=== PATIENT | male | born 1955 | race Caucasian/White ===

== ENCOUNTER 2017-06-27 02:57 | Inpatient (IN) | payer MEDICARE, OTHER ==
[2017-06-27] MEDS ORDERED: ALBUTEROL NEBULIZED 2.5 MG/3 ML INHALATION STA (03:16)
[2017-06-27] MEDS ORDERED: SODIUM CHLORIDE 0.9% 500 ML IV STA (03:16)
[2017-06-27] MEDS ORDERED: IPRATROPIUM 0.5 MG/2.5 ML NEBU INHALATION STA (03:16)
[2017-06-27] MEDS ORDERED: SODIUM CHLORIDE 0.9% 1,000 ML IV STA ×2 (03:16)
[2017-06-27] MEDS ORDERED: ACETAMINOPHEN IV (For NPO) 1,000 MG in EMPTY BAG 1 BAG IVPB STA (03:16)
[2017-06-27] MEDS ORDERED: KETOROLAC 30 MG/ML 1 ML VIAL IVP STA (03:16)
[2017-06-27] MEDS ORDERED: LEVOFLOXACIN 750MG-D5W PMX 750 MG in DEXTROSE/WATER 1 150ML.BAG IVPB STA (03:16)
[2017-06-27] MEDS ORDERED: LORazepam 2 MG/ML INJ IV STA (03:22)
[2017-06-27] MEDS ORDERED: PNEUMONIA PROTOCOL UTILIZED 1 EACH MISC PO PRN (03:24)
--- NOTE | 2017-06-27 03:24 | ED ---
General Adult HPI - General Chief complaint: Shortness of Breath Stated complaint: SANTANA Time Seen by Provider: 06/27/17 03:15 Source: EMS, RN notes reviewed, old records reviewed Mode of arrival: EMS Limitations: no limitations - History of Present Illness Initial comments: This is a 62 -year-old male to the ER for evaluation of fever shortness of breath. Patient's poor strain secondary to medical condition, CPAP. Patient brought in by caregiver for evaluation regarding to low pulse ox elevated fever significant shortness of breath. Patient got to the bathroom and staff noticed patient to be not acting appropriately. He did notice fever with difficulty breathing. History otherwise obtained from chart - Related Data Allergies Allergy/AdvReac Type Severity Reaction Status Date / Time No Known Allergies Allergy Verified 06/27/17 03:31 Review of Systems ROS Statement: Those systems with pertinent positive or pertinent negative responses have been documented in the HPI. ROS Other: All systems not noted in ROS Statement are negative. Past Medical History Past Medical History: Hypertension, Seizure Disorder Additional Past Medical History / Comment(s): Cerebral palsy History of Any Multi-Drug Resistant Organisms: None Reported Past Psychological History: No Psychological Hx Reported Smoking Status: Never smoker Past Alcohol Use History: None Reported Past Drug Use History: None Reported General Exam Limitations: no limitations General appearance: alert, in no apparent distress Head exam: Present: atraumatic, normocephalic, normal inspection Eye exam: Present: normal appearance, PERRL, EOMI. Absent: scleral icterus, conjunctival injection, periorbital swelling ENT exam: Present: normal exam, mucous membranes moist Neck exam: Present: normal inspection. Absent: tenderness, meningismus, lymphadenopathy Respiratory exam: Present: wheezes, accessory muscle use, decreased breath sounds, prolonged expiratory. Absent: normal lung sounds bilaterally, respiratory distress, rales, rhonchi, stridor Cardiovascular Exam: Present: normal rhythm, tachycardia, normal heart sounds. Absent: systolic murmur, diastolic murmur, rubs, gallop, clicks GI/Abdominal exam: Present: soft, normal bowel sounds. Absent: distended, tenderness, guarding, rebound, rigid Extremities exam: Present: normal inspection, full ROM, normal capillary refill. Absent: tenderness, pedal edema, joint swelling, calf tenderness Back exam: Present: normal inspection Neurological exam: Present: alert, oriented X3, CN II-XII intact Psychiatric exam: Present: normal affect, normal mood Skin exam: Present: warm, dry, intact, normal color. Absent: rash Course Vital Signs 06/27/17 06/27/17 03:00 03:42 Temperature 102.6 F H Pulse Rate 56 L 142 H Respiratory 28 H Rate Blood Pressure 118/72 O2 Sat by Pulse 98 Oximetry - Reevaluation(s) Reevaluation #1: 06/27/17 03:23 Patient on nonrebreather remaining hypoxic, will try BiPAP Reevaluation #2: 06/27/17 04:22 Patient actually improving EKG Findings - EKG Comments: EKG Findings:: EKG shows sinus tachycardia rate 149, ID [id number], QRS 98, QTC 500 Medical Decision Making - Medical Decision Making 62 male the ER for evaluation. Patient's presenting for evaluation regards to difficulty breathing low oxygen fever. Positive pneumonia on exam bilateral. Patient started on IV antibiotics and placed on BiPAP secondary to low O2 - Lab Data Result diagrams: 06/27/17 03:24 Lab Results 06/27/17 06/27/17 06/27/17 Range/Units 03:24 03:24 03:24 WBC 9.8 (3.8-10.6) k/uL RBC 4.01 L (4.30-5.90) m/uL Hgb 12.5 L (13.0-17.5) gm/dL Hct 36.7 L (39.0-53.0) % MCV 91.6 (80.0-100.0) fL MCH 31.2 (25.0-35.0) pg MCHC 34.0 (31.0-37.0) g/dL RDW 12.9 (11.5-15.5) % Plt Count 187 (150-450) k/uL Neutrophils % 89 % Lymphocytes % 6 % Monocytes % 4 % Eosinophils % 1 % Basophils % 0 % Neutrophils # 8.7 H (1.3-7.7) k/uL Lymphocytes # 0.6 L (1.0-4.8) k/uL Monocytes # 0.4 (0-1.0) k/uL Eosinophils # 0.1 (0-0.7) k/uL Basophils # 0.0 (0-0.2) k/uL PT (9.0-12.0) sec INR (<1.2) APTT (22.0-30.0) sec NT-Pro-B Natriuret Pep 89 pg/mL Influenza Type A RNA Not Detected (Not Detectd) Influenza Type B (PCR) Not Detected (Not Detectd) 06/27/17 Range/Units 03:24 WBC (3.8-10.6) k/uL RBC (4.30-5.90) m/uL Hgb (13.0-17.5) gm/dL Hct (39.0-53.0) % MCV (80.0-100.0) fL MCH (25.0-35.0) pg MCHC (31.0-37.0) g/dL RDW (11.5-15.5) % Plt Count (150-450) k/uL Neutrophils % % Lymphocytes % % Monocytes % % Eosinophils % % Basophils % % Neutrophils # (1.3-7.7) k/uL Lymphocytes # (1.0-4.8) k/uL Monocytes # (0-1.0) k/uL Eosinophils # (0-0.7) k/uL Basophils # (0-0.2) k/uL PT 13.6 H (9.0-12.0) sec INR 1.5 H (<1.2) APTT 28.8 (22.0-30.0) sec NT-Pro-B Natriuret Pep pg/mL Influenza Type A RNA (Not Detectd) Influenza Type B (PCR) (Not Detectd) - Radiology Data Radiology results: report reviewed (Chest x-ray positive for bilateral pneumonia ), image reviewed Critical Care Time Critical Care Time: Yes Total Critical Care Time: 31 Disposition Clinical Impression: Community acquired pneumonia, Hypoxia, Acute respiratory failure Disposition: ADMITTED IP TO THIS [facility] Condition: Serious Referrals: Willy Woodson MD [Primary Care Provider] - 1-2 days
[2017-06-27 03:40] LABS: Basophils % (A) 0 %; Eosinophils # (A) 0.1 k/uL (0-0.7); Eosinophils % (A) 1 %; HCT 36.7 % (39.0-53.0); HGB 12.5 gm/dL (13.0-17.5); Lymphocytes # (A) 0.6 k/uL (1.0-4.8); Lymphocytes % (A) 6 %; MCH 31.2 pg (25.0-35.0); MCV 91.6 fL (80.0-100.0); Mean Platelet Volume 7.1; Monocytes # (A) 0.4 k/uL (0-1.0); Monocytes % (A) 4 %; Neutrophils # (A) 8.7 k/uL (1.3-7.7); Neutrophils % (A) 89 %; Platelet Count 187 k/uL (150-450); RBC 4.01 m/uL (4.30-5.90); RDW 12.9 % (11.5-15.5); WBC 9.8 k/uL (3.8-10.6)
[2017-06-27 03:48] LABS: INR 1.5 (<1.2); Partial Thromboplastin Time 28.8 sec (22.0-30.0); Prothrombin Time 13.6 sec (9.0-12.0)
--- NOTE | 2017-06-27 04:07 | XR ---
ADDENDUM - Added by Arcenio Morse MD on 06/27/2017 4:07 AM (-07:00) The last words of the impression should state: Suspicious for pneumonia, not suspicious nymph for pneumonia. EXAM: XR Chest, 1 View CLINICAL HISTORY: ITS.REASON XR Reason: sob TECHNIQUE: Frontal view of the chest. COMPARISON: None. FINDINGS: Lungs: Patchy opacities in both perihilar regions, left greater than right, as well as the left lung base. Pleural space: Unremarkable. No pneumothorax. Heart: Mild cardiomegaly. Mediastinum: See above. Bones/joints: Severe degenerative changes of both shoulder joints. Upper abdomen: Asymmetric elevation the right hemidiaphragm. IMPRESSION: Patchy opacities in both lungs, left greater than right, may represent edema although are suspicious nymph for pneumonia.
[2017-06-27 04:36] LABS: Creatine Kinase MB 1.3 ng/mL (0.0-2.4); Troponin I 0.013 ng/mL (0.000-0.034)
[2017-06-27 04:39] LABS: ALT 23 U/L (21-72); AST 22 U/L (17-59); Albumin 2.9 g/dL (3.5-5.0); Alkaline Phosphatase 66 U/L (38-126); Anion Gap 10 mmol/L; Blood Urea Nitrogen 19 mg/dL (9-20); Calcium 7.8 mg/dL (8.4-10.2); Carbon Dioxide 22 mmol/L (22-30); Chloride 100 mmol/L (98-107); Glucose 143 mg/dL (74-99); Magnesium 1.3 mg/dL (1.6-2.3); Potassium 3.4 mmol/L (3.5-5.1); Sodium 132 mmol/L (137-145); Total Bilirubin 0.8 mg/dL (0.2-1.3); Total Protein 5.3 g/dL (6.3-8.2)
[2017-06-27] MEDS ORDERED: CLINDAMYCIN 600 MG in DEXTROSE 5% IN WATER 50 ML IVPB SCH ×2 (08:00)
[2017-06-27] MEDS: MAGNESIUM SULFATE-D5W PMX 1 GM in DEXTROSE/WATER 1 100ML.BAG IVPB SCH ×4 (09:42→14:39)
[2017-06-27] MEDS: SODIUM CHLORIDE 0.9% 1,000 ML IV SCH ×3 (09:48→20:48)
[2017-06-27] MEDS: ENOXAPARIN 40 MG/0.4 ML SYRINGE SQ SCH (09:49)
[2017-06-27] MEDS: POTASSIUM CHLORIDE ER 20 MEQ TAB.ER PO SCH ×3 (09:50→14:40)
[2017-06-27] MEDS: busPIRone HCl 10 MG TAB PO SCH ×2 (10:23→20:48)
[2017-06-27] MEDS: ARIPiprazole 5 MG TAB PO SCH (10:24)
--- NOTE | 2017-06-27 11:04 | HP ---
HISTORY AND PHYSICAL CHIEF COMPLAINT: Shortness of breath and fever. HISTORY OF PRESENT ILLNESS: This is a 62-year-old gentleman who was brought into the emergency room from the [facility]. The patient got up to get to the bathroom in the night, noted that he was short of breath and had fever. They brought him to the emergency room. In the ER, the patient apparently had a temperature of 102.6 with pulse rate of 56, respirations 28. He was noted to have a pulse ox of about 84% and was placed on a non-rebreather, with 98%. He subsequently was placed on BiPAP. He was admitted to the hospital. His heart rate has gone up to 142. Chest x-ray suggested pneumonia. The patient this morning at the time of my evaluation is afebrile with a temperature 95.9 axillary, pulse 109, respirations 24, blood pressure 101/69 and pulse ox of 98% on 100% BiPAP of 10/5. The patient is alert as usual. He does have a history of mental retardation, previous seizure disorder, head injury. The patient is handicapped and lives in a nursing facility. The patient has otherwise history of hypertension and degenerative arthritis. The patient has not had any seizures recently. He is on medications for behavioral issues and seen by Psychiatry. PAST MEDICAL HISTORY: As mentioned about, history of mental retardation and seizure disorder associated. The patient also has a history of previous injuries. He has had a history of hypertension. No history of any diabetes, lung disease, liver disease, kidney disease. No history of any ulcers, TB, hepatitis. No history of reported rheumatic fever. No history of any myocardial infarction or CVA. Does have significant degenerative arthritis, especially affecting the right knee and the shoulder joints. The patient is basically wheelchair to bed status. REVIEW OF SYSTEMS: NEURO: Denies any headaches or dizziness. PSYCH: Cooperative. CARDIAC: Denies chest pain. RESPIRATORY: Denies shortness of breath. Does have a cough. GI: No reported nausea, vomiting. : No reported symptoms of dysuria or hematuria. EXTREMITIES: Chronic pain in knee joint and shoulder. CONSTITUTIONAL: He had a temperature at the time of admission. PAST SURGICAL HISTORY: Left shoulder and neck surgery. PERSONAL HISTORY: Non-smoker. Alcohol none. ALLERGIES: NONE KNOWN. MEDICATIONS: 1. Abilify 5 mg daily. 2. Tofranil 10 mg at bedtime. 3. Tylenol PM at bedtime. 4. Multivitamin daily. 5. Lamictal 150 mg at bedtime. 6. Lisinopril 10 mg daily. 7. Buspirone 30 mg b.i.d. SOCIAL HISTORY: The patient has never been . FAMILY MEDICAL HISTORY: Father ; he had a history of lung carcinoma, renal carcinoma, COPD and coronary artery disease. Mother is , too. Patient had a sister who had sudden at the age of 50. No other siblings. The patient's guardian, I believe, is a niece, and public guardian. PHYSICAL EXAMINATION: Pleasant 62-year-old at present on the BiPAP, which is switched over to nasal cannula at 5 L with oxygen saturation 93%. VITALS: Temperature 95.9, pulse 109, respirations 24, blood pressure 101/69. HEENT: Normocephalic. Nostrils are clear. Oral cavity is moist. Dentition fair. Ears reveal no drainage. NECK: Decreased range of motion. No JVD. No carotid bruits. CHEST EXAMINATION: Difficult to assess. Patient does not take good deep breaths for assessment. CARDIAC: Normal S1, S2 with no gallops, murmurs. ABDOMEN: Soft. No palpable masses. Bowel sounds normal. No organomegaly. No abdominal bruits. Extremities reveal no edema. The patient has decreased range of motion of the right knee and the left shoulder. Skin is intact. Neurologically patient at baseline is able to communicate with difficulty in understanding speech. Does move his upper and lower extremities spontaneously. Plantars are equivocal. LABORATORY ASSESSMENT: White count normal at 9.8, hemoglobin 12.5. INR is 1.5, potassium 3.4, sodium 132. BUN and creatinine are normal. Glucose 143. Creatinine is 0.5, glucose 143, random magnesium 1.3. Albumin 2.9. Influenza negative. Troponin 0.013. BNP is 89. Chest x-ray shows fluffy infiltrates with opacities in both lungs, left greater than right; may represent edema, although suspicious for pneumonia. ASSESSMENT: 1. Pneumonia. 2. Acute respiratory failure. 3. Hypoxia. 4. History of mental retardation. 5. Hypertension, on medical therapy. 6. Hyponatremia. 7. Hypokalemia. 8. Hypomagnesemia. PLAN: The patient at present will be continued on oxygen therapy. He may require BiPAP intermittently. The patient will be placed on updrafts, oxygen, antibiotics. Will discontinue the clindamycin. Continue the Levaquin. The patient's prognosis remains guarded. Condition discussed with the patient. PATY / ABELINO: [id number] /
[2017-06-27] MEDS: IPRATROPIUM-ALBUTEROL 3 ML NEB INHALATION SCH ×3 (11:15→19:56)
[2017-06-27 18:39] LABS: Appearance,Urine Clear (Clear); Bilirubin,Urine Negative (Negative); Blood,Urine Negative (Negative); Color,Urine Yellow; Glucose,Urine (UA) 1+ (Negative); Ketones,Urine Negative (Negative); Leukocyte Esterase,Urine Negative (Negative); Nitrite,Urine Negative (Negative); PH, Urine 5.5 (5.0-8.0); Protein,Urine Trace (Negative); Specific Gravity,Urine 1.019 (1.001-1.035); Urobilinogen,Urine <2.0 mg/dL (<2.0)
[2017-06-27] MEDS: lamoTRIgine 100 MG TAB PO SCH (20:48)
[2017-06-28] MEDS ORDERED: ONDANSETRON 4 MG/2 ML VIAL IVP PRN (01:28)
--- NOTE | 2017-06-28 01:53 | XR ---
EXAMINATION TYPE: XR abdomen 1V DATE OF EXAM: 06/28/2017 COMPARISON: NONE HISTORY: Vomiting TECHNIQUE: 2 views FINDINGS: There is gaseous distention of loops of large and small bowel. There is gas down to the rec char. I do not see evidence of a mechanical bowel obstruction. There is no sign of free air. There are no pathologic calcifications over the kidneys. IMPRESSION: Intestinal gas pattern consistent with ileus. No sign of free air.
[2017-06-28] MEDS: LEVOFLOXACIN 750MG-D5W PMX 750 MG in DEXTROSE/WATER 1 150ML.BAG IVPB SCH (05:49)
[2017-06-28] MEDS: IPRATROPIUM-ALBUTEROL 3 ML NEB INHALATION SCH ×4 (06:45→19:39)
--- NOTE | 2017-06-28 07:34 | XR ---
EXAMINATION TYPE: XR chest 1V DATE OF EXAM: 06/28/2017 CLINICAL HISTORY: Difficulty breathing and pneumonia progress study. TECHNIQUE: Single AP portable upright view of the chest is obtained. COMPARISON: Chest x-ray from one day earlier and older study October 12, 2011 FINDINGS: The osseous structures are demineralized. Advanced degenerative change in both shoulders i s redemonstrated. There is persistent mild cardiomegaly. There is chronic parenchymal changes with pe rsistent right medial basilar opacity and left mid to lower lung opacities. No large pleural effusion or pneumothorax is seen bilaterally. IMPRESSION: Overall stable findings, cardiomegaly with left greater than right bilateral lower lung infiltrates and/or atelectasis. No significant change from one day earlier.
[2017-06-28] MEDS: busPIRone HCl 10 MG TAB PO SCH ×2 (08:40→20:43)
[2017-06-28] MEDS: ENOXAPARIN 40 MG/0.4 ML SYRINGE SQ SCH (08:40)
[2017-06-28] MEDS: ARIPiprazole 5 MG TAB PO SCH (08:41)
[2017-06-28] MEDS: IMIPRAMINE 10 MG TAB PO SCH (08:41)
[2017-06-28] MEDS: LISINOPRIL 10 MG TAB PO SCH (08:41)
[2017-06-28] MEDS: SODIUM CHLORIDE 0.9% 1,000 ML IV SCH ×2 (10:47→20:41)
[2017-06-28 10:53] LABS: Anion Gap 7 mmol/L; Blood Urea Nitrogen 10 mg/dL (9-20); Carbon Dioxide 27 mmol/L (22-30); Chloride 106 mmol/L (98-107); Glucose 111 mg/dL (74-99); Magnesium 2.1 mg/dL (1.6-2.3); Potassium 3.5 mmol/L (3.5-5.1); Sodium 140 mmol/L (137-145)
--- NOTE | 2017-06-28 11:59 | P.PN ---
Subjective Progress Note Date: 06/28/17 Principal diagnosis: Pneumonia with acute respiratory failure This 62-year-old gentleman was admitted to the hospital with shortness of breath fever and hypoxia. The patient initially needed BiPAP. Now is on 5 L of oxygen maintaining adequate oxygenation. Patient has no complaints. His handicapped mentally and physically. But is able to communicate. The patient has had no further fever and influenza was negative. Vitals have remained stable. No reported nausea vomiting does have some cough denies chest pain shortness of breath. Wants to go home. REVIEW OF SYSTEMS: Neuro: Denies any headaches dizziness. Psych: Behavior stable Cardiac: Denies chest Respiratory: Has some cough. GI: Denies abdominal pain no reported nausea vomiting diarrhea :, Incontinence Extremities: Chronic knee pain Skin: Intact. Constitutional: No fever, chills. Objective - Vital Signs Vital signs: Vital Signs Temp 98.1 F 06/28/17 11:24 Pulse 103 H 06/28/17 11:24 Resp 20 06/28/17 11:24 BP 128/72 06/28/17 11:24 Pulse Ox 95 06/28/17 11:24 Intake & Output 06/27/17 06/28/17 06/28/17 17:59 06:59 18:59 Intake Total 0 Output Total Balance 0 Weight Intake: IV Sodium Chloride 0.9% 1, 000 ml @ 100 mls/hr IV . Q10H [facility] Rx#:[id number] Oral 0 Output: Stool Urine/Stool Mix Other: Voiding Method # Voids PHYSICAL EXAMINATION: Cooperative, at present in no acute distress. HEENT: Neck decreased range of motion no JVD Chest: Improved airflow occasional rhonchi, Cardiac:Normal S1-S,no gallop no murmur Abdomen[ Soft[bowel sounds present Extremities:[No vee][no tenderness] Neurologically:Alert oriented to person] - Labs CBC & Chem 7: 06/27/17 03:24 06/28/17 10:27 Labs: Abnormal Lab Results - Last 24 Hours (Table) 06/27/17 06/28/17 Range/Units 16:00 10:27 Creatinine 0.40 L (0.66-1.25) mg/dL Glucose 111 H (74-99) mg/dL Calcium 8.0 L (8.4-10.2) mg/dL Urine Protein Trace H (Negative) Urine Glucose (UA) 1+ H (Negative) Microbiology - Last 24 Hours (Table) 06/27/17 03:24 Blood Culture - Preliminary Blood No Growth after 24 hours Assessment and Plan Assessment: ASSESSMENT: 1. Acute respiratory failure improved. 2. Bilateral pneumonia. 3. Essential Hypertension. 4. Mentally handicapped. 5. Physically handicapped. PLAN: We will continue present antibiotics oxygen support repeat chest x-ray in the morning check blood work today. Patient had potassium and magnesium replacement yesterday.
[2017-06-28 12:27] LABS: Glucose,Whole Blood 107 mg/dL (75-99)
[2017-06-28] MEDS: POTASSIUM CHLORIDE ER 20 MEQ TAB.ER PO SCH ×2 (12:33→14:08)
[2017-06-28 17:18] LABS: Glucose,Whole Blood 94 mg/dL (75-99)
[2017-06-28] MEDS: lamoTRIgine 100 MG TAB PO SCH (20:43)
[2017-06-29] MEDS: LEVOFLOXACIN 750MG-D5W PMX 750 MG in DEXTROSE/WATER 1 150ML.BAG IVPB SCH (03:39)
[2017-06-29] MEDS: SODIUM CHLORIDE 0.9% 1,000 ML IV SCH (03:39)
[2017-06-29 07:00] LABS: HCT 36.1 % (39.0-53.0); HGB 12.9 gm/dL (13.0-17.5); MCHC 35.7 g/dL (31.0-37.0); MCV 89.6 fL (80.0-100.0); Mean Platelet Volume 7.2; Platelet Count 209 k/uL (150-450); RBC 4.03 m/uL (4.30-5.90); RDW 13.1 % (11.5-15.5)
[2017-06-29] MEDS: IPRATROPIUM-ALBUTEROL 3 ML NEB INHALATION SCH ×4 (07:12→20:00)
[2017-06-29] MEDS: LISINOPRIL 10 MG TAB PO SCH (08:27)
[2017-06-29] MEDS: busPIRone HCl 10 MG TAB PO SCH (08:27)
[2017-06-29] MEDS: ENOXAPARIN 40 MG/0.4 ML SYRINGE SQ SCH (08:27)
[2017-06-29] MEDS: ARIPiprazole 5 MG TAB PO SCH (08:28)
[2017-06-29] MEDS: IMIPRAMINE 10 MG TAB PO SCH (08:28)
[2017-06-29] MEDS: methylPREDNISolone SOD SUCCI 40 MG/ML 1 ML VIAL IV SCH (09:15)
--- NOTE | 2017-06-29 15:32 | XR ---
EXAMINATION TYPE: XR chest 2V DATE OF EXAM: 06/29/2017 COMPARISON: 06/28/2017 TECHNIQUE: PA and lateral views submitted. HISTORY: Shortness of breath FINDINGS: Chronic rib deformities are seen and there is arthropathy of the shoulders and postsurgical change le ft humerus. No pneumothorax. Coarsened interstitium is seen with subsegmental areas of atelectasis or infiltrate. Dilated bowel loops are seen in the abdomen. Degenerative change of the spine. Stable ca rdiomegaly. IMPRESSION: 1. A dilated bowel loops in the abdomen correlate clinically. Ileus or obstruction. 2. subsegmental areas of atelectasis or early infiltrate bilaterally. Could not exclude mild central venous congestion or pneumonitis.
--- NOTE | 2017-06-29 22:09 | PN ---
PROGRESS NOTE CHIEF COMPLAINT: Re-evaluation. HISTORY OF PRESENT ILLNESS: This gentleman was admitted to the hospital with shortness of breath, cough, congestion, noted to have evidence of pneumonia. The patient has been afebrile post hospitalization. The patient had an episode of nausea and vomiting yesterday. The patient's abdominal x-ray revealed ileus but no obstruction. The patient started being given clear liquids yesterday, tolerating well. Will advance the diet today. Repeat chest x-ray done today suggests a dilated loop of bowel in the abdomen; correlate clinically for ileus or obstruction, and the patient had subsegmental areas of atelectasis or early infiltrates bilaterally. The patient basically on examination today is wheezing some. REVIEW OF SYSTEMS: NEURO: Denies any headaches, dizziness. PSYCH: Cooperative. CARDIAC: Denies chest pain, shortness of breath. Has a cough. GI: No nausea, vomiting. Has had bowel movements. : No symptoms. Has some incontinence. EXTREMITIES: Has chronic pain in right knee. CONSTITUTIONAL: No fever or chills. PHYSICAL EXAMINATION: Pleasant gentleman with underlying history of mental retardation, at present in no distress. Vital signs revealed temperature 98.3, pulse 108, respirations 18, blood pressure 126/70, pulse ox 95% on 3 L. HEENT: Normocephalic. NECK: No JVD. Chest has bilateral expiratory wheeze. CARDIAC: Distant heart sounds S1, S2 with no gallop. Systolic murmur 2/6, left sternal border. ABDOMEN: Soft. Bowel sounds present. Extremities reveal no edema. Neurologically awake, alert, oriented to person. Moves upper and lower extremities with some restrictions, which are chronic. The patient does have a history of mental retardation. LABORATORY ASSESSMENT: CBC which shows normal white count and platelet count. Hemoglobin is 12.9. ASSESSMENT: 1. Pneumonitis. 2. Hypertension. 3. Mental retardation. 4. Acute respiratory failure, improving. PLAN: Continue present medical regimen. Patient will receive updrafts. Will add a small dose of steroids for the next 48 hours to see if they will help clear his wheezing. The patient's condition discussed with the patient. Prognosis is guarded. MMODL / IJN: [id number] /
[2017-06-30] MEDS: lamoTRIgine 100 MG TAB PO SCH
[2017-06-30] MEDS: methylPREDNISolone SOD SUCCI 40 MG/ML 1 ML VIAL IV SCH (00:09)
[2017-06-30] MEDS: SODIUM CHLORIDE 0.9% 1,000 ML IV SCH ×3 (00:13→22:36)
[2017-06-30 00:35] LABS: Basophils % (A) 0 %; Eosinophils % (A) 0 %; HCT 39.2 % (39.0-53.0); HGB 13.1 gm/dL (13.0-17.5); Lymphocytes # (A) 0.6 k/uL (1.0-4.8); Lymphocytes % (A) 5 %; MCH 30.3 pg (25.0-35.0); MCHC 33.5 g/dL (31.0-37.0); MCV 90.4 fL (80.0-100.0); Mean Platelet Volume 7.3; Monocytes # (A) 0.6 k/uL (0-1.0); Monocytes % (A) 5 %; Neutrophils # (A) 10.2 k/uL (1.3-7.7); Neutrophils % (A) 88 %; Platelet Count 249 k/uL (150-450); RBC 4.33 m/uL (4.30-5.90); RDW 13.1 % (11.5-15.5); WBC 11.6 k/uL (3.8-10.6)
[2017-06-30] MEDS: PANTOPRAZOLE 40 MG/10 ML VIAL IVP SCH ×3 (02:12→22:31)
[2017-06-30] MEDS ORDERED: LEVOFLOXACIN 750 MG TAB PO SCH (05:00)
[2017-06-30] MEDS: IPRATROPIUM-ALBUTEROL 3 ML NEB INHALATION SCH ×4 (08:16→21:07)
[2017-06-30 08:39] LABS: Basophils % (A) 0 %; Eosinophils % (A) 0 %; HCT 37.4 % (39.0-53.0); HGB 12.8 gm/dL (13.0-17.5); Lymphocytes # (A) 1.2 k/uL (1.0-4.8); Lymphocytes % (A) 9 %; MCH 31.4 pg (25.0-35.0); MCHC 34.3 g/dL (31.0-37.0); MCV 91.4 fL (80.0-100.0); Mean Platelet Volume 7.2; Monocytes # (A) 0.9 k/uL (0-1.0); Monocytes % (A) 7 %; Neutrophils # (A) 10.6 k/uL (1.3-7.7); Neutrophils % (A) 82 %; Platelet Count 262 k/uL (150-450); RBC 4.09 m/uL (4.30-5.90); RDW 13.2 % (11.5-15.5)
[2017-06-30] MEDS: ARIPiprazole 5 MG TAB PO SCH (10:26)
[2017-06-30] MEDS: busPIRone HCl 10 MG TAB PO SCH ×3 (10:26→22:31)
[2017-06-30] MEDS: IMIPRAMINE 10 MG TAB PO SCH (10:27)
[2017-06-30] MEDS: LISINOPRIL 10 MG TAB PO SCH (10:27)
[2017-06-30] MEDS: LEVOFLOXACIN 750MG-D5W PMX 750 MG in DEXTROSE/WATER 1 150ML.BAG IVPB SCH (10:30)
--- NOTE | 2017-06-30 10:54 | P.CONS ---
History of Present Illness - Reason for Consult Consult date: 06/30/17 Hematemesis Requesting physician: Willy Woodson - History of Present Illness 62-year-old male admitted with shortness of breath fever secondary to pneumonia. Consult requested for hematemesis. Patient has a history of cerebral palsy history obtained from medical records and nursing staff. According to the nurse here 500 mL of blood-tinged emesis last night and an additional hematemesis the night before. No reports of hematochezia or melena. Admission hemoglobin 12.5 presently 12.8. MCV 91 white count 13. INR 1.5. BUN 10. Creatinine 0.4. Home medications reviewed no antiplatelets NSAIDs or anticoagulants. Unsure patient's had a history of EGD colonoscopy or GI bleed. Review of Systems Constitutional: Denies fever, chills, sweats, weight gain, or loss. History of mental retardation. Cerebral palsy. HEENT: Negative for migraines, blurred vision or loss, earaches, drainage, tinnitus, oral mucosal lesions, dysphagia, or odynophagia. Cardiac: Hypertension. Negative for chest pain, arrhythmias, or palpitation. Respiratory: Negative for shortness of breath, hemoptysis, cough, or sputum production. Gastrointestinal: See HPI for pertinent findings. Genitourinary: Negative for hematuria, urgency, frequency, polyuria, dysuria, or penile discharge. Musculoskeletal: Seizure disorder. Negative for muscle aches, swelling, arthritis, and arthralgias. Neurologic: Negative for stroke or TIA. Endocrine: Negative for thyroid problems. Skin: Negative for rash or itching. Psychiatric: Negative history for depression and anxiety ROS unobtainable: due to mental status Past Medical History Past Medical History: Hypertension, Seizure Disorder Additional Past Medical History / Comment(s): Cerebral palsy History of Any Multi-Drug Resistant Organisms: None Reported Past Psychological History: No Psychological Hx Reported Smoking Status: Unknown if ever smoked Past Alcohol Use History: None Reported Past Drug Use History: None Reported Medications and Allergies Home Medications Medication Instructions Recorded Confirmed Type ARIPiprazole [Abilify] 5 mg PO HS@2100 06/27/17 06/27/17 History Acetaminophen/Diphenhydramine 1 tab PO HS 06/27/17 06/27/17 History [Tylenol PM 500-25mg] Imipramine [Tofranil] 10 mg PO HS 06/27/17 06/27/17 History Lisinopril [Zestril] 10 mg PO DAILY@0800 06/27/17 06/27/17 History Multivitamin,Therapeutic [Thera] 1 tab PO DAILY 06/27/17 06/27/17 History busPIRone HCL 30 mg PO BID 06/27/17 06/27/17 History lamoTRIgine [LaMICtal] 150 mg PO BID 06/27/17 06/27/17 History metroNIDAZOLE 0.75% CREAM 1 applicate TOPICAL DAILY 06/27/17 06/27/17 History [Metrocream] Allergies Allergy/AdvReac Type Severity Reaction Status Date / Time No Known Allergies Allergy Verified 06/27/17 11:10 Physical Exam Vitals: Vital Signs Temp Pulse Pulse Resp BP Pulse Ox 06/30/17 08:29 98 06/30/17 08:18 94 94 L 06/30/17 08:00 14 06/30/17 07:00 98.6 F 88 14 111/61 93 L 06/30/17 03:58 99.5 F 101 H 19 103/55 92 L 06/29/17 23:44 99.0 F 82 22 109/75 96 06/29/17 20:13 100 06/29/17 20:00 99.1 F 100 86 20 122/78 94 L 06/29/17 16:00 16 06/29/17 15:00 97.6 F 106 H 16 138/84 94 L 06/29/17 13:57 100 06/29/17 13:43 100 Intake and Output 06/29/17 06/30/17 06/30/17 22:59 06:59 14:59 Intake Total 240 650 Balance 240 650 Intake: Intake, IV Titration 650 Amount Sodium Chloride 0.9% 1, 650 000 ml @ 100 mls/hr IV . Q10H [facility] Rx#:[id number] Oral 240 Other: Voiding Method Urinal Urinal Diaper Diaper Incontinent Incontinent # Voids 2 1 # Emeses 1 Weight 72 kg General appearance: The patient is alert, in no acute distress. HET: Head is normocephalic and atraumatic. Pupils are equal and reactive. Oropharynx is clear without lesions. Neck: Supple without lymphadenopathy. Trachea midline. Heart: S1 S2. Regular rate and rhythm. Lungs: No crackles or wheezes are heard. Abdomen: Soft, nontender, nondistended with bowel sounds. No peritoneal signs. No palpable organomegaly or masses. Extremities: Normal skin color and turgor. No cyanosis, rash, ulceration, clubbing, or edema. Radial and pedal pulses are 2/4 bilaterally. Neurological: No focal deficits. Strength and sensation are grossly intact. Results CBC & Chem 7: 06/30/17 07:20 06/28/17 10:27 Labs: Abnormal Lab Results - Last 24 Hours (Table) 06/30/17 06/30/17 Range/Units 00:14 07:20 WBC 11.6 H 13.0 H (3.8-10.6) k/uL RBC 4.09 L (4.30-5.90) m/uL Hgb 12.8 L (13.0-17.5) gm/dL Hct 37.4 L (39.0-53.0) % Neutrophils # 10.2 H 10.6 H (1.3-7.7) k/uL Lymphocytes # 0.6 L (1.0-4.8) k/uL Microbiology - Last 24 Hours (Table) 06/27/17 03:24 Blood Culture - Preliminary Blood No Growth after 72 hours Assessment and Plan (1) GI bleed Narrative/Plan: 62-year-old male admitted with shortness of breath pneumonia with hematemesis 2 with mild component of acute blood loss anemia possible peptic ulcer disease possible Diana-Powell tear. Current Visit: Yes Status: Acute Code(s): K92.2 - GASTROINTESTINAL HEMORRHAGE, UNSPECIFIED SNOMED Code(s): 43845413 (2) Anemia Current Visit: Yes Status: Acute Code(s): D64.9 - ANEMIA, UNSPECIFIED SNOMED Code(s): 890004652 (3) Cerebral palsy Current Visit: Yes Status: Chronic Code(s): G80.9 - CEREBRAL PALSY, UNSPECIFIED SNOMED Code(s): 654622976 Plan: 1. Continue Protonix 40 mg IV twice daily. 2. CBC monitoring. 3. Nothing by mouth except medications. 4. Will proceed with EGD evaluation. Thank you for this kind referral and the opportunity to participate in the care of your patient. This consultation was discussed with Dr. Marshall. The impression and plan of care have been directed as dictated.
--- NOTE | 2017-06-30 18:20 | P.PN ---
Subjective Progress Note Date: 06/30/17 Principal diagnosis: Pneumonia with acute respiratory failure History present illness: This 62-year-old gentleman was admitted to the hospital with a fever and some cough and chest x-ray suggestive of some infiltrates. The patient was hypoxic requiring oxygenation with BiPAP. He also was started on IV antibiotics. Blood cultures are negative so far. The patient had an episode of vomiting 2 days ago. Abdominal x-ray suggested ileus. The patient however has had bowel movements and adequate normal bowel sounds. He last night however had an episode of vomiting and had blood in it. His reported as fresh blood in small quantity. CBC was stable. Vital signs were stable. Episode of vomiting 3 days ago was reported is fecal material. As been no evidence of any bowel obstruction. Patient does have metastatic As well as degenerative arthritis affecting the neck shoulder and right knee. He does take her naproxen on a regular basis. He has significant wheezing yesterday and was placed on IV steroids which she had received 2 doses REVIEW OF SYSTEMS: Neuro: Denies any headaches . Psych: History of anxiety depression Cardiac: Denies chest pain . Respiratory: Denies shortness of breath, does have cough cough. GI: Denies abdominal pain. No diarrhea or constipation, no bowel movement yet. : Denies dysuria hematuria incontinent. Extremities: Denies pain. No edema. Skin: Intact. Constitutional: No fever, chills. Objective - Vital Signs Vital signs: Vital Signs Temp 97.8 F 06/30/17 14:28 Pulse 109 H 06/30/17 14:28 Resp 16 06/30/17 15:23 BP 109/69 06/30/17 14:28 Pulse Ox 91 L 06/30/17 14:28 Intake & Output 06/29/17 06/30/17 06/30/17 18:59 06:59 18:59 Intake Total 620 890 900 Output Total 700 Balance -80 890 900 Weight 72 kg Intake: Intake, IV Titration 650 900 Amount Levofloxacin 750Mg-D5w 100 Pmx 750 mg In Dextrose/ Water 1 150ml.bag @ 100 mls/hr IVPB Q24H [facility] Rx#: [id number] Sodium Chloride 0.9% 1, 650 800 000 ml @ 100 mls/hr IV . Q10H [facility] Rx#:[id number] Oral 620 240 Output: Urine 700 Other: Voiding Method Urinal Urinal Urinal Diaper Diaper Diaper Incontinent Incontinent Incontinent # Voids 2 2 1 # Emeses 1 PHYSICAL EXAMINATION: Cooperative, at present in no acute distress. HEENT: Neck decreased range of motion with tilted head to the right Chest: Bilateral expiratory wheezing improved compared to yesterday Cardiac: Normal S1-S2 no gallops no murmur . Abdomen: Soft bowel sounds present. Extremities: No edema no tenderness Neurologically: Awake, alert, oriented to person with abnormal chronic stable movements. - Labs CBC & Chem 7: 06/30/17 07:20 06/28/17 10:27 Labs: Abnormal Lab Results - Last 24 Hours (Table) 06/30/17 06/30/17 Range/Units 00:14 07:20 WBC 11.6 H 13.0 H (3.8-10.6) k/uL RBC 4.09 L (4.30-5.90) m/uL Hgb 12.8 L (13.0-17.5) gm/dL Hct 37.4 L (39.0-53.0) % Neutrophils # 10.2 H 10.6 H (1.3-7.7) k/uL Lymphocytes # 0.6 L (1.0-4.8) k/uL Microbiology - Last 24 Hours (Table) 06/27/17 03:24 Blood Culture - Preliminary Blood No Growth after 72 hours Assessment and Plan Assessment: ASSESSMENT: 1. Acute respiratory failure improved. 2. Bilateral pneumonia. 3. Essential Hypertension. 4. Mentally handicapped. 5. Physically handicapped. 6. Upper GI bleed/episode of hematemesis PLAN: We will continue present antibiotics oxygen support check blood work today. Consult GI for possible EGD. Discontinue Lovenox and steroids and nonsteroidals condition discussed with the patient, not sure how well he understands that.
[2017-06-30] MEDS ORDERED: ACETAMINOPHEN IV (For NPO) 1,000 MG in EMPTY BAG 1 BAG IVPB PRN (21:28)
[2017-07-01] MEDS: lamoTRIgine 100 MG TAB PO SCH ×2 (00:54→20:11)
[2017-07-01] MEDS: IPRATROPIUM-ALBUTEROL 3 ML NEB INHALATION SCH ×4 (07:27→19:27)
[2017-07-01] MEDS: SODIUM CHLORIDE 0.9% 1,000 ML IV SCH ×3 (07:36→23:01)
[2017-07-01] MEDS: LACTATED RINGERS 1,000 ML IV SCH ×2 (07:36→20:11)
[2017-07-01] MEDS: LEVOFLOXACIN 750MG-D5W PMX 750 MG in DEXTROSE/WATER 1 150ML.BAG IVPB SCH (10:20)
[2017-07-01] MEDS ORDERED: PROPOFOL 10 MG/ML 20 ML VIAL IV ONE (12:05)
[2017-07-01] MEDS ORDERED: SODIUM CHLORIDE 0.9% 1,000 ML IV ONE (12:10)
--- NOTE | 2017-07-01 12:17 | P.PCN ---
Date of Procedure: 07/01/17 Procedure(s) Performed: BRIEF HISTORY: Patient is a 62-year-old, pleasant, white male with history of seizure disorder/mental retardation was admitted hospital with shortness of breath and fever and while in the hospital had 2 episodes of hematemesis. His and scheduled for an upper endoscopy to evaluate further PROCEDURE PERFORMED: Esophagogastroduodenoscopy with biopsy. PREOPERATIVE DIAGNOSIS: Upper GI Bleed. IV sedation per anesthesia. PROCEDURE: After informed consent was obtained, the patient was brought into the endoscopy unit. IV sedation was administered by Anesthesia under continuous monitoring. Initially the Olympus GIF-140 video endoscope was inserted into the mouth. Esophagus intubated without any difficulty. It was gradually advanced into the stomach and duodenum and carefully examined. The bulb and the second part of the duodenum appeared normal. The scope at this time was withdrawn to the stomach, adequately insufflated with air, and upon careful examination, mucosa of the antrum, body, cardia and the fundus appeared normal. The scope was then withdrawn into the esophagus. Moderate size hiatal hernia noted. The GE junction was located at 35 cm from the incisors. There were loss there was long segment Lopez's esophagus extending from 30-35 cm from the incisors and proximal to this there were multiple superficial erosions or exudate identified consistent with severe LA grade C reflux esophagitis. The rest of esophagus appeared normal and the patient tolerated the procedure well. IMPRESSION: 1. Severe reflux esophagitis with multiple superficial erosions and exudates noted in the distal esophagus with no active bleeding. 2. Long segment Lopez's esophagus. 3. Moderate size hiatal hernia RECOMMENDATIONS: The findings of this examination were discussed with the patient. He will be continued on Protonix 40 mg twice daily. Antireflux measures. Diet will be advanced as tolerated.
[2017-07-01] MEDS: LISINOPRIL 10 MG TAB PO SCH (13:29)
[2017-07-01] MEDS: busPIRone HCl 10 MG TAB PO SCH ×2 (13:29→20:12)
[2017-07-01] MEDS: IMIPRAMINE 10 MG TAB PO SCH (13:30)
[2017-07-01] MEDS: PANTOPRAZOLE 40 MG/10 ML VIAL IVP SCH ×2 (13:30→20:12)
[2017-07-01] MEDS: ARIPiprazole 5 MG TAB PO SCH (13:33)
--- NOTE | 2017-07-01 14:14 | P.PN ---
Progress Note - Text Progress Note Date: 07/01/17 Attempt made to discuss EGD findings with patient's guardian Sun Estrada. Guardian did not answer phone. Message not left secondary to unknown mailbox.
[2017-07-01] MEDS: AMPICILLIN-SULBACTAM 1.5 GM in SODIUM CHLORIDE 0.9% 50 ML IVPB SCH ×2 (20:09→23:00)
--- NOTE | 2017-07-01 20:47 | PN ---
PROGRESS NOTE ATTENDING PHYSICIAN: Dr. Tk Woodson. CHIEF COMPLAINT: Re-evaluation. HISTORY OF PRESENT ILLNESS: This is a 62-year-old who was admitted to the hospital with fever. The patient started to to have evidence of pneumonia, which is receiving treatment. The patient is doing relatively well regarding that. The patient however also has episode of vomiting and hematemesis. He did have an EGD done today which shows severe esophagitis and evidence of Lopez's esophagus. Biopsies were taken. Results pending. The patient otherwise denies any other symptoms. He is mentally handicapped. REVIEW OF SYSTEMS: NEURO: Denies any headaches. Cardiac denies chest pain. Respiratory: Denies shortness of breath. His wheezing seems to be improved. GI: No nausea, vomiting, abdominal pain, has had bowel movements. : No symptoms of dysuria, hematuria. Has some incontinence. Extremities: Pain in the right knee. Constitutional: No fever, chills. Did have a low-grade temperature of 100.9 yesterday. PHYSICAL EXAMINATION: The patient vital signs reveals temperature 98.9, pulse 101, respirations 20, blood pressure 148/76, pulse ox 95% on 3 L. HEENT: Normocephalic. NECK: Supple. No JVD. CHEST: Clear to auscultation. Cardiac: Normal S1, S2 with no gallops. Systolic murmur 2/6 left sternal border. ABDOMEN: Soft. No palpable masses. Bowel sounds normal. No organomegaly. No abdominal bruits. Extremities: Reveal no edema. Good pulses both upper and lower extremities. NEUROLOGIC: Awake, alert, mentally retarded but cooperative and presently reading a children's story story book. He has low IQ. The patient has some decreased range of motion of the right knee. LABORATORY ASSESSMENT: White count of 13 with a hemoglobin 12.8 yesterday. ASSESSMENT: 1. Pneumonia. 2. Gastroesophageal reflux with esophagitis and episode of hematemesis. 3. Hematemesis. 4. Mental retardation. 5. Hypertension. PLAN: 1. Continue present medical regimen. We will switch his antibiotic to Unasyn. 2. Prognosis remains guarded. 3. Await biopsy results. 4. government affairs director to Unasyn with possibility of aspiration pneumonia. MMODL / IJN: [id number] /
[2017-07-02] MEDS: AMPICILLIN-SULBACTAM 1.5 GM in SODIUM CHLORIDE 0.9% 50 ML IVPB SCH ×3 (07:09→23:02)
[2017-07-02] MEDS: busPIRone HCl 10 MG TAB PO SCH ×2 (07:10→20:16)
[2017-07-02] MEDS: ARIPiprazole 5 MG TAB PO SCH (07:10)
[2017-07-02] MEDS: PANTOPRAZOLE 40 MG/10 ML VIAL IVP SCH ×2 (07:11→20:15)
[2017-07-02] MEDS: IMIPRAMINE 10 MG TAB PO SCH (07:11)
[2017-07-02] MEDS: LISINOPRIL 10 MG TAB PO SCH (07:11)
[2017-07-02] MEDS: IPRATROPIUM-ALBUTEROL 3 ML NEB INHALATION SCH ×4 (07:21→19:35)
[2017-07-02 07:55] LABS: HCT 38.8 % (39.0-53.0); HGB 13.2 gm/dL (13.0-17.5); MCH 30.8 pg (25.0-35.0); MCV 90.4 fL (80.0-100.0); Mean Platelet Volume 7.4; Platelet Count 282 k/uL (150-450); RBC 4.29 m/uL (4.30-5.90); RDW 13.1 % (11.5-15.5)
[2017-07-02 08:10] LABS: ALT 44 U/L (21-72); AST 38 U/L (17-59); Alkaline Phosphatase 70 U/L (38-126); Anion Gap 7 mmol/L; Blood Urea Nitrogen 6 mg/dL (9-20); Calcium 8.6 mg/dL (8.4-10.2); Carbon Dioxide 30 mmol/L (22-30); Chloride 103 mmol/L (98-107); Glucose 90 mg/dL (74-99); Potassium 3.5 mmol/L (3.5-5.1); Sodium 140 mmol/L (137-145); Total Bilirubin 0.6 mg/dL (0.2-1.3); Total Protein 5.3 g/dL (6.3-8.2)
[2017-07-02] MEDS ORDERED: LEVOFLOXACIN 750 MG TAB PO SCH (09:00)
--- NOTE | 2017-07-02 14:16 | P.PN ---
Subjective Progress Note Date: 07/02/17 Principal diagnosis: hematemesis s/p EGD findings of severe reflux esophagitis segment of barretts. Hemoglobin 13.2. Per nursing no episodes of hematemesis hematochezia or melena. Tolerating advanced diet with assist. Objective - Vital Signs Vital signs: Vital Signs Temp 97.8 F 07/02/17 07:00 Pulse 94 07/02/17 11:08 Resp 18 07/02/17 07:00 BP 142/89 07/02/17 07:00 Pulse Ox 90 L 07/02/17 10:10 Intake & Output 07/01/17 07/02/17 07/02/17 18:59 06:59 18:59 Intake Total 1290 1370 1060 Output Total 1202 2400 1500 Balance 88 -1030 -440 Weight 86.5 kg Intake: IV 200 Intake, IV Titration 850 1250 700 Amount Ampicillin-Sulbactam 1.5 100 gm In Sodium Chloride 0.9 % 50 ml @ 100 mls/hr IVPB Q8HR [facility] Rx#:[id number] Levofloxacin 750Mg-D5w 150 Pmx 750 mg In Dextrose/ Water 1 150ml.bag @ 100 mls/hr IVPB Q24H [facility] Rx#: [id number] Sodium Chloride 0.9% 1, 700 1250 000 ml @ 100 mls/hr IV . Q10H [facility] Rx#:[id number] Sodium Chloride 0.9% 1, 600 000 ml As IV [facility] Rx#:[id number] Oral 240 120 360 Output: Urine 1200 2400 1500 Stool 2 Other: Voiding Method Urinal Urinal Urinal Diaper Diaper Incontinent Incontinent # Voids 2 2 2 - Constitutional General appearance: Present: average body habitus - EENT Eyes: Present: normal appearance - Neck Neck: Present: normal ROM - Respiratory Details: slight diminishment in bilateral bases Respiratory: bilateral: CTA - Cardiovascular Rhythm: regular - Gastrointestinal Gastrointestinal Comment(s): nontender General gastrointestinal: Present: soft - Psychiatric Psychiatric Comment(s): cerebral palsy - Labs CBC & Chem 7: 07/02/17 07:11 07/02/17 07:11 Labs: Abnormal Lab Results - Last 24 Hours (Table) 07/02/17 07/02/17 Range/Units 07:11 07:11 WBC 11.0 H (3.8-10.6) k/uL RBC 4.29 L (4.30-5.90) m/uL Hct 38.8 L (39.0-53.0) % BUN 6 L (9-20) mg/dL Creatinine 0.45 L (0.66-1.25) mg/dL Total Protein 5.3 L (6.3-8.2) g/dL Albumin 3.0 L (3.5-5.0) g/dL Microbiology - Last 24 Hours (Table) 06/27/17 03:24 Blood Culture - Preliminary Blood No Growth after 120 hours Assessment and Plan (1) GI bleed Narrative/Plan: 62-year-old male admitted with shortness of breath pneumonia with hematemesis 2 with mild component of acute blood loss anemia s/p EGD with findings of severe reflux esophagitis and segment of Denson's esophagus. Current Visit: Yes Status: Acute Code(s): K92.2 - GASTROINTESTINAL HEMORRHAGE, UNSPECIFIED SNOMED Code(s): 11931580 (2) Anemia Current Visit: Yes Status: Acute Code(s): D64.9 - ANEMIA, UNSPECIFIED SNOMED Code(s): 325267184 (3) Cerebral palsy Current Visit: Yes Status: Chronic Code(s): G80.9 - CEREBRAL PALSY, UNSPECIFIED SNOMED Code(s): 491601533 (4) Reflux esophagitis Current Visit: Yes Status: Acute Code(s): K21.0 - GASTRO-ESOPHAGEAL REFLUX DISEASE WITH ESOPHAGITIS SNOMED Code(s): 863317814 (5) Barretts esophagus Current Visit: Yes Status: Acute Code(s): K22.70 - DENSON'S ESOPHAGUS WITHOUT DYSPLASIA SNOMED Code(s): 533884691 Plan: 1. Continue Protonix 40 mg daily. 2. RTO 3-4 weeks reevaluation. 3. Diet as tolerated. Assessment and plan of care discussed with Dr. Marshall
[2017-07-02] MEDS: lamoTRIgine 100 MG TAB PO SCH (20:15)
[2017-07-02] MEDS: LACTATED RINGERS 1,000 ML IV SCH (23:02)
--- NOTE | 2017-07-02 23:27 | PN ---
PROGRESS NOTE CHIEF COMPLAINT: Re-evaluation. HISTORY OF PRESENT ILLNESS: This 62-year-old gentleman was admitted to the hospital with some fever and suggestive of an pneumonia. The patient also had 2 episodes of vomiting. One episode was with hematemesis. The patient did undergo an EGD yesterday. On EGD the patient was noted to have rather significant esophagitis; Lopez's esophagus also. The patient has not had any more episodes of the same. He has been eating better. REVIEW OF SYSTEMS: NEURO: Denies any headaches, dizziness. PSYCH: No anxiety. He is cooperative. He does have a history of mental retardation. CARDIAC: Denies chest pain. RESPIRATORY: Denies shortness of breath. Has minimal cough. GI: No reported nausea, vomiting, abdominal pain. No bowel movements. : No symptoms. Has incontinence. CONSTITUTIONAL: No fever or chills. PHYSICAL EXAMINATION: Pleasant 62-year-old with known history of mental retardation. The patient's vital signs reveal temperature 97.8, pulse 101, respirations 18, blood pressure 142/89, pulse ox 98% on room air. HEENT: Normocephalic. NECK: No JVD. CHEST: Clear to auscultation. CARDIAC: Normal S1, S2 with no gallops. ABDOMEN: Soft. Bowel sounds active. Extremities reveal no edema. Neurologically, patient has baseline mental status. He moves his extremities. LABORATORY ASSESSMENT: CBC which revealed a hemoglobin 13.2. Electrolytes are normal with a potassium of 3.5. ASSESSMENT: 1. Pneumonia. 2. Upper gastrointestinal bleed. 3. Peptic ulcer disease. 4. Mental retardation. 5. Degenerative arthritis. PLAN: The patient at present is stable. Continue present medical regimen. Potential discharge home tomorrow if he remains afebrile. Will add a small dose of beta summer. Prognosis remains guarded. MMODL / IJN: [id number] /
[2017-07-03] MEDS: METOPROLOL SUCCINATE (ER) 25 MG TAB.ER.24H PO SCH ×2 (06:05→09:09)
[2017-07-03] MEDS: IPRATROPIUM-ALBUTEROL 3 ML NEB INHALATION SCH ×4 (08:38→19:32)
[2017-07-03] MEDS: LISINOPRIL 10 MG TAB PO SCH (09:08)
[2017-07-03] MEDS: ARIPiprazole 5 MG TAB PO SCH (09:08)
[2017-07-03] MEDS: AMPICILLIN-SULBACTAM 1.5 GM in SODIUM CHLORIDE 0.9% 50 ML IVPB SCH ×2 (09:08→17:51)
[2017-07-03] MEDS: PANTOPRAZOLE 40 MG/10 ML VIAL IVP SCH (09:08)
[2017-07-03] MEDS: busPIRone HCl 10 MG TAB PO SCH ×2 (09:09→21:18)
[2017-07-03] MEDS: IMIPRAMINE 10 MG TAB PO SCH (11:49)
[2017-07-03 13:32] VITALS: BMI 31.7
[2017-07-03] MEDS: LACTATED RINGERS 1,000 ML IV SCH (13:57)
[2017-07-03] MEDS: PANTOPRAZOLE 40 MG TABLET PO SCH (17:58)
[2017-07-03] MEDS: lamoTRIgine 100 MG TAB PO SCH (21:19)
[2017-07-04] MEDS: AMPICILLIN-SULBACTAM 1.5 GM in SODIUM CHLORIDE 0.9% 50 ML IVPB SCH ×3 (00:56→15:56)
[2017-07-04] MEDS: LISINOPRIL 10 MG TAB PO SCH (07:39)
[2017-07-04] MEDS: ARIPiprazole 5 MG TAB PO SCH (07:39)
[2017-07-04] MEDS: PANTOPRAZOLE 40 MG TABLET PO SCH ×2 (07:39→18:08)
[2017-07-04] MEDS: busPIRone HCl 10 MG TAB PO SCH (07:39)
[2017-07-04] MEDS: METOPROLOL SUCCINATE (ER) 25 MG TAB.ER.24H PO SCH (07:39)
[2017-07-04] MEDS: IMIPRAMINE 10 MG TAB PO SCH (07:39)
--- NOTE | 2017-07-04 07:50 | PN ---
PROGRESS NOTE CHIEF COMPLAINT: Re-evaluation. HISTORY OF PRESENT ILLNESS: A 62-year-old gentleman admitted to the hospital with fever and infiltrates. The patient also has had some vomiting and also hematemesis. An EGD revealed significant esophagitis and Lopez's esophagus. The patient is doing better. The patient suspect may have aspiration pneumonia and the patient is on antibiotic. He is actually feeling better and doing better. He needs assistance with feeding. He has been afebrile. REVIEW OF SYSTEMS: NEURO: No headaches. PSYCH: Cooperative. CARDIAC: Denies chest pain. RESPIRATORY: Some cough. GI: No reported nausea, vomiting, abdominal pain. No diarrhea. : No reported symptoms of symptoms. Patient is incontinent. EXTREMITIES: Chronic pain right knee. PHYSICAL EXAMINATION: This pleasant gentleman in no distress. Temperature 97.1, pulse 98, respirations 18, blood pressure 130/86, pulse ox 92% 2 L. HEENT: Normocephalic. NECK: Decreased range of motion. CHEST: Clear to auscultation. CARDIAC: Distant heart sounds S1, S2 with no gallop. Systolic murmur 2/6 left sternal border. ABDOMEN: Soft. Bowel sounds present. EXTREMITIES: No edema. NEUROLOGIC: Awake, alert, oriented to person. Moves extremities with his limitations. LABORATORY ASSESSMENT: None new. ASSESSMENT: 1. Pneumonia, probably aspiration. 2. Esophagitis with an episode of hematemesis. 3. Mental retardation. 4. History of seizure disorder. 5. Hypertension. 6. Degenerative arthritis. PLAN: The patient's condition is adequately stabilized. We will continue present medical regimen. Potential discharge back home tomorrow. MMYAMIL / ABELINO: [id number] /
[2017-07-04] MEDS: IPRATROPIUM-ALBUTEROL 3 ML NEB INHALATION SCH ×3 (08:23→16:19)
[2017-07-04 14:43] VITALS: BP 117/72; RESP 18; TEMP 98.9
[2017-07-04 16:22] VITALS: PULSE 82
== END 2017-07-04 19:33 | disposition home health service (06) | DRG 177 ==
LOC: EC 02:57 → EEVIPCON 03:24 → 6SEL 03:24 → 3SUR 06-29 09:48 → 5MS5E 06-30 17:51
PROVIDERS: ADMIT Internal Medicine; ATTEND Internal Medicine
PROC: 0DB58ZX Excision of Esophagus, Via Natural or Artificial Opening Endoscopic, Diagnostic (ICD-10-PCS; principal; 2017-07-01 13:50)
DX: J69.0 Pneumonitis due to inhalation of food and vomit (principal); J96.01 Acute respiratory failure with hypoxia; K92.0 Hematemesis; D62 Acute posthemorrhagic anemia; E87.1 Hypo-osmolality and hyponatremia; E83.42 Hypomagnesemia; G80.9 Cerebral palsy, unspecified; E87.6 Hypokalemia; F79 Unspecified intellectual disabilities; G40.909 Epilepsy, unspecified, not intractable, without status epilepticus; I10 Essential (primary) hypertension; K21.0 Gastro-esophageal reflux disease with esophagitis; K22.70 Barrett's esophagus without dysplasia; K27.9 Peptic ulcer, site unspecified, unspecified as acute or chronic, without hemorrhage or perforation; K44.9 Diaphragmatic hernia without obstruction or gangrene; M19.90 Unspecified osteoarthritis, unspecified site; Z79.899 Other long term (current) drug therapy; Z80.51 Family history of malignant neoplasm of kidney; Z82.49 Family history of ischemic heart disease and other diseases of the circulatory system; Z82.5 Family history of asthma and other chronic lower respiratory diseases
CPT/HCPCS: 36415; 43239; 71045; 71046; 74018; 80048; 80053; 81003; 82550; 82553; 83735; 83880; 84484; 85025; 85027; 85610; 85730; 87040; 87502; 88305; 93005; 94640; 94660; 94760; 96365; 96366; 96367; 96375; 99291

== ENCOUNTER 2018-09-23 19:30 | Inpatient (IN) | payer MEDICARE, OTHER ==
[2018-09-23] MEDS ORDERED: DEXAMETHASONE SOD PHOSPHATE 10 MG/ML 1 ML VIAL IV STA (19:44)
[2018-09-23] MEDS ORDERED: IPRATROPIUM-ALBUTEROL 3 ML NEB INHALATION STA (19:47)
[2018-09-23] MEDS ORDERED: ALBUTEROL NEBULIZED 2.5 MG/3 ML INHALATION STA (19:47)
--- NOTE | 2018-09-23 19:59 | ED ---
General Adult HPI - General Chief complaint: Shortness of Breath Stated complaint: SOB Time Seen by Provider: 09/23/18 19:39 Source: patient, RN notes reviewed, old records reviewed, Caregiver Mode of arrival: wheelchair Limitations: language barrier - History of Present Illness Initial comments: 63-year-old male history of cerebral palsy presents from [facility] with respiratory distress. Patient has developed dyspnea and wheezing over the past 24 hours. No previous history of asthma or COPD. Nonsmoker. No history of heart failure. No complaints of chest pain. No history of fever. He has had a mild cough. According to staff he has had positive sick contacts with URI symptoms and cough. No reported vomiting or diarrhea. - Related Data Home Medications Medication Instructions Recorded Confirmed ARIPiprazole [Abilify] 5 mg PO HS@2100 06/27/17 09/23/18 Acetaminophen/Diphenhydramine 1 tab PO HS 06/27/17 09/23/18 [Tylenol PM 500-25mg] Imipramine [Tofranil] 10 mg PO HS 06/27/17 09/23/18 Lisinopril [Zestril] 10 mg PO DAILY 06/27/17 09/23/18 Multivitamin,Therapeutic [Thera] 1 tab PO DAILY 06/27/17 09/23/18 busPIRone HCL 30 mg PO BID 06/27/17 09/23/18 lamoTRIgine [LaMICtal] 150 mg PO BID 06/27/17 09/23/18 metroNIDAZOLE 0.75% CREAM 1 applicate TOPICAL DAILY 06/27/17 09/23/18 [Metrocream] Baclofen [Lioresal] 10 mg PO HS 09/23/18 09/23/18 Ketoconazole 2% Cream [Nizoral 2%] 1 applic TOPICAL BID PRN 09/23/18 09/23/18 Pantoprazole [Protonix] 40 mg PO DAILY 09/23/18 09/23/18 Previous Rx's Medication Instructions Recorded Metoprolol Succinate (ER) [Toprol 25 mg PO DAILY #30 tab.er.24h 07/04/17 XL] Allergies Allergy/AdvReac Type Severity Reaction Status Date / Time No Known Allergies Allergy Verified 09/23/18 20:12 Review of Systems ROS Statement: Those systems with pertinent positive or pertinent negative responses have been documented in the HPI. ROS Other: All systems not noted in ROS Statement are negative. Past Medical History Past Medical History: Hypertension, Seizure Disorder Additional Past Medical History / Comment(s): Cerebral palsy History of Any Multi-Drug Resistant Organisms: None Reported Past Surgical History: No Surgical Hx Reported Past Psychological History: No Psychological Hx Reported Smoking Status: Unknown if ever smoked Past Alcohol Use History: None Reported Past Drug Use History: None Reported General Exam Limitations: language barrier General appearance: alert, in distress Head exam: Present: atraumatic, normocephalic Eye exam: Present: normal appearance, PERRL ENT exam: Present: mucous membranes dry Neck exam: Present: normal inspection. Absent: tenderness, meningismus Respiratory exam: Present: respiratory distress (mild), wheezes, decreased breath sounds. Absent: stridor Cardiovascular Exam: Present: normal rhythm, tachycardia GI/Abdominal exam: Present: soft. Absent: distended, tenderness Extremities exam: Present: normal inspection, normal capillary refill. Absent: pedal edema, calf tenderness Neurological exam: Present: alert Psychiatric exam: Present: normal affect, normal mood Skin exam: Present: warm, dry, intact. Absent: cyanosis, diaphoretic Course Vital Signs 09/23/18 09/23/18 09/23/18 19:32 19:56 20:14 Temperature 98.5 F Pulse Rate 108 H 109 H 113 H Respiratory 20 Rate Blood Pressure 127/73 O2 Sat by Pulse 93 L Oximetry EKG Findings - EKG Comments: EKG Findings:: EKG: Sinus tachycardia with frequent PVC, incomplete right bundle branch block, rate of 116, MO interval 170, QRS duration 98, QTC 442, no ST segment elevation, poor baseline secondary to tremor. Previous EKG in June 2017 shows incomplete right bundle-branch block and sinus tachycardia overall similar. Medical Decision Making - Medical Decision Making 61-year-old male history of cough and dyspnea. No reported fever. Patient does have history of recurrent pneumonia. Chest x-ray reveals infiltrates bilaterally. He has white blood cell count of 11.0 which is probably neutrophils at 9.4. He has stable hemoglobin. Lactic acid 2.0. Patient is initiated on azithromycin and ceftriaxone in the emergency department. He will be admitted for treatment of community-acquired pneumonia. Case is discussed with Dr. Valadez who will admit. - Lab Data Result diagrams: 09/23/18 19:52 09/23/18 19:52 Lab Results 09/23/18 09/23/18 09/23/18 Range/Units 19:52 19:52 19:52 WBC 11.0 H (3.8-10.6) k/uL RBC 5.07 (4.30-5.90) m/uL Hgb 15.4 (13.0-17.5) gm/dL Hct 46.1 (39.0-53.0) % MCV 90.9 (80.0-100.0) fL MCH 30.4 (25.0-35.0) pg MCHC 33.4 (31.0-37.0) g/dL RDW 14.1 (11.5-15.5) % Plt Count 269 (150-450) k/uL Neutrophils % 85 % Lymphocytes % 6 % Monocytes % 6 % Eosinophils % 1 % Basophils % 0 % Neutrophils # 9.4 H (1.3-7.7) k/uL Lymphocytes # 0.7 L (1.0-4.8) k/uL Monocytes # 0.7 (0-1.0) k/uL Eosinophils # 0.1 (0-0.7) k/uL Basophils # 0.0 (0-0.2) k/uL PT 10.5 (9.0-12.0) sec INR 1.0 (<1.2) APTT 25.6 (22.0-30.0) sec Sodium 133 L (137-145) mmol/L Potassium 4.3 (3.5-5.1) mmol/L Chloride 100 (98-107) mmol/L Carbon Dioxide 22 (22-30) mmol/L Anion Gap 11 mmol/L BUN 15 (9-20) mg/dL Creatinine 0.50 L (0.66-1.25) mg/dL Est GFR (CKD-EPI)AfAm >90 (>60 ml/min/1.73 sqM) Est GFR (CKD-EPI)NonAf >90 (>60 ml/min/1.73 sqM) Glucose 121 H (74-99) mg/dL Plasma Lactic Acid Sj (0.7-2.0) mmol/L Calcium 8.6 (8.4-10.2) mg/dL Magnesium 1.6 (1.6-2.3) mg/dL Total Bilirubin 0.7 (0.2-1.3) mg/dL AST 24 (17-59) U/L ALT 11 L (21-72) U/L Alkaline Phosphatase 97 (38-126) U/L Troponin I (0.000-0.034) ng/mL Total Protein 6.7 (6.3-8.2) g/dL Albumin 4.0 (3.5-5.0) g/dL 09/23/18 09/23/18 Range/Units 19:52 19:52 WBC (3.8-10.6) k/uL RBC (4.30-5.90) m/uL Hgb (13.0-17.5) gm/dL Hct (39.0-53.0) % MCV (80.0-100.0) fL MCH (25.0-35.0) pg MCHC (31.0-37.0) g/dL RDW (11.5-15.5) % Plt Count (150-450) k/uL Neutrophils % % Lymphocytes % % Monocytes % % Eosinophils % % Basophils % % Neutrophils # (1.3-7.7) k/uL Lymphocytes # (1.0-4.8) k/uL Monocytes # (0-1.0) k/uL Eosinophils # (0-0.7) k/uL Basophils # (0-0.2) k/uL PT (9.0-12.0) sec INR (<1.2) APTT (22.0-30.0) sec Sodium (137-145) mmol/L Potassium (3.5-5.1) mmol/L Chloride (98-107) mmol/L Carbon Dioxide (22-30) mmol/L Anion Gap mmol/L BUN (9-20) mg/dL Creatinine (0.66-1.25) mg/dL Est GFR (CKD-EPI)AfAm (>60 ml/min/1.73 sqM) Est GFR (CKD-EPI)NonAf (>60 ml/min/1.73 sqM) Glucose (74-99) mg/dL Plasma Lactic Acid Sj 2.0 (0.7-2.0) mmol/L Calcium (8.4-10.2) mg/dL Magnesium (1.6-2.3) mg/dL Total Bilirubin (0.2-1.3) mg/dL AST (17-59) U/L ALT (21-72) U/L Alkaline Phosphatase (38-126) U/L Troponin I <0.012 (0.000-0.034) ng/mL Total Protein (6.3-8.2) g/dL Albumin (3.5-5.0) g/dL Disposition Clinical Impression: Community acquired pneumonia, Cerebral palsy Disposition: [facility] Condition: Stable Is patient prescribed a controlled substance at d/c from ED?: No Referrals: Willy Woodson MD [Primary Care Provider] - 1-2 days Decision to Admit Reason: Admit from EC Decision Date: 09/23/18 Decision Time: 20:58
--- NOTE | 2018-09-23 20:02 | XR ---
EXAMINATION TYPE: XR chest 1V portable DATE OF EXAM: 09/23/2018 COMPARISON: 06/29/2017 HISTORY: Difficulty breathing TECHNIQUE: Single frontal view of the chest is obtained. FINDINGS: There is coarsening of interstitial markings. There is plate fixing the left humerus. Ther e is mild pulmonary congestion. There are chest leads. There is a poor inspiration. There is signific ant arthritic disease in both shoulder joints. IMPRESSION: There is some infiltrate and atelectasis mainly at the right lung base that is increased compared to last exam. Mild congestion without overt heart failure.
[2018-09-23 20:03] LABS: Basophils % (A) 0 %; Eosinophils # (A) 0.1 k/uL (0-0.7); Eosinophils % (A) 1 %; HCT 46.1 % (39.0-53.0); HGB 15.4 gm/dL (13.0-17.5); Lymphocytes # (A) 0.7 k/uL (1.0-4.8); Lymphocytes % (A) 6 %; MCH 30.4 pg (25.0-35.0); MCHC 33.4 g/dL (31.0-37.0); MCV 90.9 fL (80.0-100.0); Monocytes # (A) 0.7 k/uL (0-1.0); Monocytes % (A) 6 %; Neutrophils # (A) 9.4 k/uL (1.3-7.7); Neutrophils % (A) 85 %; Platelet Count 269 k/uL (150-450); RBC 5.07 m/uL (4.30-5.90); RDW 14.1 % (11.5-15.5)
[2018-09-23] MEDS ORDERED: cefTRIAXone IN SWFI 1,000 MG/10 ML SYRINGE IVP STA (20:03)
[2018-09-23] MEDS ORDERED: AZITHROMYCIN 500 MG in SODIUM CHLORIDE 0.9% 250 ML IVPB STA (20:03)
[2018-09-23 20:11] LABS: Partial Thromboplastin Time 25.6 sec (22.0-30.0); Prothrombin Time 10.5 sec (9.0-12.0)
[2018-09-23 20:14] LABS: ALT 11 U/L (21-72); AST 24 U/L (17-59); African American GFR (CKD) >90 (>60 ml/min/1.73 sqM); Alkaline Phosphatase 97 U/L (38-126); Anion Gap 11 mmol/L; Blood Urea Nitrogen 15 mg/dL (9-20); Calcium 8.6 mg/dL (8.4-10.2); Carbon Dioxide 22 mmol/L (22-30); Chloride 100 mmol/L (98-107); Glucose 121 mg/dL (74-99); Magnesium 1.6 mg/dL (1.6-2.3); Potassium 4.3 mmol/L (3.5-5.1); Sodium 133 mmol/L (137-145); Total Bilirubin 0.7 mg/dL (0.2-1.3); Total Protein 6.7 g/dL (6.3-8.2)
[2018-09-23] MEDS ORDERED: CLOTRIMAZOLE 1% CREAM 15 GM TUBE TOPICAL PRN (20:54)
[2018-09-23] MEDS ORDERED: IPRATROPIUM-ALBUTEROL 3 ML NEB INHALATION PRN (20:55)
[2018-09-23] MEDS: ACETAMINOPHEN TAB 500 MG TAB PO SCH (22:06)
[2018-09-23] MEDS: lamoTRIgine 100 MG TAB PO SCH (22:07)
[2018-09-23] MEDS: IMIPRAMINE 10 MG TAB PO SCH (22:08)
[2018-09-23] MEDS: busPIRone HCl 10 MG TAB PO SCH (22:08)
[2018-09-23] MEDS: BACLOFEN 10 MG TAB PO SCH (22:08)
[2018-09-23] MEDS: SODIUM CHLORIDE 0.9% 1,000 ML IV SCH (22:08)
[2018-09-23] MEDS: ARIPiprazole 5 MG TAB PO SCH (22:08)
--- NOTE | 2018-09-23 22:14 | P.HPIM ---
History of Present Illness H&P Date: 09/23/18 Chief Complaint: coughing and hypoxemia 63 year old male with developmental delays, cerebral cerebral palsy, history of seizures. Hypertension Patient is a resident of a detention, he has a guardian. Who provided all the history during the interview due to patient developmental delay. It is reported that for one day at the detention he was having some wheezing and coughing he was not being himself. No reported fevers or chills. He had poor appetite. Multiple sick contacts at the detention with upper respiratory infection, his reports his symptoms are runny nose coughing and wheezing and hypoxemia down to the 80s for that he was brought to the hospital for evaluation. Up until yesterday he was doing well he even saw his PCP yesterday with no changes in his medications. In the ED x-ray showed pulmonary infiltrates suggestive of pneumonia for which she was admitted for treatment with antibiotics Review of Systems ROS unobtainable: due to mental status Past Medical History Past Medical History: Hypertension, Seizure Disorder Additional Past Medical History / Comment(s): Cerebral palsy History of Any Multi-Drug Resistant Organisms: None Reported Past Surgical History: No Surgical Hx Reported Past Psychological History: No Psychological Hx Reported Smoking Status: Unknown if ever smoked Past Alcohol Use History: None Reported Past Drug Use History: None Reported - Past Family History family Additional Family Medical History / Comment(s): heart disease runs in the family Medications and Allergies Home Medications Medication Instructions Recorded Confirmed Type ARIPiprazole [Abilify] 5 mg PO HS@2100 06/27/17 09/23/18 History Acetaminophen/Diphenhydramine 1 tab PO HS 06/27/17 09/23/18 History [Tylenol PM 500-25mg] Imipramine [Tofranil] 10 mg PO HS 06/27/17 09/23/18 History Lisinopril [Zestril] 10 mg PO DAILY 06/27/17 09/23/18 History Multivitamin,Therapeutic [Thera] 1 tab PO DAILY 06/27/17 09/23/18 History busPIRone HCL 30 mg PO BID 06/27/17 09/23/18 History lamoTRIgine [LaMICtal] 150 mg PO BID 06/27/17 09/23/18 History metroNIDAZOLE 0.75% CREAM 1 applicate TOPICAL DAILY 06/27/17 09/23/18 History [Metrocream] Metoprolol Succinate (ER) [Toprol 25 mg PO DAILY #30 tab.er.24h 07/04/17 09/23/18 Rx XL] Baclofen [Lioresal] 10 mg PO HS 09/23/18 09/23/18 History Ketoconazole 2% Cream [Nizoral 2%] 1 applic TOPICAL BID PRN 09/23/18 09/23/18 History Pantoprazole [Protonix] 40 mg PO DAILY 09/23/18 09/23/18 History Allergies Allergy/AdvReac Type Severity Reaction Status Date / Time No Known Allergies Allergy Verified 09/23/18 20:12 Physical Exam Vitals: Vital Signs Temp Pulse Resp BP Pulse Ox 09/23/18 20:14 113 H 09/23/18 19:56 109 H 09/23/18 19:32 98.5 F 108 H 20 127/73 93 L Intake and Output 09/23/18 09/23/18 09/23/18 06:59 14:59 22:59 Other: Weight 84.822 kg Constitutional: No acute distress, patient doesn't say anything except coffee normally he is talkative per the guardian. He is cooperative with exam valve. Eyes: Anicteric sclerae, moist conjunctiva, no lid-lag Pupils equal round reactive to light ENMT: NC/AT, Oropharynx clear, no erythema, or exudates Neck: Patient has chronic neck spasm with some contractures of his neck due to his history of cerebral palsy, no masses, or JVD No carotid bruits No thyromegaly Lungs: Prolonged expiratory phase with end expiratory wheezing, decreased breath sounds at lung bases bilaterally with some rhonchi Clear to percussion Normal respiratory effort, no accessory muscle use Cardiovascular: Heart regular in rate and rhythm, No murmurs, gallops, or rubs No peripheral edema Abdominal: Soft, increased tone of percussion Nontender, no guarding, rebound or rigidity Abdomen moving with respiration Normoactive bowel sounds No hepatomegaly, No splenomegaly No palpable mass No abdominal wall hernia noted Skin: Normal temperature, tone, texture, turgor No induration No subcutaneous nodules No rash, lesions No ulcers Extremities: No digital cyanosis No clubbing Pedal pulses intact and symmetrical Radial pulses intact and symmetrical No calf tenderness Psychiatric: Alert and oriented to person Cerebral palsy and mental delays Neuro patient moving all 4 extremities could not cooperate with Muscles Strength exam , could not exam for light touch sensation due to mental delays patient could not cooperate with CN exam Lymphatics: no palpable cervical or supraclavicular , or inguinal lymph nodes Results CBC & Chem 7: 09/23/18 19:52 09/23/18 19:52 Labs: Abnormal Lab Results - Last 24 Hours (Table) 09/23/18 09/23/18 Range/Units 19:52 19:52 WBC 11.0 H (3.8-10.6) k/uL Neutrophils # 9.4 H (1.3-7.7) k/uL Lymphocytes # 0.7 L (1.0-4.8) k/uL Sodium 133 L (137-145) mmol/L Creatinine 0.50 L (0.66-1.25) mg/dL Glucose 121 H (74-99) mg/dL ALT 11 L (21-72) U/L Assessment and Plan Assessment: 63-year-old male with history of cerebral palsy history of seizures, developmental delays. Admitted as inpatient with anticipated stay more than 48 hours for acute hypoxic respiratory failure secondary to community-acquired pneumonia . Plan: acute hypoxic respiratory failure secondary to community acquired pneumonia IVF hydration rocephine azithromycin tylenol PRN follow up cultures supplemental oxygen as needed chronic conditions developmental delays due to cerebral palsy history of seizure hypertension muscle spasms continue home meds aspiration precautions with meals fall and seizure precautions DVT PPX heparin sc tid Surrogate decision-maker: Sun guardian CODE STATUS: no code Discussed with: Patient, ER, RN Anticipated discharge: 48-[address]: back to detention A total of 60 minutes was spent on the care of this complex patient more than 50% of the time was spent in counseling and care coordination.
[2018-09-24] MEDS: methylPREDNISolone SOD SUCCI 125 MG/2 ML VIAL IV SCH ×3 (05:43→12:28)
[2018-09-24] MEDS: IPRATROPIUM-ALBUTEROL 3 ML NEB INHALATION SCH ×4 (07:16→20:39)
[2018-09-24 07:37] LABS: Glucose,Whole Blood 169 mg/dL (75-99)
[2018-09-24] MEDS: METOPROLOL SUCCINATE (ER) 25 MG TAB.ER.24H PO SCH (07:54)
[2018-09-24] MEDS: busPIRone HCl 10 MG TAB PO SCH ×2 (07:54→21:16)
[2018-09-24] MEDS: PANTOPRAZOLE 40 MG TABLET PO SCH (07:54)
[2018-09-24] MEDS: LISINOPRIL 10 MG TAB PO SCH (07:54)
[2018-09-24] MEDS: lamoTRIgine 100 MG TAB PO SCH ×2 (07:55→21:16)
[2018-09-24] MEDS: AZITHROMYCIN 500 MG TAB PO SCH (07:55)
[2018-09-24] MEDS: INSULIN ASPART (NovoLOG) 100 UNIT/ML VIAL SQ SCH ×4 (07:56→21:22)
[2018-09-24] MEDS: SODIUM CHLORIDE 0.9% 1,000 ML IV SCH (10:19)
[2018-09-24 12:03] LABS: Glucose,Whole Blood 153 mg/dL (75-99)
--- NOTE | 2018-09-24 16:18 | P.PN ---
Subjective Progress Note Date: 09/24/18 (Delayed charting patient seen at approximately 11 AM) Principal diagnosis: Hypoxia and cough Patient is a 63-year-old male with a history of developmental delay secondary to his cerebral palsy, hypertension, and seizure disorder who presented to the hospital from his assisted secondary to hypoxia. In the ER he underwent an extensive evaluation. On arrival his son be slightly tachycardic with a pulse of 108, O2 sat was 93% on room air. Initial laboratory analysis showed an elevated white blood cell count of 11, low sodium at 133, and chest x-ray with infiltrate at the right lung base. He was admitted for treatment with antibiotics, fluids, and steroids. Patient seen and examined at bedside. He states that his cough is better and shortness of breath is better. He denies any nausea. Has a hard time focusing because he wants chocolate milk. Guardian had to leave to go to work. Objective - Vital Signs Vital signs: Vital Signs Temp 98.3 F 09/24/18 15:00 Pulse 111 H 09/24/18 15:00 Resp 18 09/24/18 15:00 BP 109/65 09/24/18 15:00 Pulse Ox 93 L 09/24/18 15:00 Intake & Output 09/23/18 09/24/18 09/24/18 18:59 06:59 18:59 Intake Total 50 Output Total 350 350 Balance -300 -350 Weight 84.822 kg Intake: Oral 50 Output: Urine 350 350 Other: Voiding Method Urinal - Exam General: Ill Appearing, no distress, appears younger than stated age Derm: warm, dry Head: atraumatic, normocephalic, symmetric Eyes: EOMI, no lid lag, anicteric sclera Mouth: no lip lesion, mucus membranes moist, + upper airway wheeze Cardiovascular: S1S2 reg, no murmur, positive posterior tibial pulse bilateral, Lungs: course bs bilateral, no rhonchi, no rales , no accessory muscle use Abdominal: soft, nontender to palpation, no guarding, no appreciable organomegaly Ext: no gross muscle atrophy, no edema, + contractures Neuro: CN II-XI grossly intact, no focal neuro deficits Psych: Alert, oriented, appropriate affect - Labs CBC & Chem 7: 09/23/18 19:52 09/23/18 19:52 Labs: Abnormal Lab Results - Last 24 Hours (Table) 09/23/18 09/23/18 09/24/18 Range/Units 19:52 19:52 07:06 WBC 11.0 H (3.8-10.6) k/uL Neutrophils # 9.4 H (1.3-7.7) k/uL Lymphocytes # 0.7 L (1.0-4.8) k/uL Sodium 133 L (137-145) mmol/L Creatinine 0.50 L (0.66-1.25) mg/dL Glucose 121 H (74-99) mg/dL POC Glucose (mg/dL) 169 H (75-99) mg/dL ALT 11 L (21-72) U/L 09/24/18 Range/Units 11:46 WBC (3.8-10.6) k/uL Neutrophils # (1.3-7.7) k/uL Lymphocytes # (1.0-4.8) k/uL Sodium (137-145) mmol/L Creatinine (0.66-1.25) mg/dL Glucose (74-99) mg/dL POC Glucose (mg/dL) 153 H (75-99) mg/dL ALT (21-72) U/L Assessment and Plan Assessment: Community-acquired pneumonia -Continue with Zithromax and Cefdinir -Follow chest x-ray until clear -Continue with bronchodilators -Transition steroids from IV to by mouth as patient does have some wheezing on exam -Pulmonary hygiene -Unable to obtain sputum culture -Aspiration precautions Acute hypoxic respiratory failure secondary to above -Wean O2 as able Hyponatremia, mild likely secondary to dehydration -IV fluids -Repeat basic metabolic profile in a.m. Developmental delay due to cerebral palsy -Supportive care -Continue with baclofen History of seizure disorder -Continue with Lamictal Hypertension, controlled -Continue with lisinopril and metoprolol -Follow blood pressures DVT prophylaxis: SCDs Discussed with: Nursing, guardian not present Anticipated discharge: in AM Anticipated discharge place: Return to assisted A total of 35 minutes was spent on the care of this complex patient more than 50% of the time was spent in counseling and care coordination.
[2018-09-24 16:56] LABS: Glucose,Whole Blood 161 mg/dL (75-99)
[2018-09-24 20:12] LABS: Glucose,Whole Blood 181 mg/dL (75-99)
[2018-09-24] MEDS: diphenhydrAMINE 25 MG CAP PO SCH (21:16)
[2018-09-24] MEDS: ARIPiprazole 5 MG TAB PO SCH (21:16)
[2018-09-24] MEDS: BACLOFEN 10 MG TAB PO SCH (21:16)
[2018-09-24] MEDS: IMIPRAMINE 10 MG TAB PO SCH (21:16)
[2018-09-24] MEDS: ACETAMINOPHEN TAB 500 MG TAB PO SCH (21:17)
[2018-09-25] MEDS: SODIUM CHLORIDE 0.9% 1,000 ML IV SCH (02:27)
--- NOTE | 2018-09-25 06:42 | XR ---
EXAMINATION TYPE: XR chest 1V portable DATE OF EXAM: 09/25/2018 HISTORY: pneumonia. REFERENCE: Previous study dated 09/23/2018. FINDINGS: Heart size upper limits of normal. There is some bibasilar atelectasis. I suspect small eff usions. There is vascular congestion. I could not exclude subtle edema. IMPRESSION: 1. CHANGES SUGGESTIVE OF CONGESTIVE HEART FAILURE. 2. BIBASILAR AIRSPACE DISEASE.
[2018-09-25 06:56] LABS: HCT 43.7 % (39.0-53.0); HGB 14.3 gm/dL (13.0-17.5); MCH 30.3 pg (25.0-35.0); MCHC 32.8 g/dL (31.0-37.0); MCV 92.4 fL (80.0-100.0); Mean Platelet Volume 7.3; Platelet Count 246 k/uL (150-450); RBC 4.73 m/uL (4.30-5.90); RDW 15.2 % (11.5-15.5); WBC 21.1 k/uL (3.8-10.6)
[2018-09-25 07:06] LABS: African American GFR (CKD) >90 (>60 ml/min/1.73 sqM); Anion Gap 8 mmol/L; Blood Urea Nitrogen 12 mg/dL (9-20); Calcium 8.7 mg/dL (8.4-10.2); Carbon Dioxide 25 mmol/L (22-30); Chloride 111 mmol/L (98-107); Glucose 121 mg/dL (74-99); Potassium 3.9 mmol/L (3.5-5.1); Sodium 144 mmol/L (137-145)
[2018-09-25 07:20] LABS: Glucose,Whole Blood 118 mg/dL (75-99)
[2018-09-25] MEDS ORDERED: FUROSEMIDE 10 MG/ML 2 ML VIAL IV ONE (07:55)
[2018-09-25] MEDS: INSULIN ASPART (NovoLOG) 100 UNIT/ML VIAL SQ SCH ×4 (07:59→19:51)
[2018-09-25] MEDS: LISINOPRIL 10 MG TAB PO SCH (08:14)
[2018-09-25] MEDS: AZITHROMYCIN 500 MG TAB PO SCH (08:14)
[2018-09-25] MEDS: busPIRone HCl 10 MG TAB PO SCH ×2 (08:14→21:41)
[2018-09-25] MEDS: CEFDINIR 300 MG CAP PO SCH ×2 (08:14→21:40)
[2018-09-25] MEDS: lamoTRIgine 100 MG TAB PO SCH ×2 (08:14→21:40)
[2018-09-25] MEDS: METOPROLOL SUCCINATE (ER) 25 MG TAB.ER.24H PO SCH (08:14)
[2018-09-25] MEDS: PANTOPRAZOLE 40 MG TABLET PO SCH (08:14)
[2018-09-25] MEDS: IPRATROPIUM-ALBUTEROL 3 ML NEB INHALATION SCH ×4 (08:32→19:28)
[2018-09-25 11:52] LABS: Glucose,Whole Blood 116 mg/dL (75-99)
--- NOTE | 2018-09-25 14:03 | P.PN ---
Subjective Progress Note Date: 09/25/18 Principal diagnosis: Hypoxia and cough Patient is a 63-year-old male with a history of developmental delay secondary to his cerebral palsy, hypertension, and seizure disorder who presented to the hospital from his custodial secondary to hypoxia. In the ER he underwent an extensive evaluation. On arrival his son be slightly tachycardic with a pulse of 108, O2 sat was 93% on room air. Initial laboratory analysis showed an elevated white blood cell count of 11, low sodium at 133, and chest x-ray with infiltrate at the right lung base. He was admitted for treatme nt with antibiotics, fluids, and steroids. Repeat CXR on 09/25 shows some fluid overload and persistent infiltrate. WBC count elevated but may be due to steroids. Patient seen and examined at bedside. Stating that he doesn't want to go home. He is unable to tell me why, unable to tell me about breathing. Denies pain. D/W guardian over phone. Nursing present at bedside. Objective - Vital Signs Vital signs: Vital Signs Temp 98.2 F 09/25/18 07:00 Pulse 107 H 09/25/18 07:00 Resp 20 09/25/18 07:00 BP 150/84 09/25/18 07:00 Pulse Ox 93 L 09/25/18 07:00 Intake & Output 09/24/18 09/25/18 09/25/18 18:59 06:59 18:59 Intake Total 1250 Output Total 850 Balance -850 1250 Intake: Intake, IV Titration 1250 Amount Sodium Chloride 0.9% 1, 1200 000 ml @ 75 mls/hr IV . [id number] DINESH Rx#:[id number] cefTRIAXone 1 gm In 50 Sodium Chloride 0.9% 50 ml @ 100 mls/hr IVPB Q24HR DINESH Rx#:[id number] Output: Urine 850 Other: Voiding Method Urinal Urinal # Bowel Movements 1 - Exam General: Ill Appearing, no distress, appears younger than stated age Derm: warm, dry Head: atraumatic, normocephalic, symmetric back: kyphosis Mouth: no lip lesion, mucus membranes moist, + upper airway wheeze Cardiovascular: S1S2 reg, no murmur, positive posterior tibial pulse bilateral, Lungs: course bs bilateral, no rhonchi, no rales , no accessory muscle use Abdominal: soft, nontender to palpation, no guarding, no appreciable organomegaly Ext: no gross muscle atrophy, no edema, + contractures Neuro: CN II-XI grossly intact, no focal neuro deficits Psych: Alert, oriented, appropriate affect - Labs CBC & Chem 7: 09/25/18 06:03 09/25/18 06:03 Labs: Abnormal Lab Results - Last 24 Hours (Table) 09/24/18 09/24/18 09/25/18 Range/Units 16:48 20:11 06:03 WBC 21.1 H (3.8-10.6) k/uL Chloride (98-107) mmol/L Creatinine (0.66-1.25) mg/dL Glucose (74-99) mg/dL POC Glucose (mg/dL) 161 H 181 H (75-99) mg/dL 09/25/18 09/25/18 09/25/18 Range/Units 06:03 07:18 11:45 WBC (3.8-10.6) k/uL Chloride 111 H (98-107) mmol/L Creatinine 0.47 L (0.66-1.25) mg/dL Glucose 121 H (74-99) mg/dL POC Glucose (mg/dL) 118 H 116 H (75-99) mg/dL Microbiology - Last 24 Hours (Table) 09/23/18 20:02 Blood Culture - Preliminary Blood No Growth after 24 hours Assessment and Plan Assessment: Community-acquired pneumonia, failed observation status -Now with elevated WBC in combination with increased heart rate will monitor for 1 additional day for signs of sepsis. -Continue with Zithromax and Cefdinir -Follow chest x-ray until clear, increased fluid on todays exam- lasix X 1 -Continue with bronchodilators -off steroids -Pulmonary hygiene -Unable to obtain sputum culture -Aspiration precautions Developmental delay due to cerebral palsy -Supportive care -Continue with baclofen History of seizure disorder -Continue with Lamictal Hypertension, accelerated on AM vitals - ? due to anxiety, will monitor closely. -Continue with lisinopril and metoprolol -Follow blood pressures Hyponatremia, mild likely secondary to dehydration, resolved Acute hypoxic respiratory failure secondary to above, improved Patient seems to be feeling worse today as he is requesting to stay. Prior he had been asking to leave. Patient also noted to have an elevated white blood cell count and elevated heart rate compared to vitals taken yesterday. We will monitor 1 more night to ensure patient is responding well to therapy and not becoming septic. Chest x-ray from today he continued to show infiltrate as well as some pulmonary edema. We will proceed cautiously in this patient with developmental delay who has difficulty expressing his concerns. Discussed with guardian who is in agreement. Recommend inpatient status as patient has now failed to midnight as observation. DVT prophylaxis: SCDs Discussed with: Nursing, guardian Anticipated discharge: in AM Anticipated discharge place: Return to custodial A total of 35 minutes was spent on the care of this complex patient more than 50% of the time was spent in counseling and care coordination.
[2018-09-25 17:37] LABS: Glucose,Whole Blood 104 mg/dL (75-99)
[2018-09-25 19:51] LABS: Glucose,Whole Blood 108 mg/dL (75-99)
[2018-09-25] MEDS: IMIPRAMINE 10 MG TAB PO SCH (21:40)
[2018-09-25] MEDS: BACLOFEN 10 MG TAB PO SCH (21:40)
[2018-09-25] MEDS: ARIPiprazole 5 MG TAB PO SCH (21:41)
[2018-09-25] MEDS: diphenhydrAMINE 25 MG CAP PO SCH (21:41)
[2018-09-25] MEDS: ACETAMINOPHEN TAB 500 MG TAB PO SCH (21:41)
[2018-09-26 02:05] VITALS: RESP 16
--- NOTE | 2018-09-26 06:53 | XR ---
EXAMINATION TYPE: XR chest 1V portable DATE OF EXAM: 09/26/2018 HISTORY: pneumonia. REFERENCE: Previous study dated 09/25/2018. FINDINGS: Heart size upper limits of normal. There is atelectatic change present in the right lung base. There is improved aeration of the left blake ng base. A small crescent of air is noted at the level of the right hemidiaphragm. This may be second joni to atelectasis. There is colonic interposition on the right. No definite pleural fluid is seen. Note is made of severe degenerative change of both shoulders. IMPRESSION: CURVILINEAR LUCENCY AT THE LEVEL OF THE RIGHT HEMIDIAPHRAGM PATIENT IMPOSSIBLE TO EXCLUDE FREE AIR. A DEDICATED ABDOMINAL SERIES OF THE SUGGESTED.
[2018-09-26 07:17] LABS: Glucose,Whole Blood 94 mg/dL (75-99)
[2018-09-26] MEDS: INSULIN ASPART (NovoLOG) 100 UNIT/ML VIAL SQ SCH ×2 (07:19→13:06)
[2018-09-26 07:26] LABS: HGB 14.2 gm/dL (13.0-17.5); MCHC 33.8 g/dL (31.0-37.0); MCV 91.7 fL (80.0-100.0); Mean Platelet Volume 7.1; Platelet Count 250 k/uL (150-450); RBC 4.57 m/uL (4.30-5.90); RDW 14.4 % (11.5-15.5); WBC 9.8 k/uL (3.8-10.6)
[2018-09-26 07:46] LABS: African American GFR (CKD) >90 (>60 ml/min/1.73 sqM); Anion Gap 5 mmol/L; Blood Urea Nitrogen 15 mg/dL (9-20); Calcium 8.6 mg/dL (8.4-10.2); Carbon Dioxide 31 mmol/L (22-30); Chloride 110 mmol/L (98-107); Glucose 96 mg/dL (74-99); Potassium 3.7 mmol/L (3.5-5.1); Sodium 146 mmol/L (137-145)
--- NOTE | 2018-09-26 08:09 | XR ---
EXAMINATION TYPE: XR abdomen 2V , 3 VIEWS DATE OF EXAM ORDERED: 09/26/2018 HISTORY: shortness of breath, possible free air on CXR. COMPARISON: Previous study dated 06/28/2017. FINDINGS: There is colonic interposition on the right. There are nondistended loops of small and lar ge bowel throughout the abdomen. No free air is seen. There is no evidence of obstruction. Entire pel vis is not imaged on this examination. IMPRESSION: NO EVIDENCE OF FREE AIR. THIS TIME.
[2018-09-26] MEDS: IPRATROPIUM-ALBUTEROL 3 ML NEB INHALATION SCH ×2 (08:17→12:34)
--- NOTE | 2018-09-26 10:05 | P.DS ---
Providers Date of admission: 09/25/18 15:16 Expected date of discharge: 09/26/18 Attending physician: Sher Valadez MD Primary care physician: Willy Woodson Hospital Course: Discharge Diagnosis: Community-acquired pneumonia, failed outpatient treatment Acute toxic respiratory failure Hyponatremia, secondary to dehydration Developmental delay secondary to cerebral palsy History of seizure disorder Hypertension, accelerated on arrival Hospital Course: Patient is a 63-year-old male with a history of developmental delay secondary to his cerebral palsy, hypertension, and seizure disorder who presented to the hospital from his correction secondary to hypoxia. In the ER he underwent an extensive evaluation. On arrival his son be slightly tachycardic with a pulse of 108, O2 sat was 93% on room air. Initial laboratory analysis showed an elevated white blood cell count of 11, low sodium at 133, and chest x-ray with infiltrate at the right lung base. He was admitted for treatment with antibiotics, fluids, and steroids. Repeat CXR on 09/25 shows some fluid overload and persistent infiltrate. WBC count elevated but may be due to steroids. He is given 1 dose of IV Lasix and his IV fluids were stopped. Repeat laboratory analysis on 09/26 showed normalization of his white blood cell count 9.8. Repeat chest x-ray showed improved aeration of the left lung base. There was concern for curvilinear lucency at the right hemidiaphragm and a dedicated abdominal series was suggested. This was completed and showed no acute process. Patient was satting well on room air. He was determined stable for discharge. He'll complete one additional day of Zithromax for a 5 day course, he'll complete 2 additional days of Ceftin ear for a seven-day course. He will return to his correction with [facility] with physical and occupational therapy. He'll follow-up with Dr. Woodson next week. Patient seen and examined at bedside. Denies any difficulty with breathing, denies any pain, asking to stay until tomorrow because he likes it here. Vital signs reviewed and stable. General: non toxic, no distress, appears younger than stated age Derm: warm, dry Head: atraumatic, normocephalic, symmetric Eyes: EOMI, no lid lag, anicteric sclera Mouth: no lip lesion, mucus membranes moist Cardiovascular: S1S2 reg, no murmur, positive posterior tibial pulse bilateral, Lungs: decreased bs bilateral bases, no rhonchi, no rales , no accessory muscle use Abdominal: soft, nontender to palpation, no guarding, no appreciable organomegaly Ext: no gross muscle atrophy, no edema, + contractures Psych: Alert, awake, child like behaviors. A total of 35 minutes of time were spent preparing this complex discharge summary . Pertinent Studies: Chest [id number] and atelectasis right lung base Chest x-ray 09/26-clearing of infiltrate Patient Condition at Discharge: Stable Plan - Discharge Summary New Discharge Prescriptions: New Cefdinir [Omnicef] 300 mg PO BID #6 cap Azithromycin [Zithromax] 500 mg PO DAILY #1 tab Continue busPIRone HCL 30 mg PO BID ARIPiprazole [Abilify] 5 mg PO HS@2100 Lisinopril [Zestril] 10 mg PO DAILY lamoTRIgine [LaMICtal] 150 mg PO BID Acetaminophen/Diphenhydramine [Tylenol PM 500-25mg] 1 tab PO HS Imipramine [Tofranil] 10 mg PO HS metroNIDAZOLE 0.75% CREAM [Metrocream] 1 applicate TOPICAL DAILY Metoprolol Succinate (ER) [Toprol XL] 25 mg PO DAILY #30 tab.er.24h Baclofen [Lioresal] 10 mg PO HS Ketoconazole 2% Cream [Nizoral 2%] 1 applic TOPICAL BID PRN PRN Reason: SKIN INFECTION ON GROIN Pantoprazole [Protonix] 40 mg PO DAILY Discontinued Multivitamin,Therapeutic [Thera] 1 tab PO DAILY Discharge Medication List ARIPiprazole [Abilify] 5 mg PO HS@2100 06/27/17 [History] Acetaminophen/Diphenhydramine [Tylenol PM 500-25mg] 1 tab PO HS 06/27/17 [History] Imipramine [Tofranil] 10 mg PO HS 06/27/17 [History] Lisinopril [Zestril] 10 mg PO DAILY 06/27/17 [History] busPIRone HCL 30 mg PO BID 06/27/17 [History] lamoTRIgine [LaMICtal] 150 mg PO BID 06/27/17 [History] metroNIDAZOLE 0.75% CREAM [Metrocream] 1 applicate TOPICAL DAILY 06/27/17 [History] Metoprolol Succinate (ER) [Toprol XL] 25 mg PO DAILY #30 tab.er.24h 07/04/17 [Rx] Baclofen [Lioresal] 10 mg PO HS 09/23/18 [History] Ketoconazole 2% Cream [Nizoral 2%] 1 applic TOPICAL BID PRN 09/23/18 [History] Pantoprazole [Protonix] 40 mg PO DAILY 09/23/18 [History] Azithromycin [Zithromax] 500 mg PO DAILY #1 tab 09/26/18 [Rx] Cefdinir [Omnicef] 300 mg PO BID #6 cap 09/26/18 [Rx] Follow up Appointment(s)/Referral(s): Willy Woodson MD [Primary Care Provider] - 1-2 days [facility], [NON-STAFF] -
[2018-09-26] MEDS: PANTOPRAZOLE 40 MG TABLET PO SCH (10:44)
[2018-09-26] MEDS: busPIRone HCl 10 MG TAB PO SCH (10:44)
[2018-09-26] MEDS: LISINOPRIL 10 MG TAB PO SCH (10:45)
[2018-09-26] MEDS: METOPROLOL SUCCINATE (ER) 25 MG TAB.ER.24H PO SCH (10:45)
[2018-09-26] MEDS: AZITHROMYCIN 500 MG TAB PO SCH (10:46)
[2018-09-26] MEDS: lamoTRIgine 100 MG TAB PO SCH (10:46)
[2018-09-26 15:18] VITALS: BP 155/93; PULSE 66; TEMP 97.9
== END 2018-09-26 15:37 | disposition home health service (06) | DRG 193 ==
LOC: EC 19:30 → INTOOBSV 20:56 → 4MS4W 20:56 → 4SSUR 09-24 14:15 → OBSVTOIN 09-25 15:16
PROVIDERS: ADMIT Internal Medicine; ATTEND Internal Medicine
DX: J18.9 Pneumonia, unspecified organism (principal); J96.01 Acute respiratory failure with hypoxia; E87.1 Hypo-osmolality and hyponatremia; E87.70 Fluid overload, unspecified; G80.9 Cerebral palsy, unspecified; E86.0 Dehydration; F41.9 Anxiety disorder, unspecified; G40.909 Epilepsy, unspecified, not intractable, without status epilepticus; I10 Essential (primary) hypertension; R62.50 Unspecified lack of expected normal physiological development in childhood; D72.829 Elevated white blood cell count, unspecified; T38.0X5A Adverse effect of glucocorticoids and synthetic analogues, initial encounter; Z79.899 Other long term (current) drug therapy; Z87.01 Personal history of pneumonia (recurrent)
CPT/HCPCS: 36415; 71045; 74019; 80048; 80053; 83605; 83735; 84484; 85025; 85027; 85610; 85730; 87040; 93005; 94640; 96365; 96375; 99285

== ENCOUNTER 2019-12-18 09:38 | Inpatient (IN) | payer MEDICARE, OTHER ==
--- NOTE | 2019-12-18 10:23 | ED ---
General Adult HPI - General Chief complaint: Skin/Abscess/Foreign Body Stated complaint: infection rt leg Time Seen by Provider: 12/18/19 09:51 Source: patient, RN notes reviewed Mode of arrival: ambulatory Limitations: no limitations - History of Present Illness Initial comments: This a 64-year-old male presents emergency Department with chief complaint of right knee infection. Patient is brought to emergency department with caregiver this patient has underlying cerebral palsy. Patient was seen wound center up until last week for wound to his right leg which has now increased in size, increased drainage redness that is spreading. No reported fever. He does report more pain. Patient was seen by wound care also about the infection was getting worse. Patient has 2 open abscesses on his right knee one the posterior aspect 1 medial aspect - Related Data Home Medications Medication Instructions Recorded Confirmed ARIPiprazole [Abilify] 5 mg PO HS@2100 06/27/17 09/23/18 Acetaminophen/Diphenhydramine 1 tab PO HS 06/27/17 09/23/18 [Tylenol PM 500-25mg] Imipramine [Tofranil] 10 mg PO HS 06/27/17 09/23/18 busPIRone HCL 30 mg PO BID 06/27/17 09/23/18 lamoTRIgine [LaMICtal] 150 mg PO BID 06/27/17 09/23/18 lisinopriL [Zestril] 10 mg PO DAILY 06/27/17 09/23/18 metroNIDAZOLE 0.75% CREAM 1 applicate TOPICAL DAILY 06/27/17 09/23/18 [Metrocream] Baclofen [Lioresal] 10 mg PO HS 09/23/18 09/23/18 Ketoconazole 2% Cream [Nizoral 2%] 1 applic TOPICAL BID PRN 09/23/18 09/23/18 Pantoprazole [Protonix] 40 mg PO DAILY 09/23/18 09/23/18 Previous Rx's Medication Instructions Recorded Metoprolol Succinate (ER) [Toprol 25 mg PO DAILY #30 tab.er.24h 07/04/17 XL] Azithromycin [Zithromax] 500 mg PO DAILY #1 tab 09/26/18 Cefdinir [Omnicef] 300 mg PO BID #6 cap 09/26/18 Allergies Allergy/AdvReac Type Severity Reaction Status Date / Time No Known Allergies Allergy Verified 12/18/19 09:49 Review of Systems ROS Statement: Those systems with pertinent positive or pertinent negative responses have been documented in the HPI. ROS Other: All systems not noted in ROS Statement are negative. Past Medical History Past Medical History: Hypertension, Seizure Disorder Additional Past Medical History / Comment(s): Cerebral palsy History of Any Multi-Drug Resistant Organisms: None Reported Past Surgical History: Unable to Obtain Additional Past Surgical History / Comment(s): staff is unsure Past Psychological History: No Psychological Hx Reported Smoking Status: Never smoker Past Alcohol Use History: None Reported Past Drug Use History: None Reported - Past Family History family Additional Family Medical History / Comment(s): heart disease runs in the family General Exam Limitations: no limitations General appearance: alert, in no apparent distress Head exam: Present: atraumatic, normocephalic, normal inspection Eye exam: Present: normal appearance, PERRL, EOMI. Absent: scleral icterus, conjunctival injection, periorbital swelling Respiratory exam: Present: normal lung sounds bilaterally. Absent: respiratory distress, wheezes, rales, rhonchi, stridor Cardiovascular Exam: Present: regular rate, normal rhythm, normal heart sounds. Absent: systolic murmur, diastolic murmur, rubs, gallop, clicks Extremities exam: Present: other (Right knee there is a 2 cm medial abscess with extending erythema, tenderness with purulent Drainage, posterior knee/ popliteal region there is 1 cm abscess with purulent drainage) Skin exam: Present: warm Course Vital Signs 12/18/19 12/18/19 09:45 09:49 Temperature 98.1 F Pulse Rate 78 Respiratory 18 18 Rate Blood Pressure 126/75 O2 Sat by Pulse 91 L Oximetry Medical Decision Making - Medical Decision Making 64-year-old male presents emergency Department for infection. Patient will be admitted for IV antibiotics, further treatment. Patient does have mild elevated CRP x-rays unremarkable. No leukocytosis. - Lab Data Result diagrams: 12/18/19 10:43 12/18/19 10:34 Lab Results 12/18/19 12/18/19 12/18/19 Range/Units 10:34 10:34 10:43 WBC 9.3 (3.8-10.6) k/uL RBC 5.00 (4.30-5.90) m/uL Hgb 15.6 (13.0-17.5) gm/dL Hct 47.2 (39.0-53.0) % MCV 94.4 D (80.0-100.0) fL MCH 31.2 (25.0-35.0) pg MCHC 33.0 (31.0-37.0) g/dL RDW 12.9 (11.5-15.5) % Plt Count 301 (150-450) k/uL Neutrophils % 77 % Lymphocytes % 13 % Monocytes % 6 % Eosinophils % 2 % Basophils % 1 % Neutrophils # 7.1 (1.3-7.7) k/uL Lymphocytes # 1.2 (1.0-4.8) k/uL Monocytes # 0.6 (0-1.0) k/uL Eosinophils # 0.2 (0-0.7) k/uL Basophils # 0.1 (0-0.2) k/uL Sodium 139 (137-145) mmol/L Potassium 5.1 (3.5-5.1) mmol/L Chloride 102 (98-107) mmol/L Carbon Dioxide 31 H (22-30) mmol/L Anion Gap 6 mmol/L BUN 14 (9-20) mg/dL Creatinine 0.58 L (0.66-1.25) mg/dL Est GFR (CKD-EPI)AfAm >90 (>60 ml/min/1.73 sqM) Est GFR (CKD-EPI)NonAf >90 (>60 ml/min/1.73 sqM) Glucose 96 (74-99) mg/dL Plasma Lactic Acid Sj 1.1 (0.7-2.0) mmol/L Calcium 9.5 (8.4-10.2) mg/dL Total Bilirubin 0.4 (0.2-1.3) mg/dL AST 29 (17-59) U/L ALT 13 (4-49) U/L Alkaline Phosphatase 132 H (38-126) U/L C-Reactive Protein 37.7 H (<10.0) mg/L Total Protein 7.0 (6.3-8.2) g/dL Albumin 4.2 (3.5-5.0) g/dL Disposition Clinical Impression: Cellulitis of right leg, Abscess of right leg Disposition: ADMITTED IP TO THIS [facility] Condition: Fair Referrals: Willy Woodson MD [Primary Care Provider] - 1-2 days
[2019-12-18 10:55] LABS: Basophils # (A) 0.1 k/uL (0-0.2); Basophils % (A) 1 %; Eosinophils # (A) 0.2 k/uL (0-0.7); Eosinophils % (A) 2 %; HCT 47.2 % (39.0-53.0); HGB 15.6 gm/dL (13.0-17.5); Lymphocytes # (A) 1.2 k/uL (1.0-4.8); Lymphocytes % (A) 13 %; MCH 31.2 pg (25.0-35.0); Mean Platelet Volume 7.3; Monocytes # (A) 0.6 k/uL (0-1.0); Monocytes % (A) 6 %; Neutrophils # (A) 7.1 k/uL (1.3-7.7); Neutrophils % (A) 77 %; Platelet Count 301 k/uL (150-450); RDW 12.9 % (11.5-15.5); WBC 9.3 k/uL (3.8-10.6)
[2019-12-18 10:59] LABS: MCV 94.4 fL (80.0-100.0)
[2019-12-18 11:01] LABS: ALT 13 U/L (4-49); AST 29 U/L (17-59); African American GFR (CKD) >90 (>60 ml/min/1.73 sqM); Albumin 4.2 g/dL (3.5-5.0); Alkaline Phosphatase 132 U/L (38-126); Anion Gap 6 mmol/L; Blood Urea Nitrogen 14 mg/dL (9-20); C Reactive Protein 37.7 mg/L (<10.0); Calcium 9.5 mg/dL (8.4-10.2); Carbon Dioxide 31 mmol/L (22-30); Chloride 102 mmol/L (98-107); Glucose 96 mg/dL (74-99); Non-African American GFR(CKD) >90 (>60 ml/min/1.73 sqM); Potassium 5.1 mmol/L (3.5-5.1); Sodium 139 mmol/L (137-145); Total Bilirubin 0.4 mg/dL (0.2-1.3)
--- NOTE | 2019-12-18 11:33 | XR ---
EXAMINATION TYPE: XR knee complete RT DATE OF EXAM: 12/18/2019 COMPARISON: None HISTORY: Unable to flex right knee wound inner thigh TECHNIQUE: Five-view right knee FINDINGS: There is loss of the lateral compartment joint space. Some deformity of the fibular head ma y be present. There is narrowing of the medial compartment joint space. Medial lateral tibial plateau and femoral condylar spurring is present. Some soft tissue swelling is over the medial right femur. No cortical erosion is evident. Large anter ior superior patellar spur is present. Patella [place] is present. Correlate for distal quadriceps tendo n rupture. IMPRESSION: 1. Low-lying patella on the lateral projection. Correlate for disruption of the quadriceps tendon. 2. Advanced degenerative change joint spaces, especially through the lateral compartment. 3. No acute fractures are identified
[2019-12-18] MEDS ORDERED: cefTRIAXone IN SWFI 1,000 MG/10 ML SYRINGE IVP STA (12:16)
[2019-12-18] MEDS ORDERED: VANCOMYCIN IV PER PHARMACY 1 EACH MISC MISCELLANE PRN ×2 (12:16→16:01)
[2019-12-18] MEDS ORDERED: ACETAMINOPHEN TAB 325 MG TAB PO PRN (12:17)
[2019-12-18] MEDS ORDERED: NALOXONE 0.4 MG/ML 1 ML VIAL IV PRN ×2 (12:17→15:40)
[2019-12-18] MEDS ORDERED: IBUPROFEN 400 MG TAB PO PRN (12:17)
[2019-12-18] MEDS ORDERED: VANCOMYCIN 1,500 MG in SODIUM CHLORIDE 0.9% 250 ML IVPB STA (12:23)
--- NOTE | 2019-12-18 16:01 | P.HPIM ---
History of Present Illness H&P Date: 12/18/19 Chief Complaint: thigh lesion Patient is a 63-year-old male with cognitive disability, cerebral palsy, prior seizure disorder, and high blood pressure who was brought in from his senior living today secondary to a lesion on his right leg. On arrival to the ER his vital signs within normal limits. White blood cell count was normal. CRP elevated at 37.7. Knee x-ray showed advanced arthritis changes. He was started on IV fluids, vancomycin, given 1 dose of Rocephin. He was admitted as observation. Patient seen and examined at bedside. He is unable to provide much history. He states that he has had a sore on his leg for 2 days. He states that draining for 2 days and a slightly painful. He denies any chest pain, shortness breath, nausea, vomiting, or diarrhea. Nursing was able to speak with the senior living who states that he come to the wound care center 2 days ago and they were putting topical treatments on the leg. They initially thought it started as an ingrown hair that got worse. He was not having any fevers. His appetite has been good at home. Does have a history of incontinence. Review of Systems Unable to obtain review of systems secondary to mentation. 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) Additional Past Surgical History / Comment(s): staff is unsure Past Psychological History: No Psychological Hx Reported Smoking Status: Never smoker Past Alcohol Use History: None Reported Past Drug Use History: None Reported - Past Family History family Additional Family Medical History / Comment(s): heart disease runs in the family Medications and Allergies Home Medications Medication Instructions Recorded Confirmed Type ARIPiprazole [Abilify] 5 mg PO HS@209906/27/17 12/18/19 History Acetaminophen/Diphenhydramine 1 tab PO HS@199906/27/17 12/18/19 History [Tylenol PM 500-25mg] Imipramine [Tofranil] 10 mg PO HS@209906/27/17 12/18/19 History lamoTRIgine [LaMICtal] 150 mg PO BID@07,209906/27/17 12/18/19 History lisinopriL [Zestril] 10 mg PO DAILY@69906/27/17 12/18/19 History metroNIDAZOLE 0.75% CREAM 1 applicate TOPICAL DAILY@69906/27/17 12/18/19 History [Metrocream] Baclofen [Lioresal] 10 mg PO BID@0800,199909/23/18 12/18/19 History Ketoconazole 2% Cream [Nizoral 2%] 1 applic TOPICAL BID PRN 09/23/18 12/18/19 History Pantoprazole [Protonix] 40 mg PO DAILY@69909/23/18 12/18/19 History Acetaminophen Tab [Tylenol] 650 mg PO QID PRN 12/18/19 12/18/19 History Benztropine Mesylate [Cogentin] 1 mg PO HS@209912/18/19 12/18/19 History Butenafine HCl [Lotrimin Ultra] 1 applic TOPICAL DIRECTED PRN 12/18/19 12/18/19 History Celecoxib [CeleBREX] 200 mg PO DAILY@79912/18/19 12/18/19 History Loperamide [Imodium] 2 - 4 mg PO QID PRN 12/18/19 12/18/19 History Magnesium Hydroxide [Milk of 2,400 mg PO DAILY PRN 12/18/19 12/18/19 History Magnesia] Medhoney 1 applic TOPICAL HS@209912/18/19 12/18/19 History Metoprolol Succinate (ER) [Toprol 25 mg PO DAILY@69912/18/19 12/18/19 History XL] Zzdvyysl-Cpgrnilhes-Qkce Oint 1 applic TOPICAL DAILY PRN 12/18/19 12/18/19 History [Triple Antibiotic Ointment] Nystatin 100,000 Unit/gm Powd 1 - 1.5 gm TOPICAL BID PRN 12/18/19 12/18/19 History [Mycostatin Powder] Pramox-Calamine 1-8% Lotion 1 applic TOPICAL DIRECTED PRN 12/18/19 12/18/19 History [Caladryl] QUEtiapine [SEROquel] 50 mg PO HS@209912/18/19 12/18/19 History Selsun Blue Sham 1% 1 applic TOPICAL DAILY PRN 12/18/19 12/18/19 History Thera Tab 1 tab PO DAILY@0700 12/18/19 12/18/19 History busPIRone HCL 15 mg PO BID@0700,1700 12/18/19 12/18/19 History diphenhydrAMINE [Benadryl] 25 mg PO Q4H PRN 12/18/19 12/18/19 History guaiFENesin-DM 100-10MG/5ML 0 ml PO DIRECTED PRN 12/18/19 12/18/19 History [Robitussin DM] Allergies Allergy/AdvReac Type Severity Reaction Status Date / Time No Known Allergies Allergy Verified 12/18/19 13:16 Physical Exam Osteopathic Statement: *. No significant issues noted on an osteopathic structural exam other than those noted in the History and Physical/Consult. Vitals: Vital Signs Temp Pulse Pulse Resp BP BP Pulse Ox 12/18/19 13:57 97.7 F 81 18 128/81 96 12/18/19 12:46 98.9 F 81 18 141/93 95 12/18/19 12:00 98.9 F 81 18 141/93 95 12/18/19 11:49 98.9 F 81 18 141/93 95 12/18/19 10:49 18 12/18/19 09:49 18 12/18/19 09:45 98.1 F 78 18 126/75 91 L Intake and Output 12/18/19 12/18/19 12/18/19 06:59 14:59 22:59 Other: # Voids 3 Weight 88.451 kg General: non toxic, no distress, appears at stated age Derm: 3 cm circlar rasied lesion right inner tight with surrounding eythema and warmth (area marked), warm, dry Head: atraumatic, normocephalic, symmetric Eyes: EOMI, no lid lag, anicteric sclera, pupils equal round reactive to light ENT: Nose and ears atraumatic, no thrush, no pharyngeal erythema Neck: No thyromegaly, no cervical lymphadenopathy, trachea midline, supple Mouth: no lip lesion, mucus membranes moist Cardiovascular: S1S2 reg, no murmur, positive posterior tibial pulse bilateral, no edema, capillary refill less than 2 seconds Lungs: clear to ascultation bilateral, no ronchi, no rales, no wheeze, no accessory muscle use Abdominal: soft, nontender to palpation, no guarding, no appreciable organomegaly, normal bowel sounds Ext: intrinsic hand muscle atropty, flexion ontractures b/l LE and b/l thumbs, muscle strength muscle strength 4 out of 5 in all 4 extremities, Neuro: moving all 4 extremities, CN II-XII grossly intact, no tremors Psych: Alert, oriented to situation, appropriate affect Results CBC & Chem 7: 12/18/19 10:43 12/18/19 10:34 Labs: Abnormal Lab Results - Last 24 Hours (Table) 12/18/19 Range/Units 10:34 Carbon Dioxide 31 H (22-30) mmol/L Creatinine 0.58 L (0.66-1.25) mg/dL Alkaline Phosphatase 132 H (38-126) U/L C-Reactive Protein 37.7 H (<10.0) mg/L Thrombosis Risk Factor Assmnt - DVT/VTE Prophylaxis DVT/VTE Prophylaxis: Mechanical Prophylaxis ordered Assessment and Plan Assessment: Left lower extremity cellulitis with bullae - monito for signs of abscess - vanco, add unsyn due to fecal incontinece - follow CBC - IVF - monitor of fevers - follow CRP - Consult wound care - if no improvement in AM consult ID HTN - resume home lisinopril, metoprolol Gerd - PPI Seizures - lamictal Cognitive disability with mood disturbance - seroquel - Imipramine - cogentin - abilify cerebral palsy with spasticity - baclofen The patient is placed in observation with an anticipated less than 2 midnight stay for evaluation of cellulitis right lower extremity . Surrogate decision-maker: has legal guardian CODE STATUS:Full DVT prophylaxis: SCDs Discussed with: patient, nursing Anticipated discharge date:in AM if cellultis not improved transition to inpatient Anticipated discharge place: return to senior living A total of 65 minutes was spent on the care of this complex patient more than 50% of the time was spent in counseling and care coordination.
[2019-12-18] MEDS: SODIUM CHLORIDE 0.45% 1,000 ML IV SCH (17:30)
[2019-12-18] MEDS: busPIRone HCl 10 MG TAB PO SCH (17:52)
[2019-12-18] MEDS: AMPICILLIN-SULBACTAM 3 GM in SODIUM CHLORIDE 0.9% 100 ML IVPB SCH (17:52)
[2019-12-18] MEDS: ARIPiprazole 5 MG TAB PO SCH (21:10)
[2019-12-18] MEDS: ACETAMINOPHEN TAB 500 MG TAB PO SCH (21:10)
[2019-12-18] MEDS: IMIPRAMINE 10 MG TAB PO SCH (21:10)
[2019-12-18] MEDS: diphenhydrAMINE 25 MG CAP PO SCH (21:10)
[2019-12-18] MEDS: BENZTROPINE MESYLATE 1 MG TAB PO SCH (21:10)
[2019-12-18] MEDS: BACLOFEN 10 MG TAB PO SCH (21:11)
[2019-12-18] MEDS: lamoTRIgine 100 MG TAB PO SCH (21:11)
[2019-12-18] MEDS: QUEtiapine 50 MG TAB PO SCH (21:11)
[2019-12-19] MEDS: AMPICILLIN-SULBACTAM 3 GM in SODIUM CHLORIDE 0.9% 100 ML IVPB SCH ×4 (00:12→23:05)
[2019-12-19] MEDS: VANCOMYCIN 1,500 MG in SODIUM CHLORIDE 0.9% 250 ML IVPB SCH ×3 (00:48→18:19)
[2019-12-19] MEDS: SODIUM CHLORIDE 0.45% 1,000 ML IV SCH ×2 (06:04→21:19)
[2019-12-19] MEDS: busPIRone HCl 10 MG TAB PO SCH ×2 (08:21→17:27)
[2019-12-19] MEDS: lisinopriL 10 MG TAB PO SCH (08:21)
[2019-12-19] MEDS: PANTOPRAZOLE 40 MG TABLET PO SCH (08:21)
[2019-12-19] MEDS: lamoTRIgine 100 MG TAB PO SCH ×2 (08:21→21:19)
[2019-12-19] MEDS: BACLOFEN 10 MG TAB PO SCH ×2 (08:22→21:19)
[2019-12-19] MEDS: METOPROLOL SUCCINATE (ER) 25 MG TAB.ER.24H PO SCH (08:22)
[2019-12-19] MEDS: MELOXICAM 7.5 MG TAB PO SCH (08:22)
[2019-12-19 11:51] LABS: HCT 42.5 % (39.0-53.0); HGB 13.7 gm/dL (13.0-17.5); MCH 30.6 pg (25.0-35.0); MCHC 32.3 g/dL (31.0-37.0); MCV 94.9 fL (80.0-100.0); Platelet Count 276 k/uL (150-450); RBC 4.48 m/uL (4.30-5.90); WBC 6.7 k/uL (3.8-10.6)
[2019-12-19 11:59] LABS: African American GFR (CKD) >90 (>60 ml/min/1.73 sqM); Anion Gap 6 mmol/L; Blood Urea Nitrogen 13 mg/dL (9-20); Calcium 9.1 mg/dL (8.4-10.2); Carbon Dioxide 27 mmol/L (22-30); Chloride 107 mmol/L (98-107); Glucose 93 mg/dL (74-99); Non-African American GFR(CKD) >90 (>60 ml/min/1.73 sqM); Potassium 4.4 mmol/L (3.5-5.1); Sodium 140 mmol/L (137-145)
--- NOTE | 2019-12-19 14:06 | P.CONS ---
History of Present Illness - Reason for Consult Consult date: 12/19/19 wound care - History of Present Illness This is a 64-year-old patient being seen by the wound care center for a nonhealing ulceration to the right medial lower extremity thigh area. Patient was found to have cellulitis and an abscess to the site. Patient has history of cognitive disability, cerebral palsy, prior seizure disorder, high blood pressure. He lives in a ch[facility]. Per nursing staff chcf stated that he was seen in the wound care center which is not at [facility]. And was putting topical treatment to the leg. Initially thought it was an ingrown hair that got worse. Patient is unable to provide much history. Review of Systems Review Of Systems: Constitutional: No fever, no chills, no night sweats. No weight change. No weakness, fatigue or lethargy. No daytime sleepiness. Integumentary:reports wounds, no lesions. No rash or pruritus. No unusual bruising. No change in hair or nails. 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) Additional Past Surgical History / Comment(s): staff is unsure Past Psychological History: No Psychological Hx Reported Smoking Status: Never smoker Past Alcohol Use History: None Reported Past Drug Use History: None Reported - Past Family History family Additional Family Medical History / Comment(s): heart disease runs in the family Medications and Allergies Home Medications Medication Instructions Recorded Confirmed Type ARIPiprazole [Abilify] 5 mg PO HS@209906/27/17 12/18/19 History Acetaminophen/Diphenhydramine 1 tab PO HS@199906/27/17 12/18/19 History [Tylenol PM 500-25mg] Imipramine [Tofranil] 10 mg PO HS@209906/27/17 12/18/19 History lamoTRIgine [LaMICtal] 150 mg PO BID@699,209906/27/17 12/18/19 History lisinopriL [Zestril] 10 mg PO DAILY@69906/27/17 12/18/19 History metroNIDAZOLE 0.75% CREAM 1 applicate TOPICAL DAILY@69906/27/17 12/18/19 History [Metrocream] Baclofen [Lioresal] 10 mg PO BID@0800,199909/23/18 12/18/19 History Ketoconazole 2% Cream [Nizoral 2%] 1 applic TOPICAL BID PRN 09/23/18 12/18/19 History Pantoprazole [Protonix] 40 mg PO DAILY@0709/23/18 12/18/19 History Acetaminophen Tab [Tylenol] 650 mg PO QID PRN 12/18/19 12/18/19 History Benztropine Mesylate [Cogentin] 1 mg PO HS@209912/18/19 12/18/19 History Butenafine HCl [Lotrimin Ultra] 1 applic TOPICAL DIRECTED PRN 12/18/19 12/18/19 History Celecoxib [CeleBREX] 200 mg PO DAILY@79912/18/19 12/18/19 History Loperamide [Imodium] 2 - 4 mg PO QID PRN 12/18/19 12/18/19 History Magnesium Hydroxide [Milk of 2,400 mg PO DAILY PRN 12/18/19 12/18/19 History Magnesia] Medhoney 1 applic TOPICAL HS@209912/18/19 12/18/19 History Metoprolol Succinate (ER) [Toprol 25 mg PO DAILY@69912/18/19 12/18/19 History XL] Punmptct-Xrsmvcurvb-Npty Oint 1 applic TOPICAL DAILY PRN 12/18/19 12/18/19 History [Triple Antibiotic Ointment] Nystatin 100,000 Unit/gm Powd 1 - 1.5 gm TOPICAL BID PRN 12/18/19 12/18/19 History [Mycostatin Powder] Pramox-Calamine 1-8% Lotion 1 applic TOPICAL DIRECTED PRN 12/18/19 12/18/19 History [Caladryl] QUEtiapine [SEROquel] 50 mg PO HS@209912/18/19 12/18/19 History Selsun Blue Sham 1% 1 applic TOPICAL DAILY PRN 12/18/19 12/18/19 History Thera Tab 1 tab PO DAILY@0712/18/19 12/18/19 History busPIRone HCL 15 mg PO BID@0700,1700 12/18/19 12/18/19 History diphenhydrAMINE [Benadryl] 25 mg PO Q4H PRN 12/18/19 12/18/19 History guaiFENesin-DM 100-10MG/5ML 0 ml PO DIRECTED PRN 12/18/19 12/18/19 History [Robitussin DM] Allergies Allergy/AdvReac Type Severity Reaction Status Date / Time No Known Allergies Allergy Verified 12/18/19 13:16 Physical Exam Vitals: Vital Signs Temp Pulse Resp BP Pulse Ox 12/19/19 07:00 98.9 F 95 18 160/81 92 L 12/19/19 04:00 17 12/19/19 02:15 97.8 F 89 17 111/67 98 12/19/19 00:00 18 12/18/19 20:00 98.0 F 89 18 145/81 94 L Intake and Output 12/18/19 12/19/19 12/19/19 22:59 06:59 14:59 Output Total 1200 900 Balance -1200 -900 Output: Urine 1200 900 Other: Voiding Method Incontinent Physical exam: General Appearance: Alert, cooperative, no distress, appears stated age. Skin: Patient has multiple cluster ulcerations to the right medial thigh with a large amount of purulent drainage from to touch. Erythema and induration noted to the site. Unable to assess for depth. Ulceration measures approximately 3 x 3 cm. all other Skin color, texture, tugor normal, no rashes or lesions. Neurologic: Alert oriented x3 Results CBC & Chem 7: 12/19/19 11:12 12/19/19 11:12 Labs: Abnormal Lab Results - Last 24 Hours (Table) 12/19/19 Range/Units 11:12 Creatinine 0.58 L (0.66-1.25) mg/dL Microbiology - Last 24 Hours (Table) 12/18/19 10:34 Blood Culture - Preliminary Blood No Growth after 24 hours Assessment and Plan (1) Nonhealing ulcer of right lower extremity with fat layer exposed Current Visit: Yes Status: Acute Code(s): L97.912 - NON-PRS CHR ULC UNSP PRT OF R LOW LEG W FAT LAYER EXPOSED SNOMED Code(s): 18482109 (2) Abscess of right leg Current Visit: Yes Status: Acute Code(s): L02.415 - CUTANEOUS ABSCESS OF RIGHT LOWER LIMB SNOMED Code(s): 015135053 (3) Cellulitis of right leg Current Visit: Yes Status: Acute Code(s): L03.115 - CELLULITIS OF RIGHT LOWER LIMB SNOMED Code(s): 870045883 Plan: Surgical consult for evaluation for possible I&D, at this time apply absorptive silver moistened dry gauze, rolled gauze and secured paper tape. Patient may require additional wound care therapy. Please verify the wound care center the patient goes to and schedule a appointment for a week after discharge. Thank you, for the consultation any questions to contact the wound care center DNP note has been reviewed and discussed with Dr. Dunne and the impression and plan of care has been directed as dictated.
--- NOTE | 2019-12-19 17:55 | P.GSCN ---
History of Present Illness Consult date: 12/19/19 History of present illness: patient was seen and examined at bedside. Patient has history of cerebral palsy and developmental delay. He apparently had a small lesion on his right inner thigh that progressively became more erythematous over the last several days he was brought to the emergency department. Since his admission he's been on antibiotics IV and the erythema has improved there is a small amount of purulent drainage. No fevers or chills reported. Past Medical History Past Medical History: Hypertension, Pneumonia, Seizure Disorder Additional Past Medical History / Comment(s): Cerebral palsy, GERD History of Any Multi-Drug Resistant Organisms: None Reported Past Surgical History: No Surgical Hx Reported (per healthcare science specialist) Additional Past Surgical History / Comment(s): staff is unsure Past Psychological History: No Psychological Hx Reported Smoking Status: Never smoker Past Alcohol Use History: None Reported Past Drug Use History: None Reported - Past Family History family Additional Family Medical History / Comment(s): heart disease runs in the family Medications and Allergies Home Medications Medication Instructions Recorded Confirmed Type ARIPiprazole [Abilify] 5 mg PO HS@209906/27/17 12/18/19 History Acetaminophen/Diphenhydramine 1 tab PO HS@199906/27/17 12/18/19 History [Tylenol PM 500-25mg] Imipramine [Tofranil] 10 mg PO HS@209906/27/17 12/18/19 History lamoTRIgine [LaMICtal] 150 mg PO BID@699,209906/27/17 12/18/19 History lisinopriL [Zestril] 10 mg PO DAILY@69906/27/17 12/18/19 History metroNIDAZOLE 0.75% CREAM 1 applicate TOPICAL DAILY@69906/27/17 12/18/19 History [Metrocream] Baclofen [Lioresal] 10 mg PO BID@799,199909/23/18 12/18/19 History Ketoconazole 2% Cream [Nizoral 2%] 1 applic TOPICAL BID PRN 09/23/18 12/18/19 History Pantoprazole [Protonix] 40 mg PO DAILY@69909/23/18 12/18/19 History Acetaminophen Tab [Tylenol] 650 mg PO QID PRN 12/18/19 12/18/19 History Benztropine Mesylate [Cogentin] 1 mg PO HS@209912/18/19 12/18/19 History Butenafine HCl [Lotrimin Ultra] 1 applic TOPICAL DIRECTED PRN 12/18/19 12/18/19 History Celecoxib [CeleBREX] 200 mg PO DAILY@79912/18/19 12/18/19 History Loperamide [Imodium] 2 - 4 mg PO QID PRN 12/18/19 12/18/19 History Magnesium Hydroxide [Milk of 2,400 mg PO DAILY PRN 12/18/19 12/18/19 History Magnesia] Medhoney 1 applic TOPICAL HS@209912/18/19 12/18/19 History Metoprolol Succinate (ER) [Toprol 25 mg PO DAILY@69912/18/19 12/18/19 History XL] Zxmhwrtr-Zprskxucly-Ynfq Oint 1 applic TOPICAL DAILY PRN 12/18/19 12/18/19 History [Triple Antibiotic Ointment] Nystatin 100,000 Unit/gm Powd 1 - 1.5 gm TOPICAL BID PRN 12/18/19 12/18/19 History [Mycostatin Powder] Pramox-Calamine 1-8% Lotion 1 applic TOPICAL DIRECTED PRN 12/18/19 12/18/19 History [Caladryl] QUEtiapine [SEROquel] 50 mg PO HS@209912/18/19 12/18/19 History Selsun Blue Sham 1% 1 applic TOPICAL DAILY PRN 12/18/19 12/18/19 History Thera Tab 1 tab PO DAILY@69912/18/19 12/18/19 History busPIRone HCL 15 mg PO BID@0700,1700 12/18/19 12/18/19 History diphenhydrAMINE [Benadryl] 25 mg PO Q4H PRN 12/18/19 12/18/19 History guaiFENesin-DM 100-10MG/5ML 0 ml PO DIRECTED PRN 12/18/19 12/18/19 History [Robitussin DM] Allergies Allergy/AdvReac Type Severity Reaction Status Date / Time No Known Allergies Allergy Verified 12/18/19 13:16 Surgical - Exam Osteopathic Statement: *. No significant issues noted on an osteopathic structural exam other than those noted in the History and Physical/Consult. Vital Signs Temp Pulse Resp BP Pulse Ox 98.1 F 78 18 126/75 91 L 12/18/19 09:45 12/18/19 09:45 12/18/19 09:45 12/18/19 09:45 12/18/19 09:45 - General well nourished, no distress - Neck trachea midline - Respiratory normal expansion, normal respiratory effort - Cardiovascular Rhythm: regular - Abdomen Abdomen: soft, non tender - Integumentary there is a recent indirect 3 cm area with an ulcerated center that has purulent drainage on the right medial leg Results - Labs 12/19/19 11:12 12/19/19 11:12 Abnormal Lab Results - Last 24 Hours (Table) 12/19/19 Range/Units 11:12 Creatinine 0.58 L (0.66-1.25) mg/dL Microbiology - Last 24 Hours (Table) 12/18/19 10:34 Blood Culture - Preliminary Blood No Growth after 24 hours Diabetes panel 12/19/19 Range/Units 11:12 Sodium 140 (137-145) mmol/L Potassium 4.4 (3.5-5.1) mmol/L Chloride 107 (98-107) mmol/L Carbon Dioxide 27 (22-30) mmol/L BUN 13 (9-20) mg/dL Creatinine 0.58 L (0.66-1.25) mg/dL Glucose 93 (74-99) mg/dL Calcium 9.1 (8.4-10.2) mg/dL Calcium panel 12/19/19 Range/Units 11:12 Calcium 9.1 (8.4-10.2) mg/dL Pituitary panel 12/19/19 Range/Units 11:12 Sodium 140 (137-145) mmol/L Potassium 4.4 (3.5-5.1) mmol/L Chloride 107 (98-107) mmol/L Carbon Dioxide 27 (22-30) mmol/L BUN 13 (9-20) mg/dL Creatinine 0.58 L (0.66-1.25) mg/dL Glucose 93 (74-99) mg/dL Calcium 9.1 (8.4-10.2) mg/dL Adrenal panel 12/19/19 Range/Units 11:12 Sodium 140 (137-145) mmol/L Potassium 4.4 (3.5-5.1) mmol/L Chloride 107 (98-107) mmol/L Carbon Dioxide 27 (22-30) mmol/L BUN 13 (9-20) mg/dL Creatinine 0.58 L (0.66-1.25) mg/dL Glucose 93 (74-99) mg/dL Calcium 9.1 (8.4-10.2) mg/dL Assessment and Plan Assessment: abscess right lower extremity Plan: the abscess was expressed at bedside purulent drainage was expressed and cultures were taken. The patient appears to be improving on IV antibiotics. He would not tolerate debridement at bedside. Since his erythema is improving he can continue on IV antibiotics at this time. abscesses draining. If debridement is necessary this can be done at a later date if the wound does not improve. continue local wound care
--- NOTE | 2019-12-19 21:03 | P.PN ---
Subjective Progress Note Date: 12/19/19 (delayed charting seen at 1445) Principal diagnosis: cellulitis Patient is a 63-year-old male with cognitive disability, cerebral palsy, prior seizure disorder, and high blood pressure who was brought in from his half-way today secondary to a lesion on his right leg. On arrival to the ER his vital signs within normal limits. White blood cell count was normal. CRP elevated at 37.7. Knee x-ray showed advanced arthritis changes. He was started on IV fluids, vancomycin, given 1 dose of Rocephin. He was admitted as observation. He was started on vanco and unasyn donato to possible gram negative contamination. His lesion did not have any drainage or flutunacne . Morning of 12/18 cellulitis had improved, however his dilation was not performed. He was not able to be transitioned to oral antibiotics and was transitioned to inpatient status. He was seen by wound care who recommended surgical drainage. Subsequently surgery was consulted. Patient seen and examined at bedside. He is asking to go home. He states his legs feel somewhat better. It's less painful. General: non toxic, no distress, appears at stated age Derm: Cellulitis to right inner thigh with large fluctuant area with pinpoint holes however no additional purulence is able to be expressed, erythema and less intense than yesterday warm, dry Head: atraumatic, normocephalic, symmetric Eyes: EOMI, no lid lag, anicteric sclera Mouth: no lip lesion, mucus membranes moist Cardiovascular: S1S2 reg, no murmur, positive posterior tibial pulse bilateral, Lungs: CTA bilateral, no rhonchi, no rales , no accessory muscle use Abdominal: soft, nontender to palpation, no guarding, no appreciable organomegaly Ext: + Gross muscle atrophy, no edema, + contractures of hip flexors and knee flexors Neuro: Intrinsic hand muscle wasting, no tremors, cranial nerves II through XII grossly intact Psych: Alert, oriented to self and situation, appropriate affect Left lower extremity cellulitis with abscess - Consult surgery - wound care recs appreciated: follow-up in clinic in 1 week - vanco, and unasyn - follow CBC - IVF - monitor of fevers - follow CRP - change to inpatient HTN - lisinopril, metoprolol - follow BP Gerd - PPI Seizures - lamictal Cognitive disability with mood disturbance - seroquel - Imipramine - cogentin - abilify cerebral palsy with spasticity - baclofen DVT prophylaxis: SCDs Discussed with: patient, nursing Anticipated discharge date: in 2-[address]: return to half-way A total of 35 minutes was spent on the care of this complex patient more than 50% of the time was spent in counseling and care coordination. Objective - Vital Signs Vital signs: Vital Signs Temp 99.2 F 12/19/19 15:00 Pulse 95 12/19/19 15:00 Resp 18 12/19/19 15:00 BP 156/83 12/19/19 15:00 Pulse Ox 93 L 12/19/19 15:00 Intake & Output 12/19/19 12/19/19 12/20/19 06:59 18:59 06:59 Output Total 1200 2600 Balance -1200 -2600 Output: Urine 1200 2600 Other: Voiding Method Incontinent - Labs CBC & Chem 7: 12/19/19 11:12 12/19/19 11:12 Labs: Abnormal Lab Results - Last 24 Hours (Table) 12/19/19 Range/Units 11:12 Creatinine 0.58 L (0.66-1.25) mg/dL Microbiology - Last 24 Hours (Table) 12/18/19 10:34 Blood Culture - Preliminary Blood No Growth after 24 hours
[2019-12-19] MEDS: BENZTROPINE MESYLATE 1 MG TAB PO SCH (21:19)
[2019-12-19] MEDS: ACETAMINOPHEN TAB 500 MG TAB PO SCH (21:19)
[2019-12-19] MEDS: diphenhydrAMINE 25 MG CAP PO SCH (21:19)
[2019-12-19] MEDS: ARIPiprazole 5 MG TAB PO SCH (21:19)
[2019-12-19] MEDS: IMIPRAMINE 10 MG TAB PO SCH (21:19)
[2019-12-19] MEDS: QUEtiapine 50 MG TAB PO SCH (21:19)
[2019-12-20] MEDS: VANCOMYCIN 1,500 MG in SODIUM CHLORIDE 0.9% 250 ML IVPB SCH ×2 (02:08→08:56)
[2019-12-20] MEDS ORDERED: VANCOMYCIN TROUGH DUE 1 EACH MISC MISCELLANE ONE (07:00)
[2019-12-20] MEDS: AMPICILLIN-SULBACTAM 3 GM in SODIUM CHLORIDE 0.9% 100 ML IVPB SCH ×2 (07:39→16:34)
[2019-12-20] MEDS: METOPROLOL SUCCINATE (ER) 25 MG TAB.ER.24H PO SCH (07:39)
[2019-12-20] MEDS: busPIRone HCl 10 MG TAB PO SCH ×2 (07:40→17:20)
[2019-12-20] MEDS: lamoTRIgine 100 MG TAB PO SCH ×2 (07:40→21:22)
[2019-12-20] MEDS: lisinopriL 10 MG TAB PO SCH (07:40)
[2019-12-20] MEDS: SODIUM CHLORIDE 0.45% 1,000 ML IV SCH ×2 (07:41→21:30)
[2019-12-20] MEDS: PANTOPRAZOLE 40 MG TABLET PO SCH (07:41)
[2019-12-20] MEDS: BACLOFEN 10 MG TAB PO SCH ×2 (07:41→21:22)
[2019-12-20] MEDS: MELOXICAM 7.5 MG TAB PO SCH (07:41)
[2019-12-20 08:18] LABS: HCT 42.4 % (39.0-53.0); HGB 14.1 gm/dL (13.0-17.5); MCH 31.3 pg (25.0-35.0); MCHC 33.2 g/dL (31.0-37.0); Platelet Count 261 k/uL (150-450); RBC 4.51 m/uL (4.30-5.90); RDW 12.7 % (11.5-15.5); WBC 7.5 k/uL (3.8-10.6)
[2019-12-20 08:26] LABS: African American GFR (CKD) >90 (>60 ml/min/1.73 sqM); Anion Gap 4 mmol/L; Blood Urea Nitrogen 12 mg/dL (9-20); Calcium 8.8 mg/dL (8.4-10.2); Carbon Dioxide 28 mmol/L (22-30); Chloride 107 mmol/L (98-107); Glucose 91 mg/dL (74-99); Non-African American GFR(CKD) >90 (>60 ml/min/1.73 sqM); Potassium 4.3 mmol/L (3.5-5.1); Sodium 139 mmol/L (137-145)
[2019-12-20] MEDS: VANCOMYCIN 1,250 MG in SODIUM CHLORIDE 0.9% 250 ML IVPB SCH ×2 (10:22→17:20)
--- NOTE | 2019-12-20 13:06 | P.PN ---
Subjective Progress Note Date: 12/20/19 Principal diagnosis: Cellulitis with abscess Patient seen and examined at bedside. Patient is calm with no acute distress. Patient was to go home. Patient's abscess was drained at bedside yesterday by surgery. Patient's doing well. Patient is a 63-year-old male with cognitive disability, cerebral palsy, prior seizure disorder, and high blood pressure who was brought in from his care home today secondary to a lesion on his right leg. On arrival to the ER his vital signs within normal limits. White blood cell count was normal. CRP elevated at 37.7. Knee x-ray showed advanced arthritis changes. He was started on IV fluids, vancomycin, given 1 dose of Rocephin. He was admitted as observation. He was started on vanco and unasyn donato to possible gram negative contamination. His lesion did not have any drainage or flutunacne . Morning of 12/18 cellulitis had improved, however his dilation was not performed. He was not able to be transitioned to oral antibiotics and was transitioned to inpatient status. He was seen by wound care who recommended surgical drainage. Subsequently surgery was consulted. Objective - Vital Signs Vital signs: Vital Signs Temp 98.3 F 12/20/19 07:00 Pulse 75 12/20/19 07:00 Resp 18 12/20/19 07:00 BP 138/85 12/20/19 07:00 Pulse Ox 92 L 12/20/19 07:00 Intake & Output 12/19/19 12/20/19 12/20/19 18:59 06:59 18:59 Output Total 2600 1000 Balance -2600 -1000 Output: Urine 2600 1000 Other: Voiding Method Incontinent - Exam General: [non toxic], [no distress], [appears at stated age] Derm: [warm], [dry] Head: [atraumatic], [normocephalic], [symmetric] Eyes: [EOMI], [no lid lag], [anicteric sclera] Mouth: [no lip lesion], [mucus membranes moist] Cardiovascular: [S1S2 reg], [no murmur], [positive posterior tibial pulse bilateral], Lungs: [CTA bilateral], [no rhonchi, no rales] , [no accessory muscle use] Abdominal: [soft], [ nontender to palpation], [no guarding], [no appreciable organomegaly] Ext: [no gross muscle atrophy], [no edema], [no contractures] Neuro: [ CN II-XI grossly intact], [no focal neuro deficits] Psych: [Alert], [oriented], [appropriate affect] - Labs CBC & Chem 7: 12/20/19 07:26 12/20/19 07:26 Labs: Abnormal Lab Results - Last 24 Hours (Table) 12/20/19 Range/Units 07:26 Creatinine 0.51 L (0.66-1.25) mg/dL Microbiology - Last 24 Hours (Table) 12/18/19 10:34 Blood Culture - Preliminary Blood No Growth after 48 hours 12/19/19 17:52 Gram Stain - Preliminary Leg - Right Wound Culture - Preliminary 12/19/19 17:52 Anaerobic Culture - Preliminary Leg - Right Assessment and Plan Assessment: Left lower extremity cellulitis with abscess - surgery recommendations appreciated - cultures pending - wound care recs appreciated: follow-up in clinic in 1 week - [facility] - follow CBC - IVF - monitor of fevers - follow CRP - change to inpatient HTN - lisinopril, metoprolol - follow BP Gerd - PPI Seizures - lamictal Cognitive disability with mood disturbance - seroquel - Imipramine - cogentin - abilify cerebral palsy with spasticity - baclofen DVT prophylaxis: SCDs Discussed with: patient, nursing Anticipated discharge date: in 2-[address]: return to care home Time with Patient: Greater than 30
--- NOTE | 2019-12-20 17:32 | P.PN ---
Subjective Progress Note Date: 12/20/19 patient doing better today the wound is improved. He is asking the home. There is still some purulent drainage. Erythema is improved Objective - Vital Signs Vital signs: Vital Signs Temp 98.4 F 12/20/19 15:23 Pulse 89 12/20/19 15:23 Resp 15 12/20/19 15:23 BP 120/78 12/20/19 15:23 Pulse Ox 94 L 12/20/19 15:23 Intake & Output 12/19/19 12/20/19 12/20/19 18:59 06:59 18:59 Output Total 2600 1000 Balance -2600 -1000 Output: Urine 2600 1000 Other: Voiding Method Incontinent # Voids 1 - Constitutional General appearance: Present: cooperative - Integumentary Integumentary Comment(s): in the right medial leg there is a recent meter by 3 cm wound with minimal surrounding erythema and some purulent drainage. There is an ulcerated center - Labs CBC & Chem 7: 12/20/19 07:26 12/20/19 07:26 Labs: Abnormal Lab Results - Last 24 Hours (Table) 12/20/19 Range/Units 07:26 Creatinine 0.51 L (0.66-1.25) mg/dL Microbiology - Last 24 Hours (Table) 12/18/19 10:34 Blood Culture - Preliminary Blood No Growth after 48 hours 12/19/19 17:52 Gram Stain - Preliminary Leg - Right Wound Culture - Preliminary 12/19/19 17:52 Anaerobic Culture - Preliminary Leg - Right Assessment and Plan Assessment: abscess right lower extremity Plan: abscesses draining continue to improve on IV antibiotics. Continue wait for cultures. Patient may benefit from some debridement however wound has significantly improved since the drainage and expressing the wound. He would not tolerate operative intervention at the bedside and would likely need to go to the OR for debridement if that becomes necessary.
[2019-12-20] MEDS: ACETAMINOPHEN TAB 500 MG TAB PO SCH (21:22)
[2019-12-20] MEDS: ARIPiprazole 5 MG TAB PO SCH (21:22)
[2019-12-20] MEDS: diphenhydrAMINE 25 MG CAP PO SCH (21:22)
[2019-12-20] MEDS: BENZTROPINE MESYLATE 1 MG TAB PO SCH (21:22)
[2019-12-20] MEDS: IMIPRAMINE 10 MG TAB PO SCH (21:22)
[2019-12-20] MEDS: QUEtiapine 50 MG TAB PO SCH (21:22)
[2019-12-21] MEDS: AMPICILLIN-SULBACTAM 3 GM in SODIUM CHLORIDE 0.9% 100 ML IVPB SCH ×3 (00:06→16:34)
[2019-12-21] MEDS: VANCOMYCIN 1,250 MG in SODIUM CHLORIDE 0.9% 250 ML IVPB SCH ×2 (01:52→08:35)
[2019-12-21] MEDS: PANTOPRAZOLE 40 MG TABLET PO SCH (07:25)
[2019-12-21] MEDS: MELOXICAM 7.5 MG TAB PO SCH (07:25)
[2019-12-21] MEDS: busPIRone HCl 10 MG TAB PO SCH ×2 (07:25→16:35)
[2019-12-21] MEDS: BACLOFEN 10 MG TAB PO SCH (07:25)
[2019-12-21] MEDS: METOPROLOL SUCCINATE (ER) 25 MG TAB.ER.24H PO SCH (07:26)
[2019-12-21] MEDS: lamoTRIgine 100 MG TAB PO SCH (07:26)
[2019-12-21] MEDS: lisinopriL 10 MG TAB PO SCH (07:26)
[2019-12-21 08:12] VITALS: PULSE 84
[2019-12-21 08:52] LABS: Basophils % (A) 1 %; Eosinophils # (A) 0.3 k/uL (0-0.7); Eosinophils % (A) 3 %; HGB 14.3 gm/dL (13.0-17.5); Lymphocytes # (A) 1.5 k/uL (1.0-4.8); Lymphocytes % (A) 17 %; MCH 30.7 pg (25.0-35.0); MCHC 32.5 g/dL (31.0-37.0); MCV 94.4 fL (80.0-100.0); Mean Platelet Volume 7.2; Monocytes # (A) 0.6 k/uL (0-1.0); Monocytes % (A) 7 %; Neutrophils # (A) 6.1 k/uL (1.3-7.7); Neutrophils % (A) 71 %; Platelet Count 249 k/uL (150-450); RBC 4.67 m/uL (4.30-5.90); WBC 8.6 k/uL (3.8-10.6)
[2019-12-21 08:56] LABS: ALT 14 U/L (4-49); AST 27 U/L (17-59); African American GFR (CKD) >90 (>60 ml/min/1.73 sqM); Albumin 3.6 g/dL (3.5-5.0); Alkaline Phosphatase 104 U/L (38-126); Anion Gap 6 mmol/L; Blood Urea Nitrogen 13 mg/dL (9-20); Calcium 8.9 mg/dL (8.4-10.2); Carbon Dioxide 26 mmol/L (22-30); Chloride 106 mmol/L (98-107); Glucose 92 mg/dL (74-99); Non-African American GFR(CKD) >90 (>60 ml/min/1.73 sqM); Potassium 4.3 mmol/L (3.5-5.1); Sodium 138 mmol/L (137-145); Total Bilirubin 0.5 mg/dL (0.2-1.3); Total Protein 6.1 g/dL (6.3-8.2)
--- NOTE | 2019-12-21 10:15 | P.PN ---
Subjective Principal diagnosis: Cellulitis with abscess. Patient seen and examined at bedside. Patient is calm with no acute distress. Patient was to go home. Patient's abscess was drained at bedside yesterday by surgery. Patient's doing well. Wound culture is presumptively MRSA. Patient is a 63-year-old male with cognitive disability, cerebral palsy, prior seizure disorder, and high blood pressure who was brought in from his skilled nursing today secondary to a lesion on his right leg. On arrival to the ER his vital signs within normal limits. White blood cell count was normal. CRP elevated at 37.7. Knee x-ray showed advanced arthritis changes. He was started on IV fluids, vancomycin, given 1 dose of Rocephin. He was admitted as observation. He was started on vanco and unasyn donato to possible gram negative contamination. His lesion did not have any drainage or flutunacne . Morning of 12/18 cellulitis had improved, however his dilation was not performed. He was not able to be transitioned to oral antibiotics and was transitioned to inpatient status. He was seen by wound care who recommended surgical drainage. Subsequently surgery was consulted. Objective - Vital Signs Vital signs: Vital Signs Temp 97.5 F L 12/21/19 07:11 Pulse 84 12/21/19 07:11 Resp 17 12/21/19 07:11 BP 134/80 12/21/19 07:11 Pulse Ox 94 L 12/21/19 07:11 Intake & Output 12/20/19 12/21/19 12/21/19 18:59 06:59 18:59 Output Total 600 450 Balance -600 -450 Output: Urine 600 450 Other: Voiding Method Incontinent Incontinent # Voids 1 2 1 # Bowel Movements 1 - Exam General: [non toxic], [no distress], [appears at stated age] Derm: [warm], [dry] Head: [atraumatic], [normocephalic], [symmetric] Eyes: [EOMI], [no lid lag], [anicteric sclera] Mouth: [no lip lesion], [mucus membranes moist] Cardiovascular: [S1S2 reg], [no murmur], [positive posterior tibial pulse bilateral], Lungs: [CTA bilateral], [no rhonchi, no rales] , [no accessory muscle use] Abdominal: [soft], [ nontender to palpation], [no guarding], [no appreciable organomegaly] Ext: [no gross muscle atrophy], [no edema], [no contractures] Neuro: [ CN II-XI grossly intact], [no focal neuro deficits] Psych: [Alert], [oriented], [appropriate affect] - Labs CBC & Chem 7: 12/21/19 07:29 12/21/19 07:29 Labs: Abnormal Lab Results - Last 24 Hours (Table) 12/21/19 Range/Units 07:29 Creatinine 0.57 L (0.66-1.25) mg/dL Total Protein 6.1 L (6.3-8.2) g/dL Microbiology - Last 24 Hours (Table) 12/19/19 17:52 Anaerobic Culture - Preliminary Leg - Right 12/19/19 17:52 Gram Stain - Preliminary Leg - Right Wound Culture - Preliminary Presumptive MRSA 12/18/19 10:34 Blood Culture - Preliminary Blood No Growth after 48 hours Assessment and Plan Assessment: Left lower extremity cellulitis with abscess improving - surgery recommendations appreciated: Possible debridement - cultures revealed presumptive MRSA await sensitivity - wound care recs appreciated: follow-up in clinic in 1 week - [facility] - follow CBC - IVF - monitor of fevers - follow CRP - change to inpatient HTN - lisinopril, metoprolol - follow BP Gerd - PPI Seizures - lamictal Cognitive disability with mood disturbance - seroquel - Imipramine - cogentin - abilify cerebral palsy with spasticity - baclofen DVT prophylaxis: SCDs Discussed with: patient, nursing Anticipated discharge date: in 1-[address]: return to skilled nursing
[2019-12-21] MEDS: SODIUM CHLORIDE 0.45% 1,000 ML IV SCH (11:33)
--- NOTE | 2019-12-21 12:42 | P.PN ---
Subjective Progress Note Date: 12/21/19 Patient seen and examined at bedside. No acute events. Objective - Vital Signs Vital signs: Vital Signs Temp 97.5 F L 12/21/19 07:11 Pulse 84 12/21/19 07:11 Resp 17 12/21/19 07:11 BP 134/80 12/21/19 07:11 Pulse Ox 94 L 12/21/19 07:11 Intake & Output 12/20/19 12/21/19 12/21/19 18:59 06:59 18:59 Output Total 600 450 Balance -600 -450 Output: Urine 600 450 Other: Voiding Method Incontinent Incontinent # Voids 1 2 1 # Bowel Movements 1 - Constitutional General appearance: Present: cooperative - Integumentary Integumentary Comment(s): Right lower extremity abscess site actively draining serosanguineous material, cellulitis greatly improved from previous markings no palpable fluctuance or significant induration at this point - Labs CBC & Chem 7: 12/21/19 07:29 12/21/19 07:29 Labs: Abnormal Lab Results - Last 24 Hours (Table) 12/21/19 Range/Units 07:29 Creatinine 0.57 L (0.66-1.25) mg/dL Total Protein 6.1 L (6.3-8.2) g/dL Microbiology - Last 24 Hours (Table) 12/19/19 17:52 Anaerobic Culture - Preliminary Leg - Right 12/19/19 17:52 Gram Stain - Preliminary Leg - Right Wound Culture - Preliminary Presumptive MRSA 12/18/19 10:34 Blood Culture - Preliminary Blood No Growth after 48 hours Assessment and Plan (1) Abscess of right leg Narrative/Plan: Abscess and cellulitis of right lower extremity continue to improve. Continue antibiotics per medical recommendations. Abscess has actively drained on its own, no plan for surgical intervention. Current Visit: Yes Status: Acute Code(s): L02.415 - CUTANEOUS ABSCESS OF RIGHT LOWER LIMB SNOMED Code(s): 447853223
[2019-12-21 14:50] VITALS: BP 152/102; RESP 20; TEMP 98.4
--- NOTE | 2019-12-21 15:20 | P.DS ---
Providers Date of admission: 12/18/19 12:30 Expected date of discharge: 12/21/19 Attending physician: Mera Shaw DO Consults: 12/19/19 14:33 Consult Physician Routine Consulting Provider: Reuben Landrum Consult Reason/Comments: right thigh abscess Do you want consulting provider notified?: Yes Primary care physician: Willy Woodson [facility] Course: Admitting diagnoses: Left lower extremity cellulitis with bullae Hypertension GERD Cognitive disability with mood disturbance Cerebral palsy with spasticity Discharge diagnoses: Left lower extremity cellulitis with abscess status post I & D Hypertension GERD Seizure disorder Cognitive disability with mood disturbance Cerebral palsy with spasticity Patient seen and examined at bedside. Patient is calm with no acute distress. Patient was to go home. Patient's abscess was drained at bedside yesterday by surgery. Patient's doing well. Wound culture is presumptively MRSA. Patient is a 63-year-old male with cognitive disability, cerebral palsy, prior seizure disorder, and high blood pressure who was brought in from his [facility] today secondary to a lesion on his right leg. On arrival to the ER his vital signs within normal limits. White blood cell count was normal. CRP elevated at 37.7. Knee x-ray showed advanced arthritis changes. He was started on IV fluids, vancomycin, given 1 dose of Rocephin. He was admitted as observation. He was started on vanco and unasyn donato to possible gram negative contamination. His lesion did not have any drainage or flutunacne . Morning of 12/18 cellulitis had improved, however his dilation was not performed. He was not able to be transitioned to oral antibiotics and was transitioned to inpatient status. He was seen by wound care who recommended surgical drainage. Subsequently surgery was consulted. IV antibiotics will be continued and patient will be transitioned to oral antibiotic therapy. Follow-up with PCP in 2-7 days Follow-up with wound care in 1-2 days Home care referral provided Diet cardiac Activity as tolerated Condition fair Patient Condition at Discharge: Fair Plan - Discharge Summary Discharge Rx Participant: Yes New Discharge Prescriptions: New Sulfamethox-Tmp 800-160Mg [Bactrim DS 800-160 mg] 1 each PO BID 14 Days #28 tab Continue ARIPiprazole [Abilify] 5 mg PO HS@2100 lisinopriL [Zestril] 10 mg PO DAILY@0700 lamoTRIgine [LaMICtal] 150 mg PO BID@0700,2100 Acetaminophen/Diphenhydramine [Tylenol PM 500-25mg] 1 tab PO HS@2000 Imipramine [Tofranil] 10 mg PO HS@2100 metroNIDAZOLE 0.75% CREAM [Metrocream] 1 applicate TOPICAL DAILY@0700 Baclofen [Lioresal] 10 mg PO BID@0800,2000 Ketoconazole 2% Cream [Nizoral 2%] 1 applic TOPICAL BID PRN PRN Reason: SKIN INFECTION ON GROIN Pantoprazole [Protonix] 40 mg PO DAILY@0700 Thera Tab 1 tab PO DAILY@0700 Xynubgru-Kiahimfxes-Khpt Oint [Triple Antibiotic Ointment] 1 applic TOPICAL DAILY PRN PRN Reason: MINOR ABRASIONS guaiFENesin-DM 100-10MG/5ML [Robitussin DM] 0 ml PO DIRECTED PRN PRN Reason: Cough Nystatin 100,000 Unit/gm Powd [Mycostatin Powder] 1 - 1.5 gm TOPICAL BID PRN PRN Reason: Rash Magnesium Hydroxide [Milk of Magnesia] 2,400 mg PO DAILY PRN PRN Reason: Constipation Butenafine HCl [Lotrimin Ultra] 1 applic TOPICAL DIRECTED PRN PRN Reason: ATHLETES FOOT Pramox-Calamine 1-8% Lotion [Caladryl] 1 applic TOPICAL DIRECTED PRN PRN Reason: SUN BURN Loperamide [Imodium] 2 - 4 mg PO QID PRN PRN Reason: Loose Stool diphenhydrAMINE [Benadryl] 25 mg PO Q4H PRN PRN Reason: INSECT BITES QUEtiapine [SEROquel] 50 mg PO HS@2100 Medhoney 1 applic TOPICAL HS@2100 Celecoxib [CeleBREX] 200 mg PO DAILY@0800 busPIRone HCL 15 mg PO BID@0700,1700 Benztropine Mesylate [Cogentin] 1 mg PO HS@2100 Selsun Blue Sham 1% 1 applic TOPICAL DAILY PRN PRN Reason: DANDRUFF Metoprolol Succinate (ER) [Toprol XL] 25 mg PO DAILY@0700 No Action Acetaminophen Tab [Tylenol] 650 mg PO QID PRN PRN Reason: Fever Discharge Medication List ARIPiprazole [Abilify] 5 mg PO HS@2100 06/27/17 [History] Acetaminophen/Diphenhydramine [Tylenol PM 500-25mg] 1 tab PO HS@199906/27/17 [History] Imipramine [Tofranil] 10 mg PO HS@209906/27/17 [History] lamoTRIgine [LaMICtal] 150 mg PO BID@699,209906/27/17 [History] lisinopriL [Zestril] 10 mg PO DAILY@69906/27/17 [History] metroNIDAZOLE 0.75% CREAM [Metrocream] 1 applicate TOPICAL DAILY@69906/27/17 [History] Baclofen [Lioresal] 10 mg PO BID@799,199909/23/18 [History] Ketoconazole 2% Cream [Nizoral 2%] 1 applic TOPICAL BID PRN 09/23/18 [History] Pantoprazole [Protonix] 40 mg PO DAILY@69909/23/18 [History] Acetaminophen Tab [Tylenol] 650 mg PO QID PRN 12/18/19 [History] Benztropine Mesylate [Cogentin] 1 mg PO HS@209912/18/19 [History] Butenafine HCl [Lotrimin Ultra] 1 applic TOPICAL DIRECTED PRN 12/18/19 [History] Celecoxib [CeleBREX] 200 mg PO DAILY@79912/18/19 [History] Loperamide [Imodium] 2 - 4 mg PO QID PRN 12/18/19 [History] Magnesium Hydroxide [Milk of Magnesia] 2,400 mg PO DAILY PRN 12/18/19 [History] Medhoney 1 applic TOPICAL HS@209912/18/19 [History] Metoprolol Succinate (ER) [Toprol XL] 25 mg PO DAILY@69912/18/19 [History] Vulnajhh-Vfnukzqycl-Sago Oint [Triple Antibiotic Ointment] 1 applic TOPICAL DAILY PRN 12/18/19 [History] Nystatin 100,000 Unit/gm Powd [Mycostatin Powder] 1 - 1.5 gm TOPICAL BID PRN 12/18/19 [History] Pramox-Calamine 1-8% Lotion [Caladryl] 1 applic TOPICAL DIRECTED PRN 12/18/19 [History] QUEtiapine [SEROquel] 50 mg PO HS@209920 [History] Selsun Blue Sham 1% 1 applic TOPICAL DAILY PRN 12/18/19 [History] Thera Tab 1 tab PO DAILY@0700 12/18/19 [History] busPIRone HCL 15 mg PO BID@0700,1700 12/18/19 [History] diphenhydrAMINE [Benadryl] 25 mg PO Q4H PRN 12/18/19 [History] guaiFENesin-DM 100-10MG/5ML [Robitussin DM] 0 ml PO DIRECTED PRN 12/18/19 [History] Sulfamethox-Tmp 800-160Mg [Bactrim DS 800-160 mg] 1 each PO BID 14 Days #28 tab 12/21/19 [Rx] Follow up Appointment(s)/Referral(s): Willy Woodson MD [Primary Care Provider] - 1-2 days [facility], [NON-STAFF] - As Needed Activity/Diet/Wound Care/Special Instructions: RN: call pt's fci first to see if they can transport home at discharge. If not, contact the legal guardian who will likely authorize a w/c van. Discharge Disposition: HOME WITH HOME HEALTH SERVICES
[2019-12-21] MEDS ORDERED: SULFAMETHOX-TMP 800-160MG 1 EACH TAB PO SCH (21:00)
[2019-12-22] MEDS ORDERED: VANCOMYCIN TROUGH DUE 1 EACH MISC MISCELLANE ONE (08:00)
== END 2019-12-21 18:37 | disposition home health service (06) | DRG 603 ==
LOC: EC 09:38 → 4SSUR 12:30 → OBSVTOIN 12:30 → 4SSUR 15:57
PROVIDERS: ADMIT Internal Medicine; ATTEND Internal Medicine
PROC: 0Y9H3ZZ Drainage of Right Lower Leg, Percutaneous Approach (ICD-10-PCS; principal; 2019-12-19)
DX: L03.115 Cellulitis of right lower limb (principal); G80.1 Spastic diplegic cerebral palsy; I10 Essential (primary) hypertension; G40.909 Epilepsy, unspecified, not intractable, without status epilepticus; F81.89 Other developmental disorders of scholastic skills; K21.9 Gastro-esophageal reflux disease without esophagitis; L02.415 Cutaneous abscess of right lower limb; G31.84 Mild cognitive impairment of uncertain or unknown etiology; F39 Unspecified mood [affective] disorder; M19.90 Unspecified osteoarthritis, unspecified site; Z79.1 Long term (current) use of non-steroidal anti-inflammatories (NSAID); Z79.899 Other long term (current) drug therapy; Z82.49 Family history of ischemic heart disease and other diseases of the circulatory system; Z87.01 Personal history of pneumonia (recurrent)
CPT/HCPCS: 36415; 80048; 80053; 80202; 83605; 85025; 85027; 86140; 87040; 87070; 87075; 87077; 87186; 87205; 96374; 99284

== ENCOUNTER 2020-04-27 21:58 | Emergency (ER) | payer MEDICARE, OTHER ==
[2020-04-27 22:11] VITALS: BP 107/76; PULSE 97; RESP 16; TEMP 98.5
--- NOTE | 2020-04-27 22:13 | ED ---
Male Urogenital HPI - General Chief complaint: Urogenital Stated complaint: Male Source: patient, EMS Mode of arrival: EMS Limitations: altered mental status - History of Present Illness Initial comments: 65 year-old female patient presents to the emergency department for replacement of lucero catheter. Patient's homecare nurse tried to change his catheter tonight and was unsuccessful. He sent him here to have a Lucero catheter changed. Patient denies any current pain. They deny any fevers or chills. No vomiting. Patient resides at an [facility] home. Has a chronic indwelling Lucero for urinary retention. No other complaints or concerns. - Related Data Home Medications Medication Instructions Recorded Confirmed Acetaminophen/Diphenhydramine 1 tab PO HS@199906/27/17 12/26/19 [Tylenol PM 500-25mg] Imipramine [Tofranil] 10 mg PO HS@209906/27/17 12/26/19 lamoTRIgine [LaMICtal] 150 mg PO BID@699,209906/27/17 12/26/19 Baclofen [Lioresal] 10 mg PO BID@699,199909/23/18 12/26/19 Pantoprazole [Protonix] 40 mg PO DAILY@69909/23/18 12/26/19 Acetaminophen Tab [Tylenol] 650 mg PO QID PRN 12/18/19 12/26/19 Benztropine Mesylate [Cogentin] 1 mg PO HS@209912/18/19 12/26/19 Celecoxib [CeleBREX] 200 mg PO DAILY@69912/18/19 12/26/19 Loperamide [Imodium] 2 - 4 mg PO QID PRN 12/18/19 12/26/19 Magnesium Hydroxide [Milk of 2,400 mg PO DAILY PRN 12/18/19 12/26/19 Magnesia] Medhoney 1 applic TOPICAL HS@209912/18/19 12/26/19 Nystatin 100,000 Unit/gm Powd 1 - 1.5 gm TOPICAL BID PRN 12/18/19 12/26/19 [Mycostatin Powder] QUEtiapine [SEROquel] 50 mg PO HS@209912/18/19 12/26/19 Selsun Blue Sham 1% 1 applic TOPICAL DAILY PRN 12/18/19 12/26/19 Thera Tab 1 tab PO DAILY@0700 12/18/19 12/26/19 busPIRone HCL 15 mg PO BID@0700,1700 12/18/19 12/26/19 Previous Rx's Medication Instructions Recorded ARIPiprazole [Abilify] 10 mg PO HS #30 tab 01/12/20 Metoprolol Tartrate [Lopressor] 25 mg PO BID #60 tab 01/12/20 Tamsulosin [Flomax] 0.4 mg PO PC-SUPPER #30 cap.er.24h 01/12/20 Allergies Allergy/AdvReac Type Severity Reaction Status Date / Time No Known Allergies Allergy Verified 12/18/19 13:16 Review of Systems ROS Statement: Those systems with pertinent positive or pertinent negative responses have been documented in the HPI. ROS Other: All systems not noted in ROS Statement are negative. Past Medical History Past Medical History: Hypertension, Pneumonia, Seizure Disorder Additional Past Medical History / Comment(s): Cerebral palsy, GERD History of Any Multi-Drug Resistant Organisms: MRSA Date of last positivie culture/infection: 12/19/19 MDRO Source:: LEG MRSA Past Surgical History: No Surgical Hx Reported Additional Past Surgical History / Comment(s): staff is unsure Past Psychological History: No Psychological Hx Reported Smoking Status: Never smoker Past Alcohol Use History: None Reported Past Drug Use History: None Reported - Past Family History family Additional Family Medical History / Comment(s): heart disease runs in the family General Exam Limitations: altered mental status General appearance: alert, in no apparent distress, other (Well-developed, well- nourished adult male patient of signs upon presentation are temperature 98.5F, pulse 97, respirations 16, blood pressure 107/76, pulse ox 98% on room air.) Respiratory exam: Present: normal lung sounds bilaterally. Absent: respiratory distress, wheezes, rales, rhonchi, stridor Cardiovascular Exam: Present: regular rate, normal rhythm, normal heart sounds. Absent: systolic murmur, diastolic murmur, rubs, gallop, clicks GI/Abdominal exam: Present: soft, normal bowel sounds, other (There is PEG tube to left upper quadrant, no surrounding erythema or drainage.). Absent: distende d, tenderness, guarding, rebound, rigid exam: Present: other (Indwelling Lucero catheter with clear yellow urine) Neurological exam: Present: alert, CN II-XII intact. Absent: oriented X3 (Oriented to baseline, x1) Psychiatric exam: Present: normal affect, normal mood Skin exam: Present: warm, dry, intact, normal color. Absent: rash Course Vital Signs 04/27/20 22:07 Temperature 98.5 F Pulse Rate 97 Respiratory 16 Rate Blood Pressure 107/76 O2 Sat by Pulse 98 Oximetry Medical Decision Making - Medical Decision Making 65-year-old male patient of an adult foster care with chronic indwelling Lucero presented for Lucero catheter change. His home care nurse attempted to change the catheter earlier but was unsuccessful at reinsertion. Patient's physical exam is unremarkable abdomen is soft and nontender. Lucero catheter was placed easily. He has output of clear yellow urine. He is afebrile normal vitals. He'll be discharged back to his [facility] home to follow-up with his primary care physician as needed. Disposition Clinical Impression: Lucero catheter problem Disposition: HOME SELF-CARE Condition: Good Instructions (If sedation given, give patient instructions): Lucero Catheter Placement and Care (ED) Additional Instructions: Follow up with the primary care physician for recheck as soon as possible. Return for any new, worsening, or concerning symptoms. Is patient prescribed a controlled substance at d/c from ED?: No Referrals: Gilbert Knight MD [Primary Care Provider] - 1-2 days Time of Disposition: 22:13
== END 2020-04-27 22:20 | disposition home or self-care (01) ==
LOC: EC 21:58
DX: T83.9XXA Unspecified complication of genitourinary prosthetic device, implant and graft, initial encounter (principal); I10 Essential (primary) hypertension; G40.909 Epilepsy, unspecified, not intractable, without status epilepticus; K21.9 Gastro-esophageal reflux disease without esophagitis; G80.9 Cerebral palsy, unspecified; Z79.1 Long term (current) use of non-steroidal anti-inflammatories (NSAID); Z79.899 Other long term (current) drug therapy; Z86.14 Personal history of Methicillin resistant Staphylococcus aureus infection
CPT/HCPCS: 51702; 99283

== ENCOUNTER 2020-08-08 13:43 | Emergency (ER) | payer MEDICARE, OTHER ==
--- NOTE | 2020-08-08 14:18 | ED ---
General Adult HPI - General Chief complaint: Urogenital Stated complaint: Testicular torsion Time Seen by Provider: 08/08/20 13:50 Source: patient, EMS, RN notes reviewed, old records reviewed Mode of arrival: EMS Limitations: altered mental status - History of Present Illness Initial comments: This is a 65-year-old male who presents to the emergency department because the correction sent him in noting that his right testicle was enlarged. According to EMS they wanted him to be checked out for testicular torsion. According to EMS there were no other complaints or no other abnormalities and the patient is at his neurologic baseline. Patient is unable to answer any questions or help with any of the history and this is baseline. - Related Data Home Medications Medication Instructions Recorded Confirmed Acetaminophen/Diphenhydramine 1 tab PO HS@199906/27/17 12/26/19 [Tylenol PM 500-25mg] Imipramine [Tofranil] 10 mg PO HS@209906/27/17 12/26/19 lamoTRIgine [LaMICtal] 150 mg PO BID@699,209906/27/17 12/26/19 Baclofen [Lioresal] 10 mg PO BID@699,199909/23/18 12/26/19 Pantoprazole [Protonix] 40 mg PO DAILY@69909/23/18 12/26/19 Acetaminophen Tab [Tylenol] 650 mg PO QID PRN 12/18/19 12/26/19 Benztropine Mesylate [Cogentin] 1 mg PO HS@209912/18/19 12/26/19 Celecoxib [CeleBREX] 200 mg PO DAILY@69912/18/19 12/26/19 Loperamide [Imodium] 2 - 4 mg PO QID PRN 12/18/19 12/26/19 Magnesium Hydroxide [Milk of 2,400 mg PO DAILY PRN 12/18/19 12/26/19 Magnesia] Medhoney 1 applic TOPICAL HS@209912/18/19 12/26/19 Nystatin 100,000 Unit/gm Powd 1 - 1.5 gm TOPICAL BID PRN 12/18/19 12/26/19 [Mycostatin Powder] QUEtiapine [SEROquel] 50 mg PO HS@209912/18/19 12/26/19 Selsun Blue Sham 1% 1 applic TOPICAL DAILY PRN 12/18/19 12/26/19 Thera Tab 1 tab PO DAILY@0700 12/18/19 12/26/19 busPIRone HCL 15 mg PO BID@0700,1700 12/18/19 12/26/19 Previous Rx's Medication Instructions Recorded ARIPiprazole [Abilify] 10 mg PO HS #30 tab 01/12/20 Metoprolol Tartrate [Lopressor] 25 mg PO BID #60 tab 01/12/20 Tamsulosin [Flomax] 0.4 mg PO PC-SUPPER #30 cap.er.24h 01/12/20 Levofloxacin [Levaquin] 500 mg PO DAILY 21 Days #21 tab 08/08/20 Allergies Allergy/AdvReac Type Severity Reaction Status Date / Time No Known Allergies Allergy Verified 08/08/20 15:30 Review of Systems ROS Statement: Those systems with pertinent positive or pertinent negative responses have been documented in the HPI. ROS Other: All systems not noted in ROS Statement are negative. Past Medical History Past Medical History: Hypertension, Pneumonia, Seizure Disorder Additional Past Medical History / Comment(s): Cerebral palsy, GERD, special needs History of Any Multi-Drug Resistant Organisms: MRSA Date of last positivie culture/infection: 12/19/19 MDRO Source:: LEG MRSA Past Surgical History: No Surgical Hx Reported Additional Past Surgical History / Comment(s): staff is unsure Past Psychological History: No Psychological Hx Reported Smoking Status: Never smoker Past Alcohol Use History: None Reported Past Drug Use History: None Reported - Past Family History family Additional Family Medical History / Comment(s): heart disease runs in the family General Exam - General Exam Comments Initial Comments: GENERAL: Patient is well-developed and well-nourished. Patient is nontoxic and well- hydrated and is in no acute distress. ENT: Neck is soft and supple. No significant lymphadenopathy is noted. Oropharynx is clear. Moist mucous membranes. EYES: The sclera were anicteric and conjunctiva were pink and moist. Extraocular m ovements were intact and pupils were equal round and reactive to light. Eyelids were unremarkable. PULMONARY: Unlabored respirations. Good breath sounds bilaterally. No audible rales rhonchi or wheezing was noted. CARDIOVASCULAR: There is a regular rate and rhythm ABDOMEN: Soft and nontender with normal bowel sounds GENITALIA: Left testicle is enlarged difficult to assess tenderness because the patient does not seem to react to painful stimuli. SKIN: Skin is clear with no lesions or rashes and otherwise unremarkable. NEUROLOGIC: Patient is alert and oriented 0. Cranial nerves II through XII are grossly intact. Motor and sensory are also intact. Normal speech, volume and content. Symmetrical smile. MUSCULOSKELETAL: Normal extremities with adequate strength and full range of motion. LYMPHATICS: No significant lymphadenopathy is noted PSYCHIATRIC: Unable to assess Limitations: altered mental status Course Vital Signs 08/08/20 13:51 Temperature 98.2 F Pulse Rate 88 Respiratory 18 Rate Blood Pressure 119/78 O2 Sat by Pulse 97 Oximetry Medical Decision Making - Medical Decision Making Ultrasound shows a hydrocele on the left side as well as left epididymitis. There might be a mass that needs to be evaluated once the epididymitis resolves. - Lab Data Lab Results 08/08/20 Range/Units 14:15 Urine Color Light Yellow Urine Appearance Clear (Clear) Urine pH 7.0 (5.0-8.0) Ur Specific [place] 1.009 (1.001-1.035) Urine Protein Negative (Negative) Urine Glucose (UA) Negative (Negative) Urine Ketones Negative (Negative) Urine Blood Negative (Negative) Urine Nitrite Negative (Negative) Urine Bilirubin Negative (Negative) Urine Urobilinogen <2.0 (<2.0) mg/dL Ur Leukocyte Esterase Large H (Negative) Urine RBC 5 (0-5) /hpf Urine WBC 22 H (0-5) /hpf Urine Bacteria Rare H (None) /hpf Urine Mucus Rare H (None) /hpf Disposition Clinical Impression: Hydrocele, Epididymitis Disposition: HOME SELF-CARE Condition: Good Instructions (If sedation given, give patient instructions): Epididymitis (ED) Additional Instructions: Patient needs to follow up with urology to determine if the patient has any testicular mass. Prescriptions: Levofloxacin [Levaquin] 500 mg PO DAILY 21 Days #21 tab Is patient prescribed a controlled substance at d/c from ED?: No Referrals: Sam Werner MD [STAFF PHYSICIAN] - 1-2 days Time of Disposition: 15:34
[2020-08-08 14:48] LABS: Appearance,Urine Clear (Clear); Bacteria,Urine Rare /hpf; Bilirubin,Urine Negative (Negative); Blood,Urine Negative (Negative); Color,Urine Light Yellow; Glucose,Urine (UA) Negative (Negative); Ketones,Urine Negative (Negative); Leukocyte Esterase,Urine Large (Negative); Mucus,Urine Rare /hpf; Nitrite,Urine Negative (Negative); Protein,Urine Negative (Negative); RBC,Urine 5 /hpf (0-5); Specific Gravity,Urine 1.009 (1.001-1.035); Urobilinogen,Urine <2.0 mg/dL (<2.0); WBC,Urine 22 /hpf (0-5)
--- NOTE | 2020-08-08 15:27 | US ---
EXAMINATION TYPE: US scrotum with doppler. Grayscale and color Doppler Duplex imaging performed of mandy khalil scrotum. DATE OF EXAM: 08/08/2020 COMPARISON: NONE CLINICAL HISTORY: Swollen testicle. Redness. Patient is mentally and physically disabled, which limi chano visualization. EXAM MEASUREMENTS: TESTICLES: Right Testicle: 3.0 x 2.9 x 3.2 cm Left Testicle: 4.2 x 3.6 x 3.4 cm EPIDIDYMIS HEAD: Right Epididymis: 0.6 x 0.8 x 0.7 cm Left Epididymis: 1.1 x 1.0 x 1.0 cm Doppler performed to assess for testicular vascularity; good bilateral color flow and waveforms are s een. There is no evidence of testicular torsion. Presence of hydroceles: Left Presence of varicoceles: no Possible inferior left lesion vs prominent enlarged epididymis body = 2.6 x 1.6 x 1.2 cm Left epididymis appears hypervascular. IMPRESSION: The epididymis is enlarged on the left and this may reflect epididymitis however underlying lesion is difficult to exclude. Correlate clinically. Left-sided hydrocele noted as well.
[2020-08-08 17:10] VITALS: BP 122/78; PULSE 78; RESP 16; TEMP 97.8
== END 2020-08-08 17:10 | disposition home or self-care (01) ==
LOC: EC 13:43
DX: N43.3 Hydrocele, unspecified (principal); N45.1 Epididymitis; I10 Essential (primary) hypertension; G40.909 Epilepsy, unspecified, not intractable, without status epilepticus; G80.9 Cerebral palsy, unspecified; K21.9 Gastro-esophageal reflux disease without esophagitis; Z79.899 Other long term (current) drug therapy
CPT/HCPCS: 76870; 81001; 87086; 93975; 99284

== ENCOUNTER 2021-02-07 17:31 | Emergency (ER) | payer MEDICARE, OTHER ==
[2021-02-07 18:04] VITALS: BP 149/89; PULSE 93; RESP 18; TEMP 99.9
--- NOTE | 2021-02-07 18:59 | ED ---
General Adult HPI - General Chief complaint: Urogenital Stated complaint: Catheter Replacement Time Seen by Provider: 02/07/21 17:37 Source: EMS, RN notes reviewed, old records reviewed Mode of arrival: EMS - History of Present Illness Initial comments: 65-year-old male visiting for evaluation of urethral erosion secondary to his Garcia catheter. Patient is on hospice however the nurse had recommended that he be evaluated for possible suprapubic catheter. Patient unable to give any details. I did discuss case with the legal guardian who is present - Related Data Home Medications Medication Instructions Recorded Confirmed Imipramine [Tofranil] 10 mg PEG/G-TUBE HS@199906/27/17 08/08/20 lamoTRIgine [LaMICtal] 150 mg PEG/G-TUBE BID@08,199906/27/17 08/08/20 Baclofen [Lioresal] 10 mg PEG/G-TUBE BID@08,199909/23/18 08/08/20 Pantoprazole [Protonix] 40 mg PEG/G-TUBE DAILY@0800 09/23/18 08/08/20 Acetaminophen Tab [Tylenol] 650 mg PEG/G-TUBE Q6H PRN 12/18/19 08/08/20 Celecoxib [CeleBREX] 200 mg PEG/G-TUBE DAILY@0800 12/18/19 08/08/20 Loperamide [Imodium] 2 mg PEG/G-TUBE QID PRN 12/18/19 08/08/20 Nystatin 100,000 Unit/gm Powd 1 - 1.5 gm TOPICAL BID PRN 12/18/19 08/08/20 [Mycostatin Powder] QUEtiapine [SEROquel] 50 mg PEG/G-TUBE HS@199912/18/19 08/08/20 busPIRone HCL 15 mg PEG/G-TUBE BID@0800,1700 12/18/19 08/08/20 ARIPiprazole [Abilify] 10 mg PEG/G-TUBE HS@199908/08/20 08/08/20 Ciprofloxacin HCl [Cipro] 250 mg PEG/G-TUBE Q12HR 08/08/20 08/08/20 Clotrimazole Cream [Lotrimin Cream] 1 applic TOPICAL DAILY PRN 08/08/20 08/08/20 Docusate Oral Soln [Colace Oral 100 mg PO BID@0800,199908/08/20 08/08/20 Soln] Gabapentin Rebekah 250/5ml 200 mg PEG/G-TUBE BID@0800,199908/08/20 08/08/20 Haloperidol 0.5 mg PEG/G-TUBE Q4H PRN 08/08/20 08/08/20 Hyoscyamine Sulfate [Levsin] 0.125 mg PEG/G-TUBE Q4H PRN 08/08/20 08/08/20 Ipratropium-Albuterol Nebulize 3 ml INHALATION RT-BID PRN 08/08/20 08/08/20 [Duoneb 0.5 mg-3 mg/3 ml Soln] Ketamine 20mg/1ml 5 mg PEG/G-TUBE TID@0800,1399,199908/08/20 08/08/20 Ketoconazole 2% Cream [Nizoral 2%] 1 applic TOPICAL DAILY PRN 08/08/20 08/08/20 LORazepam [Ativan] 0.5 mg PEG/G-TUBE BID@0800,199908/08/20 08/08/20 LORazepam [Ativan] 0.5 mg PEG/G-TUBE Q4H PRN 08/08/20 08/08/20 Morphine Sulfate 7.5 mg PEG/G-TUBE HS@199908/08/20 08/08/20 Morphine Sulfate 15 mg PEG/G-TUBE Q4H PRN 08/08/20 08/08/20 Tjidsfju-Dymwlgyhou-Yyag Oint 1 applic TOPICAL DAILY PRN 08/08/20 08/08/20 [Triple Antibiotic Ointment] Pramox-Calamine 1-8% Lotion 1 applic TOPICAL DAILY PRN 08/08/20 08/08/20 [Caladryl] Tamsulosin [Flomax] 0.4 mg PEG/G-TUBE DAILY@0800 08/08/20 08/08/20 diphenhydrAMINE [Benadryl] 25 mg PEG/G-TUBE Q4H PRN 08/08/20 08/08/20 metroNIDAZOLE 0.75% CREAM 1 applic TOPICAL DAILY@0500 08/08/20 08/08/20 [Metrocream] Previous Rx's Medication Instructions Recorded Levofloxacin [Levaquin] 500 mg PO DAILY 21 Days #21 tab 08/08/20 Allergies Allergy/AdvReac Type Severity Reaction Status Date / Time No Known Allergies Allergy Verified 02/07/21 17:51 Review of Systems ROS Statement: Those systems with pertinent positive or pertinent negative responses have been documented in the HPI. ROS Other: All systems not noted in ROS Statement are negative. Past Medical History Past Medical History: Hypertension, Pneumonia, Seizure Disorder Additional Past Medical History / Comment(s): Cerebral palsy, GERD, special needs History of Any Multi-Drug Resistant Organisms: MRSA Date of last positivie culture/infection: 12/19/19 MDRO Source:: LEG MRSA Past Surgical History: No Surgical Hx Reported Additional Past Surgical History / Comment(s): staff is unsure Past Psychological History: No Psychological Hx Reported Smoking Status: Never smoker Past Alcohol Use History: None Reported Past Drug Use History: None Reported - Past Family History family Additional Family Medical History / Comment(s): heart disease runs in the family General Exam General appearance: lethargic Head exam: Present: atraumatic, normocephalic Eye exam: Present: normal appearance, PERRL ENT exam: Present: mucous membranes dry Neck exam: Present: normal inspection. Absent: tenderness, meningismus Respiratory exam: Present: normal lung sounds bilaterally. Absent: respiratory distress, wheezes Cardiovascular Exam: Present: regular rate, normal rhythm GI/Abdominal exam: Present: soft. Absent: distended, tenderness exam: Present: other (Garcia catheter with urethral erosion) Course Vital Signs 02/07/21 17:41 Temperature 99.9 F H Pulse Rate 93 Respiratory 18 Rate Blood Pressure 149/89 O2 Sat by Pulse 97 Oximetry Medical Decision Making - Medical Decision Making I did discuss case with Dr. Werner covering for urology, he does not recommend surgical intervention for suprapubic catheter. I discussed this with the legal guardian who is agreeable. Patient will be discharged back to the assisted living facility where he resides. Disposition Clinical Impression: Urethral erosion by catheter Disposition: HOME SELF-CARE Condition: Good Instructions (If sedation given, give patient instructions): Garcia Catheter Placement and Care (ED) Is patient prescribed a controlled substance at d/c from ED?: No Referrals: None,Stated [Primary Care Provider] - 1-2 days Time of Disposition: 18:57
== END 2021-02-07 19:30 | disposition home or self-care (01) ==
LOC: EC 17:31
DX: T83.712A Erosion of implanted urethral mesh to surrounding organ or tissue, initial encounter (principal); N36.8 Other specified disorders of urethra; I10 Essential (primary) hypertension; K21.9 Gastro-esophageal reflux disease without esophagitis; Z51.5 Encounter for palliative care; Y82.8 Other medical devices associated with adverse incidents
CPT/HCPCS: 99283

== ENCOUNTER 2021-02-12 22:17 | Emergency (ER) | payer MEDICARE, OTHER ==
[2021-02-12 22:34] VITALS: TEMP 99.1
--- NOTE | 2021-02-12 23:28 | XR ---
EXAMINATION TYPE: XR chest 1V portable DATE OF EXAM: 02/12/2021 COMPARISON: 01/07/2020 HISTORY: Fever TECHNIQUE: Single view FINDINGS: There is coarsening of interstitial markings. There is significant arthritic disease in the shoulder joints. There is no obvious heart failure. Heart size is fairly normal. IMPRESSION: Pulmonary interstitial fibrosis. No change compared to old exam. 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
[2021-02-12 23:47] LABS: Basophils # (A) 0.1 k/uL (0-0.2); Basophils % (A) 1 %; Eosinophils # (A) 0.2 k/uL (0-0.7); Eosinophils % (A) 2 %; HCT 41.3 % (39.0-53.0); HGB 14.1 gm/dL (13.0-17.5); Lymphocytes # (A) 1.6 k/uL (1.0-4.8); Lymphocytes % (A) 15 %; MCH 32.2 pg (25.0-35.0); MCHC 34.1 g/dL (31.0-37.0); MCV 94.5 fL (80.0-100.0); Monocytes # (A) 1.1 k/uL (0-1.0); Monocytes % (A) 10 %; Neutrophils # (A) 7.6 k/uL (1.3-7.7); Neutrophils % (A) 71 %; Platelet Count 208 k/uL (150-450); RBC 4.37 m/uL (4.30-5.90); RDW 12.6 % (11.5-15.5); WBC 10.8 k/uL (3.8-10.6)
[2021-02-13 00:12] LABS: ALT 18 U/L (4-49); AST 32 U/L (17-59); African American GFR (CKD) >90 (>60 ml/min/1.73 sqM); Albumin 3.9 g/dL (3.5-5.0); Alkaline Phosphatase 130 U/L (38-126); Anion Gap 7 mmol/L; Blood Urea Nitrogen 14 mg/dL (9-20); Calcium 9.4 mg/dL (8.4-10.2); Carbon Dioxide 26 mmol/L (22-30); Chloride 102 mmol/L (98-107); Glucose 105 mg/dL (74-99); Non-African American GFR(CKD) >90 (>60 ml/min/1.73 sqM); Potassium 4.4 mmol/L (3.5-5.1); Sodium 135 mmol/L (137-145); Total Bilirubin 0.6 mg/dL (0.2-1.3); Total Protein 6.8 g/dL (6.3-8.2)
[2021-02-13 01:45] LABS: Amorphous Sediment,Urine Occasional /hpf; Appearance,Urine Cloudy (Clear); Bacteria,Urine Moderate /hpf; Bilirubin,Urine Negative (Negative); Blood,Urine Negative (Negative); Color,Urine Yellow; Glucose,Urine (UA) Negative (Negative); Ketones,Urine Negative (Negative); Leukocyte Esterase,Urine Large (Negative); Mucus,Urine Occasional /hpf; Nitrite,Urine Positive (Negative); PH, Urine 5.5 (5.0-8.0); Protein,Urine Trace (Negative); RBC,Urine 2 /hpf (0-5); Specific Gravity,Urine 1.025 (1.001-1.035); Urobilinogen,Urine <2.0 mg/dL (<2.0); WBC,Urine 59 /hpf (0-5)
[2021-02-13] MEDS ORDERED: SULFAMETHOX-TMP 800-160MG 1 EACH TAB PO STA (02:06)
--- NOTE | 2021-02-13 02:08 | ED ---
Fever HPI - General Chief Complaint: Fever Stated Complaint: weakness Time Seen by Provider: 02/12/21 22:48 Source: EMS, Caregiver Mode of arrival: EMS Limitations: language barrier, physical limitation - History of Present Illness Initial Comments: This patient is 65-year-old man with history of cerebral palsy and debility who presents to be evaluated for fever. Also history comes from patient's caregiver, patient denies pain or dyspnea. They had noted fever. Patient does have long-term catheter. Denies dyspnea or productive cough. MD Complaint: fever Onset/Timin -: days(s) Associated Symptoms: denies other symptoms Treatments Prior to Arrival: none - Related Data Home Medications Medication Instructions Recorded Confirmed Imipramine [Tofranil] 10 mg PEG/G-TUBE HS@2200 06/27/17 02/12/21 Baclofen [Lioresal] 10 mg PEG/G-TUBE BID@0600,1800 09/23/18 02/12/21 Pantoprazole [Protonix] 40 mg PEG/G-TUBE DAILY@0600 09/23/18 02/12/21 Acetaminophen Tab [Tylenol] 650 mg PEG/G-TUBE BID@0600,1800 12/18/19 02/12/21 Loperamide [Imodium] 2 mg PEG/G-TUBE QID PRN 12/18/19 02/12/21 Nystatin 100,000 Unit/gm Powd 1 - 1.5 gm TOPICAL BID PRN 12/18/19 02/12/21 [Mycostatin Powder] busPIRone HCL 15 mg PEG/G-TUBE BID@0600,1800 12/18/19 02/12/21 Docusate Oral Soln [Colace Oral 100 mg PEG/G-TUBE BID PRN 08/08/20 02/12/21 Soln] Hyoscyamine Sulfate [Levsin] 0.125 mg PEG/G-TUBE Q4H PRN 08/08/20 02/12/21 Ipratropium-Albuterol Nebulize 3 ml INHALATION RT-BID@0800,2000 08/08/20 02/12/21 [Duoneb 0.5 mg-3 mg/3 ml Soln] Ketamine 20mg/1ml 5 mg PEG/G-TUBE TID@0600,1400,2200 08/08/20 02/12/21 LORazepam [Ativan] 0.5 mg PEG/G-TUBE Q4H PRN 08/08/20 02/12/21 LORazepam [Ativan] 0.5 mg PEG/G-TUBE Q6H 08/08/20 02/12/21 Fvpviphc-Zlvcmuaheu-Bifo Oint 1 applic TOPICAL DAILY@0800 08/08/20 02/12/21 [Triple Antibiotic Ointment] Pramox-Calamine 1-8% Lotion 1 applic TOPICAL DAILY PRN 08/08/20 02/12/21 [Caladryl] Tamsulosin [Flomax] 0.4 mg PEG/G-TUBE DAILY@0600 08/08/20 02/12/21 diphenhydrAMINE [Benadryl] 25 mg PEG/G-TUBE Q4H PRN 08/08/20 02/12/21 Acetaminophen [Tylenol] 650 mg PO Q4H PRN 02/07/21 02/12/21 Gabapentin 250mg/5ml 200 mg PEG/G-TUBE BID@0600,1800 02/07/21 02/12/21 HYDROmorphone [Dilaudid] 2 mg PEG/G-TUBE Q2H PRN 02/07/21 02/12/21 HYDROmorphone [Dilaudid] 2 mg PEG/G-TUBE QID 02/07/21 02/12/21 Haloperidol 1 mg PEG/G-TUBE Q4H PRN 02/07/21 02/12/21 Haloperidol 1 mg PEG/G-TUBE Q6H 02/07/21 02/12/21 Ipratropium-Albuterol Nebulize 3 ml INHALATION RT-Q12H PRN 02/07/21 02/12/21 [Duoneb 0.5 mg-3 mg/3 ml Soln] Pvbinhgd-Gjydvlqhiz-Sccg Oint 1 applic TOPICAL DAILY PRN 02/07/21 02/12/21 [Triple Antibiotic Ointment] Petrolatum, White [Aquaphor] 1 applic TOPICAL DAILY PRN 02/07/21 02/12/21 metroNIDAZOLE 0.75% CREAM 1 applic TOPICAL DAILY@0500 02/07/21 02/12/21 [Metrocream] Previous Rx's Medication Instructions Recorded Sulfamethox-Tmp 800-160Mg [Bactrim 1 each PO Q12HR #14 tab 02/13/21 Ds] Allergies Allergy/AdvReac Type Severity Reaction Status Date / Time No Known Allergies Allergy Verified 02/12/21 22:53 Review of Systems ROS Statement: Those systems with pertinent positive or pertinent negative responses have been documented in the HPI. ROS Other: All systems not noted in ROS Statement are negative. Limitations: ROS unobtainable due to patients medical condition Constitutional: Reports: fever. Denies: chills ENT: Denies: ear pain, congestion Respiratory: Denies: cough, dyspnea Cardiovascular: Denies: chest pain Gastrointestinal: Denies: abdominal pain, vomiting, diarrhea Genitourinary: Reports: other (Catheter) Skin: Denies: rash, lesions Neurological: Denies: headache Past Medical History Past Medical History: Hypertension, Pneumonia, Seizure Disorder Additional Past Medical History / Comment(s): Cerebral palsy, GERD, special needs History of Any Multi-Drug Resistant Organisms: MRSA Date of last positivie culture/infection: 12/19/19 MDRO Source:: LEG MRSA Past Surgical History: No Surgical Hx Reported Additional Past Surgical History / Comment(s): staff is unsure Past Psychological History: No Psychological Hx Reported Smoking Status: Never smoker Past Alcohol Use History: None Reported Past Drug Use History: None Reported - Past Family History family Additional Family Medical History / Comment(s): heart disease runs in the family General Exam Limitations: physical limitation General appearance: alert, in no apparent distress, cachectic Head exam: Present: atraumatic, normocephalic Eye exam: Present: normal appearance. Absent: scleral icterus, conjunctival injection ENT exam: Present: normal oropharynx Neck exam: Present: full ROM. Absent: tenderness, meningismus Respiratory exam: Present: normal lung sounds bilaterally. Absent: respiratory distress, wheezes, rales, rhonchi, stridor Cardiovascular Exam: Present: regular rate, normal rhythm, normal heart sounds. Absent: systolic murmur, diastolic murmur, rubs, gallop GI/Abdominal exam: Present: soft. Absent: distended, tenderness, guarding, mass, hernia Extremities exam: Present: normal capillary refill, other (Contractures) Back exam: Absent: CVA tenderness (R), CVA tenderness (L) Neurological exam: Present: alert Skin exam: Present: warm, dry, intact, normal color. Absent: rash Course Vital Signs 02/12/21 02/12/21 02/13/21 22:25 22:45 01:15 Temperature 99.1 F Pulse Rate 105 H 109 H Pulse Rate [ 78 Right Radial] Respiratory 16 20 Rate Blood Pressure 120/82 113/86 O2 Sat by Pulse 97 95 Oximetry 02/13/21 02/13/21 02:00 02:30 Temperature Pulse Rate 117 H 105 H Pulse Rate [ Right Radial] Respiratory 20 20 Rate Blood Pressure 122/90 131/85 O2 Sat by Pulse 95 95 Oximetry Medical Decision Making - Medical Decision Making Patient is 65-year-old man presenting with fever. He has no additional complaints. There are white blood cells in the urine however chronic Garcia catheter. At this point will give antibiotic and culture urine. Patient without other complaints and would prefer to be at home. Patient seems stable for this and return parameters discussed. - Lab Data Result diagrams: 02/12/21 23:30 02/12/21 23:30 Lab Results 02/12/21 02/12/21 02/12/21 Range/Units 23:30 23:30 23:30 WBC 10.8 H (3.8-10.6) k/uL RBC 4.37 (4.30-5.90) m/uL Hgb 14.1 (13.0-17.5) gm/dL Hct 41.3 (39.0-53.0) % MCV 94.5 (80.0-100.0) fL MCH 32.2 (25.0-35.0) pg MCHC 34.1 (31.0-37.0) g/dL RDW 12.6 (11.5-15.5) % Plt Count 208 (150-450) k/uL MPV 8.0 Neutrophils % 71 % Lymphocytes % 15 % Monocytes % 10 % Eosinophils % 2 % Basophils % 1 % Neutrophils # 7.6 (1.3-7.7) k/uL Lymphocytes # 1.6 (1.0-4.8) k/uL Monocytes # 1.1 H (0-1.0) k/uL Eosinophils # 0.2 (0-0.7) k/uL Basophils # 0.1 (0-0.2) k/uL Sodium 135 L (137-145) mmol/L Potassium 4.4 (3.5-5.1) mmol/L Chloride 102 (98-107) mmol/L Carbon Dioxide 26 (22-30) mmol/L Anion Gap 7 mmol/L BUN 14 (9-20) mg/dL Creatinine 0.32 L (0.66-1.25) mg/dL Est GFR (CKD-EPI)AfAm >90 (>60 ml/min/1.73 sqM) Est GFR (CKD-EPI)NonAf >90 (>60 ml/min/1.73 sqM) Glucose 105 H (74-99) mg/dL Plasma Lactic Acid Sj 0.9 (0.7-2.0) mmol/L Calcium 9.4 (8.4-10.2) mg/dL Total Bilirubin 0.6 (0.2-1.3) mg/dL AST 32 (17-59) U/L ALT 18 (4-49) U/L Alkaline Phosphatase 130 H (38-126) U/L Total Protein 6.8 (6.3-8.2) g/dL Albumin 3.9 (3.5-5.0) g/dL Urine Color Urine Appearance (Clear) Urine pH (5.0-8.0) Ur Specific Homer (1.001-1.035) Urine Protein (Negative) Urine Glucose (UA) (Negative) Urine Ketones (Negative) Urine Blood (Negative) Urine Nitrite (Negative) Urine Bilirubin (Negative) Urine Urobilinogen (<2.0) mg/dL Ur Leukocyte Esterase (Negative) Urine RBC (0-5) /hpf Urine WBC (0-5) /hpf Amorphous Sediment (None) /hpf Urine Bacteria (None) /hpf Urine Mucus (None) /hpf 02/13/21 Range/Units 01:17 WBC (3.8-10.6) k/uL RBC (4.30-5.90) m/uL Hgb (13.0-17.5) gm/dL Hct (39.0-53.0) % MCV (80.0-100.0) fL MCH (25.0-35.0) pg MCHC (31.0-37.0) g/dL RDW (11.5-15.5) % Plt Count (150-450) k/uL MPV Neutrophils % % Lymphocytes % % Monocytes % % Eosinophils % % Basophils % % Neutrophils # (1.3-7.7) k/uL Lymphocytes # (1.0-4.8) k/uL Monocytes # (0-1.0) k/uL Eosinophils # (0-0.7) k/uL Basophils # (0-0.2) k/uL Sodium (137-145) mmol/L Potassium (3.5-5.1) mmol/L Chloride (98-107) mmol/L Carbon Dioxide (22-30) mmol/L Anion Gap mmol/L BUN (9-20) mg/dL Creatinine (0.66-1.25) mg/dL Est GFR (CKD-EPI)AfAm (>60 ml/min/1.73 sqM) Est GFR (CKD-EPI)NonAf (>60 ml/min/1.73 sqM) Glucose (74-99) mg/dL Plasma Lactic Acid Sj (0.7-2.0) mmol/L Calcium (8.4-10.2) mg/dL Total Bilirubin (0.2-1.3) mg/dL AST (17-59) U/L ALT (4-49) U/L Alkaline Phosphatase (38-126) U/L Total Protein (6.3-8.2) g/dL Albumin (3.5-5.0) g/dL Urine Color Yellow Urine Appearance Cloudy (Clear) Urine pH 5.5 (5.0-8.0) Ur Specific Homer 1.025 (1.001-1.035) Urine Protein Trace H (Negative) Urine Glucose (UA) Negative (Negative) Urine Ketones Negative (Negative) Urine Blood Negative (Negative) Urine Nitrite Positive (Negative) Urine Bilirubin Negative (Negative) Urine Urobilinogen <2.0 (<2.0) mg/dL Ur Leukocyte Esterase Large H (Negative) Urine RBC 2 (0-5) /hpf Urine WBC 59 H (0-5) /hpf Amorphous Sediment Occasional H (None) /hpf Urine Bacteria Moderate H (None) /hpf Urine Mucus Occasional H (None) /hpf Disposition Clinical Impression: Urinary tract infection Disposition: HOME SELF-CARE Condition: Good Instructions (If sedation given, give patient instructions): Catheter- associated Urinary Tract Infection (ED) Prescriptions: Sulfamethox-Tmp 800-160Mg [Bactrim Ds] 1 each PO Q12HR #14 tab Is patient prescribed a controlled substance at d/c from ED?: No Referrals: None,Stated [Primary Care Provider] - 1-2 days
[2021-02-13 02:47] VITALS: BP 131/85; PULSE 105; RESP 20
== END 2021-02-13 04:15 | disposition home or self-care (01) ==
LOC: EC 22:17
DX: N39.0 Urinary tract infection, site not specified (principal); I10 Essential (primary) hypertension; K21.9 Gastro-esophageal reflux disease without esophagitis
CPT/HCPCS: 36415; 71045; 80053; 81001; 83605; 85025; 87040; 87086; 99283